=== PATIENT | female | born 1945 | race Caucasian/White ===

== ENCOUNTER 2025-02-14 20:15 | Emergency (ER) | payer MEDICARE, SELFPAY ==
--- NOTE | ~2025-02-14 | CT_ITS ---
History: Fall PROCEDURE: CT cervical spine without intravenous contrast. COMPARISON: None TECHNIQUE: Multiple contiguous axial images of the cervical spine were performed without the administration of i ntravenous contrast. DLP: 110 mGy-cm FINDINGS: Preservation of the normal curvature of the cervical spine is identified. Significant degenerative disease is identified, with osteophyte formation, disc space narrowing and e ndplate changes. 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 No acute fractures are present. The bilateral lung apices are unremarkable. No soft tissue abnormality is present. The airway is unremarkable. Impression: Degenerative disease, without acute fracture. Reviewed, dictated and finalized at location A. Impression: Degenerative disease, without acute fracture.
--- NOTE | ~2025-02-14 | CT_ITS ---
History: Fall PROCEDURE: CT head without contrast. COMPARISON: None TECHNIQUE: Axial imaging of the head performed from the skull base to the vertex without IV contrast. Sagittal a nd coronal reformations obtained. DLP: 681 mGy-cm FINDINGS: The ventricles are enlarged. The dilatation of the ventricles is proportional to the degree of sulcal prominence, not uncommon in the senescent brain. Decreased attenuation is identified within the periventricular white matter, likely secondary to micr ovascular ischemic disease, in a patient of this age. Left-sided basal ganglia calcifications. There is no mass, mass effect or midline shift. There is no abnormal extra-axial fluid collection or intracranial hemorrhage. Visualized paranasal sinuses are clear. The mastoid air cells are well aerated. No acute displaced fractures within the overlying cranium. Impression: No acute intracranial hemorrhage or suspicious mass effect. Reviewed, dictated and finalized at location A. Impression: No acute intracranial hemorrhage or suspicious mass effect.
--- NOTE | ~2025-02-14 | XR_ITS ---
CHEST RADIOGRAPH CLINICAL HISTORY: Weakness . COMPARISON: None available TECHNIQUE: Single portable view of the chest. FINDINGS The cardiomediastinal silhouette is elongated. Traction bronchiectasis is identified. Moderate emphysematous disease is also noted. The remainder of the lungs are clear. IMPRESSION: Findings suggesting chronic obstructive pulmonary disease, without focal infiltrate. Reviewed, dictated and finalized at location A. IMPRESSION: Findings suggesting chronic obstructive pulmonary disease, without focal infilt rate.
[2025-02-14 20:19] VITALS: BP 113/81; PULSE 96; RESP 15; TEMP 36.7; O2SAT 97
--- NOTE | 2025-02-14 20:25 | ECG_ITS ---
Test Date: 2025-02-14 20:27:19 Measurements Intervals [place] Rate: 91 P: 0 NE: 0 QRS: 71 QRSD: 79 T: 22 QT: 310 QTc: 383 Interpretive Statements SINUS RHYTHM WITH SHORT NE INTERVAL AND PACS NONSPECIFIC ST & T-WAVE ABNORMALITY No previous ECG available for comparison Electronically Signed On 02-15-2025 17:31:[address] M.D.
--- OUTSIDE RECORDS SUMMARY | 2025-02-14 21:06 | XMS_ITS | Encounter Summary ---
Author Organization [employer] Address 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
--- OUTSIDE RECORDS SUMMARY | 2025-02-14 21:06 | XMS_ITS | Encounter Summary ---
Author Organization [employer] Address 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
--- OUTSIDE RECORDS SUMMARY | 2025-02-14 21:06 | XMS_ITS | Clinical Summary ---
Author Organization [facility] Address [address] [place] [address] Phone Care Team Providers Care Pt Escort Name Role Phone Unavailable Primary Care Provider Unavailabl e Allergies No known active allergies Medications MULTIVITAMINS WITH FLUORIDE (MULTI-VITAMIN ORAL) Take by mouth. Activ e denosumab (PROLIA) 60 mg/mL Syringe Inject 60 mg by subcutaneous injection. Active oxyCODONE-aceta minophen (PERCOCET) 10-325 mg Tablet Take by mouth take 1-2 tabs po q 6 hr prn. 0 8 Active diazePAM (VALIUM) 5 mg tablet Take 5 mg by mouth take 1 tab po 6 hr prn anxiety or muscle spasm. 1 8 Active glucosamine/cho ndr morales A sod (OSTEO BI-FLEX ORAL) Take by mouth daily. Active Active Problems Problem Noted Date Diagnosed Date Osteoarthritis of spine 03/07/2016 Osteoporosis 03/07/2016 Overview (10/03/2018): Overview: Dr. Benjie Krause for 5 years. Brayan currently. Primary insomnia 03/07/2016 Immunizations Immunization Administration Dates Next Due (PREVNAR 13)(6 WKS UP) PNEUM OCOCCAL CONJUGATE (PCV13) 0.5 ML, IM 03/07/2016 Influenza Seasonal Unspecifi ed Formulation IM 08/29/2018,08/27/2017,08/27/2016 Family History Medical History Relation Name Comments Cancer Father Prostate Cancer Father Unknown Maternal Grandfather Unknown Maternal Grandmother Breast Cancer Mother Cancer Mother Hypertension Mother Unknown Paternal Grandfather Unknown Paternal Grandmother Healthy Sister Healthy Son Colon Cancer Neg Hx Ovarian Cancer Neg Hx Relation Name Status Comments Father Maternal Grandfather Maternal Grandmother Mother Alive Paternal Grandfather Paternal Grandmother Sister Alive Son Alive Social History Tobacco Use Types Packs/Day Years Used Date Smoking Tobacco: Never Smokeless Tobacco: Never Alcohol Use Standard Drinks/Week Comments No 0 (1 standard drink = 0.6 oz pur e alcohol) Comments No Sex and Gender Information Value Date Recorded Sex Assigned at Not on file Legal Sex Female 5:24 AM NYLON MACHINE OPERATOR Gender Identity Not on file Sexual Orientation Not on file Occupation Industry Job Start Date Job End Date Not on file Not on file Not on file Not on file Not on file Not on file Not on file Not on file Last Filed Vital Signs Vital Sign Reading Time Taken Comments Blood Pressure 134/58 10/03/2018 8:38 AM NYLON MACHINE OPERATOR Pulse 68 10/03/2018 8:38 AM NYLON MACHINE OPERATOR Temperature - - Respiratory Rate - - Oxygen Saturation 95% 10/03/2018 8:38 AM NYLON MACHINE OPERATOR Inhaled Oxygen Concentration - - Weight 53.1 kg (117 lb) 10/03/2018 8:38 AM NYLON MACHINE OPERATOR Height 157.5 cm (5' 2 ) 10/03/2018 8:38 AM NYLON MACHINE OPERATOR Body Mass Index 21.4 10/03/2018 8:38 AM NYLON MACHINE OPERATOR Plan of Treatment Health Maintenance Due Date Last Done Comments DTAP/TDAP/TD VACCINES (1 - Tdap) 1962 ZOSTER VACCINE (1 of 2) 1993 PNEUMOCOCCAL VACCINE 50+ YEA RS (2 of 2 - PPSV23) 03/07/2017 03/07/2016 RSV VACCINE (60+ or ) (1 - 1-dose 75+ series) 2018 INFLUENZA VACCINE (#1) 2024 8, 08/27/2017, 08/27/2016 COLORECTAL SCREENING Discontinued 02/09/2012 Colorectal Cancer Screening Discontinued OSTEOPOROSIS SCREENING Completed 8, 02/01/2017, 08/24/2016, Additional history exists FIT-DNA Q 3 years Discontinued FIT/FOBT Q 1 year Discontinued Flex Sig/CT Colonography Q 5 years Discontinued Insurance MEDICARE PART A [place] [id number]
--- OUTSIDE RECORDS SUMMARY | 2025-02-14 21:06 | XMS_ITS | Encounter Summary ---
Author Organization [facility] Address 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
--- OUTSIDE RECORDS SUMMARY | 2025-02-14 21:06 | XMS_ITS | Encounter Summary ---
Author Organization [employer] Address 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
--- OUTSIDE RECORDS SUMMARY | 2025-02-14 21:06 | XMS_ITS | Encounter Summary ---
Author Organization [employer] Address [address] [place] [address] Care Team Providers Care Transfer Pumper Name Role Phone Leann Kennedy MD Primary Care Provider [phone] Encounter Details Date Type Department Care Team (Late st Contact Info) Description 07/17/2002 [facility] [address] [place] [address] Larry De La O MD NO ADDRESS ON FILE Social History Tobacco Use Types Packs/Day Years Used Date Smoking Tobacco: Never Assessed Comments Unknown Sex and Gender Information Value Date Recorded Sex Assigned at Not on file Legal Sex Female 5:24 AM EXPERIMENTAL WORKER Gender Identity Not on file Sexual Orientation Not on file documented as of this encounter Plan of Treatment Not on file documented as of this encounter Visit Diagnoses Not on filedocumented in this encounter Care Teams Transfer Pumper Relationship Specialty [place] [address] [address] PCP - General Family Practice 10/03/18 10/05/20 documented as of this encounter
--- OUTSIDE RECORDS SUMMARY | 2025-02-14 21:06 | XMS_ITS | Clinical Summary ---
Author Organization [facility] Address [address] [place] [address] Care Team Providers Care Nuclear Reactor Technician Name Role Phone Alicja Waldrop MD Unavailable [phone] aSul Castrejon MD Unavailable [phone] Source Comments [facility],non-owned Affiliates and Associated Physician Practices is amultiple site organization consisting of ambulatory clinics and hospital sitesin [place], [place], [place] and [place]. This disclosure is being madepursuant to the Care Everywhere program and may not contain all information available regarding this patient. Last updated 18.[facility] [employer] Allergies No known active allergies Medications * Be aware that medications may not be up to date on this document. Alwaysverify current medications with the patient. Medication Sig Dispensed Refills Start Date End Date Status oxyCODONE-acetamin ophen (PERCOCET) 7.5-325 MG tablet Take 1 Tab by mouth every 6 hours as needed 0 02/08/2016 Active Multiple Vitamins-Minerals (CENTRUM SILVER ADULT 50+ PO) Take 1 Tab by mouth once daily Active Calcium-Phosphorus -Vitamin D (CITRACAL +D3 PO) Take 1 Each by mouth 2 times daily Active denosumab (PROLIA) 60 MG/ML SC injection Inject 60 mg subcutaneously once Every 6 months. Active Active Problems Problem Noted Date Diagnosed Date Osteoporosis 03/07/2016 Overview (03/07/2016): Dr. Benjie Krause for 5 years. Brayan currently. Primary insomnia 03/07/2016 Osteoarthritis of spine 03/07/2016 Resolved Problems Problem Noted Date Diagnosed Date Resolved Date Trauma 08/30/2017 08/30/2017 Immunizations Name Administration Dates Next Due INFLUENZA VACCINE 08/27/2017,08/27/2016 Pneumococcal Pcv13 Conj 03/07/2016 Family History Medical History Relation Name Comments Cancer - Prostate Father Cancer - Breast Mother Hypertension Mother Relation Name Status Comments Father Mother Social History Tobacco Use Types Packs/Day Years Used Date Smoking Tobacco: Never Smokeless Tobacco: Never Tobacco Cessation:Counseling Given: Yes Alcohol Use Standard Drinks/Week Comments No 0 (1 standard drink = 0.6 oz pur e alcohol) Sex and Gender Information Value Date Recorded Sex Assigned at Not on file Gender Identity Not on file Sexual Orientation Not on file Last Filed Vital Signs Vital Sign Reading Time Taken Comments Blood Pressure 124/70 08/30/2017 10:36 AM CDT Pulse 72 08/30/2017 10:36 AM CDT Temperature - - Respiratory Rate 14 08/30/2017 10:36 AM CDT Oxygen Saturation - - Inhaled Oxygen Concentration - - Weight 54 kg (119 lb) 09/06/2017 1:20 PM CDT Height 154.9 cm (5' 1 ) 09/06/2017 1:20 PM CDT Body Mass Index 22.48 09/06/2017 1:20 PM CDT Plan of Treatment Health Maintenance Due Date Last Done Comments DTAP/TDAP/TD VACCINES (1 - Tdap) 1962 ZOSTER VACCINE (1 of 2) 1993 PNEUMOCOCCAL VACCINE 50+ (2 of 2 - PPSV23) 03/07/2017 03/07/2016 BONE DENSITY TESTING 01/26/2018 01/27/2016 Respiratory Syncytial Virus (RSV) Vaccine Pt: or over 60 yrs (1 - 1-dose 75+ series) 2018 MEDICARE AWV 12 MONTHS 09/06/2018 09/06/2017, 03/07/2016 COVID-19 VACCINE (2023-2 5 season) 2024 INFLUENZA VACCINE (#1) 2024 7, 08/27/2016 DEPRESSION SCREENING 11/27/2024 HEPATITIS B VACCINE Aged Out No longe r eligible based on patient's age to complete this topic HIB VACCINE Aged Out No longer eligi ble based on patient's age to complete this topic HPV VACCINE Aged Out No longer eligi ble based on patient's age to complete this topic MENINGOCOCCAL (Group B) VACCINE SHARED DECISION-MAKING Aged Out No longer eligible based on patient's age to complete this topic MENINGOCOCCAL GROUPS A/C/Y/W VACCINE Aged Out No longer eligible b ased on patient's age to complete this topic Insurance Payer Benefit Plan / Group Subscriber ID Effective Dates Phone Address Type MEDICARE WPS MEDICARE PART B [id number] 2008-Prese nt [address] [address] [place] [address] Medicare AARP AARP MEDICARE SUPPLEMENT [id number] Effective for all dates [address] [place] [address] Commercial MEDICARE MEDICARE PART A AND B [id number] 2008-Prese nt [address] [place] [address] Medicare AAR AAR MEDICARE SUPPLEMENT [id number] 2015-Prese nt [address] [place] [address] Commercial Care Teams Nuclear Reactor Technician Relationship Specialty Start Date End Date Alicja Waldrop MD [address] [place] [address] Internal Medicine 03/07/16 Saul Castrejon MD [address] [address] Internal Medicine 03/07/16
--- OUTSIDE RECORDS SUMMARY | 2025-02-14 21:06 | XMS_ITS | Encounter Summary ---
Author Organization [employer] Address [address] [place] [address] Care Team Providers Care Caustics Loader Name Role Phone Leann Kennedy MD Primary Care Provider [phone] Encounter Details Date Type Department Care Team (Late st Contact Info) Description 06/14/2002 Outpatient Historical [facility] Support Serv. ([facility]) [address] 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
--- OUTSIDE RECORDS SUMMARY | 2025-02-14 21:06 | XMS_ITS | Encounter Summary ---
Author Organization [facility] Address [address] [place] [address] Care Team Providers Care Lead Injection Mold Technician Name Role Phone Sal Pearson MD Primary Care Provider Anastacio Lopez CROTCH BREAKER Primary Care Provider [phone] No, Physician Primary Care Provider [phone] Encounter Details Date Type Department Care Team (Late st Contact Info) Description 03/26/[address] [facility] [address] [place] [phone] Nicola Acosta, RT Social History Tobacco Use Types Packs/Day Years Used Date Smoking Tobacco: Never Smokeless Tobacco: Never Alcohol Use Standard Drinks/Week Comments No 0 (1 standard drink = 0.6 oz pur e alcohol) Comments No Sex and Gender Information Value Date Recorded Sex Assigned at Not on file Legal Sex Female 1:17 PM RELIEF PHARMACIST Gender Identity Not on file Sexual Orientation Not on file documented as of this encounter Plan of Treatment Not on file documented as of this encounter Visit Diagnoses Not on filedocumented in this encounter Care Teams Lead Injection Mold Technician Relationship Specialty Start Date End Date Sal Pearson MD [address] [facility] [address] [place] [address] PCP - General 06/25/20 12/21/21 Anastacio Lopez NP [address] [address] PCP - General Internal Medicine 12/22/21 09/11/24 No, Physician PCP - General 09/12/24 documented as of this encounter
--- OUTSIDE RECORDS SUMMARY | 2025-02-14 21:06 | XMS_ITS | Encounter Summary ---
Author Organization [employer] Address [address] [place] [address] Care Team Providers Care Agriculture Technician Name Role Phone Leann Kennedy MD Primary Care Provider [phone] Encounter Details Date Type Department Care Team (Late st Contact Info) Description 05/28/2002 Outpatient Historical [facility] Gaum, Fidel Rosa MD NO ADDRESS ON FILE CALCULUS OF KIDNEY (Primary Dx) Social History Tobacco Use Types Packs/Day Years Used Date Smoking Tobacco: Never Assessed Comments Unknown Sex and Gender Information Value Date Recorded Sex Assigned at Not on file Legal Sex Female 5:24 AM MANAGER LOCATION Gender Identity Not on file Sexual Orientation Not on file documented as of this encounter Plan of Treatment Not on file documented as of this encounter Visit Diagnoses Diagnosis Calculus of kidney- Primary documented in this encounter Care Teams Agriculture Technician Relationship Specialty [place] [address] [facility] [address] [place] [phone] PCP - General Family Practice 10/03/18 10/05/20 documented as of this encounter
--- OUTSIDE RECORDS SUMMARY | 2025-02-14 21:06 | XMS_ITS | Encounter Summary ---
Author Organization [employer] Address [address] [place] [address] Care Team Providers Care Credit Authorizer Name Role Phone Leann Kennedy MD Primary Care Provider [phone] Encounter Details Date Type Department Care Team (Latest Contact Info) Description 07/17/[address] [facility] TETE Madrigal, Fidel Rosa MD NO ADDRESS ON FILE CALCULUS OF KIDNEY (Primary Dx) Social History Tobacco Use Types Packs/Day Years Used Date Smoking Tobacco: Never Assessed Comments Unknown Sex and Gender Information Value Date Recorded Sex Assigned at Not on file Legal Sex Female 5:24 AM CYBER POLICY AND STRATEGY PLANNER Gender Identity Not on file Sexual Orientation Not on file documented as of this encounter Plan of Treatment Not on file documented as of this encounter Visit Diagnoses Diagnosis Calculus of kidney- Primary documented in this encounter Care Teams Credit Authorizer Relationship Specialty [place] [address] [facility] [address] [place] [phone] PCP - General Family Practice 10/03/18 10/05/20 documented as of this encounter
--- OUTSIDE RECORDS SUMMARY | 2025-02-14 21:06 | XMS_ITS | Encounter Summary ---
Author Organization [employer] Address 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
--- OUTSIDE RECORDS SUMMARY | 2025-02-14 21:06 | XMS_ITS | Encounter Summary ---
Author Organization [employer] Address [address] [place] [address] Care Team Providers Care Consulting Practice Manager Name Role Phone Leann Kennedy MD Primary Care Provider [phone] Encounter Details Date Type Department Care Team (Latest Contact Info) Description 09/18/2002 Outpatient Historical HIS [facility] T[facility]E Madrigal, Fidel Rosa MD NO ADDRESS ON FILE CALCULUS OF KIDNEY (Primary Dx) Social History Tobacco Use Types Packs/Day Years Used Date Smoking Tobacco: Never Assessed Comments Unknown Sex and Gender Information Value Date Recorded Sex Assigned at Not on file Legal Sex Female 5:24 AM SALES ATTENDANT Gender Identity Not on file Sexual Orientation Not on file documented as of this encounter Plan of Treatment Not on file documented as of this encounter Visit Diagnoses Diagnosis Calculus of kidney- Primary documented in this encounter Care Teams Consulting Practice Manager Relationship Specialty [place] [address] [facility] [address] [place] [phone] PCP - General Family Practice 10/03/18 10/05/20 documented as of this encounter
--- OUTSIDE RECORDS SUMMARY | 2025-02-14 21:06 | XMS_ITS | Encounter Summary ---
Author Organization [facility] Healthcare Address [address] [place] [address] Care Team Providers Care Political Science Research Assistant Name Role Phone Sal Pearson MD Primary Care Provider [phone] Anastacio Lopez NP Primary Care Provider [phone] No, Physician Primary Care Provider [phone] Encounter Details Date Type Department Care Team (Late st Contact Info) Description 10/28/2021 Telephone [facility] [address] [place] [phone] Paulino Barbosa, RT Social History Tobacco Use Types Packs/Day Years Used Date Smoking Tobacco: Never Smokeless Tobacco: Never Alcohol Use Standard Drinks/Week Comments No 0 (1 standard drink = 0.6 oz pur e alcohol) Comments No Sex and Gender Information Value Date Recorded Sex Assigned at Not on file Legal Sex Female 1:17 PM ERP SPECIALIST Gender Identity Not on file Sexual Orientation Not on file documented as of this encounter Plan of Treatment Not on file documented as of this encounter Visit Diagnoses Not on filedocumented in this encounter Care Teams Political Science Research Assistant Relationship Specialty Start Date End Date Sal Pearson MD [address] [address] PCP - General 06/25/20 12/21/21 [place] [address] [place] [address] PCP - General Internal Medicine 12/22/21 09/11/24 No, Physician PCP - General 09/12/24 documented as of this encounter
--- OUTSIDE RECORDS SUMMARY | 2025-02-14 21:06 | XMS_ITS | Clinical Summary ---
Author Organization [facility] Address [address] [place] [address] Care Team Providers Care Contact Clerk Name Role Phone Unavailable Primary Care Provider Unavailabl e Immunizations Name Administration Dates Next Due Fluzone High Dose - >Age 65 (Prefilled Syringe) 07/28/2020 MODERNA COVID-19 (12+) MRNA, LNP-S, PF, 100 MCG/ 0.5 ML DOSE 12/29/2020 Social History Tobacco Use Types Packs/Day Years Used Date Smoking Tobacco: Never Assessed Comments Unknown Sex and Gender Information Value Date Recorded Sex Assigned at Not on file Legal Sex Female 7:12 PM CDT Gender Identity Not on file Sexual Orientation Not on file Plan of Treatment Health Maintenance Due Date Last Done Comments DTaP, Tdap and Td Vaccines ( 1 - Tdap) 1962 Zoster Vaccines (1 of 2) 1993 Dexa Scan (General) 2008 Pneumococcal Vaccine: 65+ Ye ars (1 of 1 - PCV) 2008 RSV Immunization or 60+ Years (1 - 1-dose 75+ series) 2018 COVID-19 Vaccine (2 - 2023-2 5 season) 2024 12/29/2020 Influenza Adult (#1) 2024 07/28/2020 Meningococcal B Vaccine Aged Out No l onger eligible based on patient's age to complete this topic Meningococcal Vaccine Aged Out No danuta will eligible based on patient's age to complete this topic RSV Immunizations Under 20 Months Aged Out No longer eligible based on patient's age to complete this topic
--- OUTSIDE RECORDS SUMMARY | 2025-02-14 21:06 | XMS_ITS | Encounter Summary ---
Author Organization [facility] Address [address] [place] [address] Phone Care Team Providers Care Air Support Operations Operator Name Role Phone Anastacio Lopez NP Primary Care Provider [phone] No, Physician Primary Care Provider [phone] Encounter Details Date Type Department Care Team (Late st Contact Info) Description 10/18/2022 Treatment [facility] [address] [facility] Medical Office Building [address] [place] [address] Jaylin Mojica DNP 10 [facility] [address] [place] [address] Age-related osteoporosis without current pathological fracture (Primary Dx) Social History Tobacco Use Types Packs/Day Years Used Date Smoking Tobacco: Never Smokeless Tobacco: Never Alcohol Use Standard Drinks/Week Comments No 0 (1 standard drink = 0.6 oz pur e alcohol) Comments No Sex and Gender Information Value Date Recorded Sex Assigned at Not on file Legal Sex Female 1:17 PM 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
--- OUTSIDE RECORDS SUMMARY | 2025-02-14 21:06 | XMS_ITS | Encounter Summary ---
Author Organization [employer] Address 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
--- OUTSIDE RECORDS SUMMARY | 2025-02-14 21:06 | XMS_ITS | Clinical Summary ---
Author Organization [facility] Address [address] [place] [address] Care Team Providers Care Insurance Account Executive Name Role Phone No, Physician Primary Care Provider [phone] Allergies No known active allergies Medications lidocaine (LIDODERM) 5 % Place 1 patch on the skin daily Remove & discard patch within 12 hours or as directed by . 30 patch 12/07/2022 Active QUEtiapine (SEROquel) 25 mg tablet Take 1 tablet (25 mg total) by mouth nightly 30 tablet 12/06/2022 Active susana jab-xqm-O3-Zn-c op-man-bor 250-40-125 mg-mg-unit tablet Take 1 tablet by mouth nightly 30 tablet 11 12/07/2022 Active memantine (NAMENDA) 5 mg tabletIndicatio ns:Moderate to Severe Alzheimer's Type Dementia Take 1 tablet (5 mg total) by mouth nightly for 3 doses 3 tablet 12/07/2022 Active oxyCODONE-aceta minophen (PERCOCET) 10-325 mg per tabletIndicatio ns:Pain Take 1-2 tablets every 6 hours as needed for pain 180 tablet 12/31/2024 Active Active Problems Problem Noted Date Diagnosed Date Traumatic pneumothorax, initial encounter 2022 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 06/15/2020 Overview (06/15/2020): Added automatically from request for surgery [id number] Primary osteoarthritis of knees, bilateral 05/06 Combined forms of age-related cataract of right eye 01/30/2019 Overview (01/30/2019): Added automatically from request for surgery [id number] Osteoporosis 09/21/2018 Surgical History Surgery Date Site/Laterality Comments PARATHYROID GLAND SURGERY Parathyroid Surgery - (Added by GINNY Conv) FLUORO GUIDED INJECTION SHOU LDER LEFT 04/27/2020 Left CHOLECYSTECTOMY Cholecystectomy - (Added by GINNY Conv) FLUORO GUIDED ASPIRATION OR INJECTION LARGE JOINT BILATERAL 12/01/2020 Bilateral FLUORO GUIDED INJECTION SHOU LDER RIGHT 03/30/2021 Right FLUORO GUIDED INJECTION SHOU LDER LEFT 01/30/2019 Left FLUORO GUIDED INJECTION SHOU LDER RIGHT 07/26/2021 Right FLUORO GUIDED INJECTION SHOU LDER RIGHT 11/01/2021 Right FLUORO GUIDED INJECTION SHOU LDER RIGHT 02/01/2022 Right Medical History Medical History Date Comments Pneumothorax, closed, traumatic 11/30/2022 Multiple rib fractures, right 3, 4, 5, 6, 7 02/2023 T12 compression fracture (HCC) Low bone mass Primary osteoarthritis, right shoulder Primary osteoarthritis, left shoulder Primary osteoarthritis of left knee Primary osteoarthritis of right knee DDD (degenerative disc disease), cervical Foraminal stenosis of cervical region Spondylolisthesis, cervical region 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 Lumbar facet arthropathy Family History Medical History Relation Name Comments Heart disease Father PONV Mother Relation Name Status Comments Father Mother Social History Tobacco Use Types Packs/Day Years Used Date Smoking Tobacco: Never Smokeless Tobacco: Never Tobacco Cessation:Counseling Given: Not Answered Alcohol Use Standard Drinks/Week Comments No 0 (1 standard drink = 0.6 oz pur e alcohol) Personal Safety Answer Date Recorded Getting School Help Needed Denies 11/14 Comments No Sex and Gender Information Value Date Recorded Sex Assigned at Not on file Legal Sex Female 1:17 PM POSITION CLERK Gender Identity Not on file Sexual Orientation Not on file Obstetrics History Last Filed Vital Signs Vital Sign Reading Time Taken Comments Blood Pressure 133/78 01/02/2023 1:25 PM POSITION CLERK Pulse 82 01/02/2023 1:25 PM POSITION CLERK Temperature 36.7 C (98 F) 01/02/2023 1:25 PM POSITION CLERK Respiratory Rate 18 01/02/2023 1:25 PM POSITION CLERK Oxygen Saturation 97% 01/02/2023 1:25 PM POSITION CLERK Inhaled Oxygen Concentration - - Weight 46.3 kg (102 lb) 09/18/2024 8:36 AM CDT Height 152.4 cm (5') 09/18/2024 8:36 AM CDT Body Mass Index 19.92 09/18/2024 8:36 AM CDT Plan of Treatment Health Maintenance Due Date Last Done Comments Depression Screening 1945 DTaP/Tdap/Td Vaccine (1 - Tdap) 1954 Hepatitis B Screening 1961 Well Visit 65+ 2008 Pneumococcal vaccine 65+ (2 of 2 - PPSV23) 03/07/2017 03/07/2016 Zoster Vaccine (2 of 2) 12/23/2022 10/28/2022 Osteoporosis Screening-Bone Density Scan 10/18/2023 10/18/2021, 09/11/2019, 08/08/2018, Additional history exists Fall Risk Assessment 12/07/2023 12/07/2022 Covid-19 Vaccine (6 - 2023-2 5 season) 2024 09/22/2022, 02/24/2022, 09/18/2021, Additional history exists Influenza Vaccine (#1) 2024 , 07/28/2021, 07/28/2020, Additional history exists Medical Devices Implanted Type Area Transit Police Officer Device Identifier Shelf Expiration Date Model / Serial / Lot [employer] Sn60wf.225 Acrysof Iq Natural Stableforce Acrysert 6mm 13mm 1 Piece Foldable - [id number] - [id number] Implanted:Qty: 1 on 02/14/2019 by Luis Hernandez MD at [facility] Lens Right: Eye [employer] [id number] 08/26/2023 SN60WF.22 5 / [id number] / 0 Description:Intraocular lens [employer] Sn60wf.220 Acrysof Iq Natural Stableforce Acrysert 6mm 13mm 1 Piece Foldable - [id number] - [id number] Implanted:Qty: 1 on 06/25/2020 by Luis Hernandez MD at [facility] Lens Left: Eye [employer] [id number] 10/26/2024 SN60WF.22 0 / [id number] / 0 Procedures Procedure Name Priority Date/Time Associated Diagnosis Comments DEXA AXIAL SKELETON BONE DENSITY 1 OR MORE SITES Schedule Routine, Read Routine (OP Routine) 10/18/2021 8:09 AM POSITION CLERK Age-related osteoporosis without current pathological fracture from Last 3 Months or Most Recently Relevant to Health Maintenance Results * Dexa Axial Skeleton Bone Density 1 or 2 Site (10/18/2021 8:09 AM POSITION CLERK) Anatomical Region Laterality Modality Body N/A Radiographic Juliet ging Narrative 10/26/2021 8:44 AM POSITION CLERK Patient Name: Elena Goncalves Date of : 1945 Date of scan: 10/18/2021 Bone mineral density was performed on a [employer] Discovery Densitometer. Based on machine cross-calibration and precision studies the least significant changes of this densitometer is 0.024 g/cm2 at the spine, 0.020 g/cm2 at the total proximal femur, and 0.014g/cm2 at the forearm. HISTORY: This is a 76 y.o. postmenopausal female with a history of osteoporosis. She reports that she has never smoked. She has never used smokeless tobacco. She is currently on treatment with calcium, vitamin D and denosumab (Prolia); and was previously treated with zoledronic acid (Reclast) and teriparatide (Forteo). She has a current complaint of arm pain and back pain. INDICATIONS: Menopause status, treatment monitoring and history of osteoporosis. FINDINGS: BONE MINERAL DENSITY OF THE LUMBAR SPINE Bone Mineral Density (BMD) of the lumbar spine was measured from L1-L4 and the average density was calculated to be 0.802 gm/cm2. This corresponds to a T-score (standard deviations from the mean of young adults) of -2.2. When compared to the previous study of 09/11/2019 there has been a 0.049 gm/cm (6.5%) increase in bone density that is considered significant. BONE MINERAL DENSITY OF THE PROXIMAL FEMUR Bone Mineral Density (BMD) of the left hip total was found to be 0.721 gm/cm2. This corresponds to a T-score standard deviations from the mean of young adults of -1.8. Femoral neck is 0.664 gm/cm2 with a T-score (standard deviations from the mean of young adults) of -1.7. When compared to the previous study of 09/11/2019 there has been no significant changes in bone density. SUMMARY: Bone mineral density shows evidence of low bone mass at the lumbar spine and proximal femur and moderately increased fracture risk (Osteopenia). There has been a significant increase in bone density since previous measurement. ADDITIONAL COMMENTS: Postmenopausal Women and Men Over 50: Diagnostic criteria: Osteoporosis: BMD at or below -2.5 T-score; Osteopenia (low bone mass): BMD between -1.0 and -2.5 T-score. If the patient has a history of a fragility fracture, a fracture that occurred with trauma equivalent to a fall from a standing position or less, then the diagnosis is osteoporosis regardless of bone density. Please note that there is an artifact in the lumbar spine scan that is unable to be removed. The history and data sections of the bone mineral density scan were prepared by Zahida Watkins) LATONIA who is accredited by the International Society of Clinical Densitometry. The overall patient assessment and scan interpretation were performed by Alicja Waldrop M.D. who is certified by the International Society of Clinical Densitometry. [id number] Alicja Waldrop MD IMG DXA PROCEDURES Final Re sult from Last 3 Months or Most Recently Relevant to Health Maintenance [facility] U[facility] MEDICARE ADVANTAGE UHC MEDICARE ADVANTAGE [facility] [address] MED[address]VANTAGE Advance Directives For more information, please contact: [phone] * LIMITED - No CPR (Latest Code Status on File) Date Activated Date Inactivated Comments 12/01/2022 1:56 PM 12/07/2022 7:31 PM Question Answer Comments Provide aggressive medical m anagement before a full cardiopulmonary arrest occurs. Use antibiotics, IV Fluids, and medical treatment unless specifically selected below: No intubationNo cardioversionNo internal / external pacemaker Discussed with the following attending physician: She wants to go [facility] * Full Code Date Activated Date Inactivated Comments 11/30/2022 3:55 PM 12/01/2022 1:56 PM * Full Code Date Activated Date Inactivated Comments 06/24/2020 5:45 PM 06/25/2020 4:19 PM * Full Code Date Activated Date Inactivated Comments 02/13/2019 11:48 AM 02/14/2019 5:13 PM Care Teams Insurance Account Executive Relationship Specialty Start Date End Date No, Physician PCP - General 09/12/24
--- OUTSIDE RECORDS SUMMARY | 2025-02-14 21:06 | XMS_ITS | Encounter Summary ---
Author Organization [employer] Address 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
--- OUTSIDE RECORDS SUMMARY | 2025-02-14 21:06 | XMS_ITS | Encounter Summary ---
Author Organization [employer] Address 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
--- OUTSIDE RECORDS SUMMARY | 2025-02-14 21:06 | XMS_ITS | Encounter Summary ---
Author Organization [facility] Address [address] [place] [address] Care Team Providers Care Male Infertility Specialist Name Role Phone Sal Pearson MD Primary Care Provider [phone] Anastacio Lopez NP Primary Care Provider [phone] No, Physician Primary Care Provider [phone] Encounter Details Date Type Department Care Team (Late st Contact Info) Description 07/05/2021 Telephone [facility] [address] [place] [address] [phone] [place], [place] Social History Tobacco Use Types Packs/Day Years Used Date Smoking Tobacco: Never Smokeless Tobacco: Never Alcohol Use Standard Drinks/Week Comments No 0 (1 standard drink = 0.6 oz pur e alcohol) Comments No Sex and Gender Information Value Date Recorded Sex Assigned at Not on file Legal Sex Female 1:17 PM CLINICAL RESOURCE NURSE Gender Identity Not on file Sexual Orientation Not on file documented as of this encounter Plan of Treatment Not on file documented as of this encounter Visit Diagnoses Not on filedocumented in this encounter Care Teams Male Infertility Specialist Relationship Specialty Start Date End Date Sal Pearson MD [address] [facility] [address] [place] [address] PCP - General 06/25/20 12/21/21 Anastacio Lopez NP [address] [address] PCP - General Internal Medicine 12/22/21 09/11/24 No, Physician PCP - General 09/12/24 documented as of this encounter
--- OUTSIDE RECORDS SUMMARY | 2025-02-14 21:06 | XMS_ITS | Encounter Summary ---
Author Organization [facility] Address [address] [place] [address] Care Team Providers Care Textile Science Technician Name Role Phone Leann Kennedy MD Primary Care Provider [phone] Encounter Details Date Type Department Care Team (Latest Contact Info) Description 08/07/2002 Outpatient Historical [facility] Madrigal, Fidel Rosa MD NO ADDRESS ON FILE CALCULUS OF URETER (Primary Dx) Social History Tobacco Use Types Packs/Day Years Used Date Smoking Tobacco: Never Assessed Comments Unknown Sex and Gender Information Value Date Recorded Sex Assigned at Not on file Legal Sex Female 5:24 AM LOT BOSS Gender Identity Not on file Sexual Orientation Not on file documented as of this encounter Plan of Treatment Not on file documented as of this encounter Visit Diagnoses Diagnosis Calculus of ureter- Primary documented in this encounter Care Teams Textile Science Technician Relationship Specialty [place] [address] [facility] [address] [place] [phone] PCP - General Family Practice 10/03/18 10/05/20 documented as of this encounter
--- OUTSIDE RECORDS SUMMARY | 2025-02-14 21:06 | XMS_ITS | Referral Summary ---
Author Organization [facility] Address [address] [place] [address] Care Team Providers Care Marble Coper Name Role Phone No, Physician Primary Care Provider [phone] Allergies No known active allergies Medications lidocaine (LIDODERM) 5 % Place 1 patch on the skin daily Remove & discard patch within 12 hours or as directed by MD. 30 patch 12/07/2022 Active QUEtiapine (SEROquel) 25 mg tablet Take 1 tablet (25 mg total) by mouth nightly 30 tablet 12/06/2022 Active susana lwl-gsm-R7-Zn-c op-man-bor 250-40-125 mg-mg-unit tablet Take 1 tablet [...] (06/15/2020): Added automatically from request for surgery [id number] Primary osteoarthritis of knees, bilateral 05/06 Combined forms of age-related cataract of right eye 01/30/2019 Overview (01/30/2019): Added automatically from request for surgery [id number] Osteoporosis 09/21/2018 Social History Tobacco Use Types Packs/Day Years [...] on file Legal Sex Female 1:17 PM SENIOR OPERATIONS MANAGER Gender Identity Not on file Sexual Orientation Not on file Last Filed Vital Signs Vital Sign Reading Time Taken Comments Blood Pressure 133/78 01/02/2023 1:25 PM SENIOR OPERATIONS MANAGER Pulse 82 01/02/2023 1:25 PM SENIOR OPERATIONS MANAGER Temperature 36.7 C (98 F) 01/02/2023 1:25 PM SENIOR OPERATIONS MANAGER Respiratory Rate 18 01/02/2023 1:25 PM SENIOR OPERATIONS MANAGER Oxygen Saturation 97% 01/02/2023 1:25 PM SENIOR OPERATIONS MANAGER Inhaled Oxygen Concentration - - Weight 46.3 kg (102 lb) 09/18/2024 8:36 AM CDT Height 152.4 cm (5') 09/18/2024 8:36 AM CDT Body Mass Index 19.92 09/18/2024 8:36 AM CDT Plan of Treatment Not on file Medical Devices Implanted Type Area Risk Professional Device Identifier Shelf Expiration Date Model / Serial / Lot [employer] Sn60wf.225 Acrysof Iq Natural Stableforce Acrysert 6mm 13mm 1 Piece Foldable - [id number] - [id number] Implanted:Qty: 1 on 02/14/2019 by Luis Hernandez MD at [facility] Lens Right: Eye [employer] [id number] 08/26/2023 SN60WF.22 5 / [id number] / 0 Description:Intraocular lens [employer] Sn60wf.220 Acrysof Iq Natural St[employer] Acrysert 6mm 13mm 1 Piece Foldable - [id number] - [id number] Implanted:Qty: 1 on 06/25/2020 by Luis Hernandez MD at [facility] Lens Left: Eye [employer] [id number] 10/26/2024 SN60WF.22 0 / [id number] / 0 Procedures Procedure Name Priority Date/Time Associated Diagnosis Comments DEXA AXIAL SKELETON BONE DENSITY 1 OR MORE SITES Schedule Routine, Read Routine (OP Routine) 10/18/2021 8:09 AM SENIOR OPERATIONS MANAGER Age-related osteoporosis without current pathological fracture from Last 3 Months or Most Recently Relevant to Health Maintenance Results * Dexa Axial Skeleton Bone Density 1 or 2 Site (10/18/2021 8:09 AM SENIOR OPERATIONS MANAGER) Anatomical Region Laterality Modality Body N/A Radiographic Juliet ging Narrative 10/26/2021 8:44 AM SENIOR OPERATIONS MANAGER Patient Name: Elena Goncalves Date of : 1945 Date of scan: 10/18/2021 Bone mineral density was performed on a [employer] Discovery Densitometer. Based on machine cross-calibration and [...] by the International Society of Clinical Densitometry. [id number] Alicja Waldrop MD IMG DXA PROCEDURES Final Re sult from Last 3 Months or Most Recently Relevant to Health Maintenance [facility] Address: [address] [address] [place] [address] UHC MEDICARE ADVANTAGE [facility] MEDICARE Address: [address] [address] [place] [id number] UHC MEDICARE ADVANTAGE [facility] Address: [address] [place], [place] [phone] [facility] MEDICARE ADVANTAGE Advance Directives For more information, please contact: [phone] * LIMITED - No CPR (Latest Code [...] 11:48 AM 02/14/2019 5:13 PM Care Teams Marble Coper Relationship Specialty Start Date End Date No, Physician PCP - General 09/12/24
--- OUTSIDE RECORDS SUMMARY | 2025-02-14 21:06 | XMS_ITS | Encounter Summary ---
Author Organization [facility] Address 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
--- OUTSIDE RECORDS SUMMARY | 2025-02-14 21:06 | XMS_ITS | Encounter Summary ---
Author Organization [facility] Address [address] [place] [address] Care Team Providers Care Operating Room Specialist Name Role Phone Leann Kennedy MD Primary Care Provider [phone] Encounter Details Date Type Department Care Team (Latest Contact Info) Description 07/24/2002 Outpatient Historical HIS [facility] Madrigal, Fidel Rosa MD NO ADDRESS ON FILE CALCULUS OF URETER (Primary Dx) Social History Tobacco Use Types Packs/Day Years Used Date Smoking Tobacco: Never Assessed Comments Unknown Sex and Gender Information Value Date Recorded Sex Assigned at Not on file Legal Sex Female 5:24 AM GASTROENTEROLOGY TECHNICIAN Gender Identity Not on file Sexual Orientation Not on file documented as of this encounter Plan of Treatment Not on file documented as of this encounter Visit Diagnoses Diagnosis Calculus of ureter- Primary documented in this encounter Care Teams Operating Room Specialist Relationship Specialty [place] [address] [facility] [address] [place] [phone] PCP - General Family Practice 10/03/18 10/05/20 documented as of this encounter
--- OUTSIDE RECORDS SUMMARY | 2025-02-14 21:06 | XMS_ITS | Encounter Summary ---
Author Organization [employer] Address 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
[2025-02-14 21:31] LABS: Basophils Percent Auto 0.2 % (0.2-1.2); Hematocrit 31.8 % (37.0-47.0); Immature Granulocyte Absolute 0.03 K/mm3 (0.00-0.031); Immature Granulocyte Percent A 0.5 % (0-0.5); Lymphocytes Absolute Auto 0.91 K/mm3 (0.9-3.2); Lymphocytes Percent Auto 14.2 % (18.3-44.2); Mean Corpuscular HGB Conc 34.6 g/dl (32-36); Mean Corpuscular Hemoglobin 32.9 pg (26-34); Mean Corpuscular Volume 95.2 fl (80-100); Mean Platelet Volume 10.3 fl (7.4-10.4); Monocytes Absolute Auto 0.3 K/mm3 (0.1-0.6); Monocytes Percent Auto 5.3 % (2.6-8.5); Neutrophils Absolute Auto 5.1 K/mm3 (1.3-6.7); Neutrophils Percent Auto 79.8 % (45.5-73.1); Platelet Count Result 232 k/mm3 (150-375); Red Blood Count 3.34 M/mm3 (4.2-5.4); Red Cell Distribution Width 15.8 % (11.5-14.5); White Blood Count 6.4 K/mm3 (4.5-10.0)
[2025-02-14 21:41] LABS: Alanine Aminotransferase 45 U/L (6-35); Albumin Level 2.8 g/dL (3.5-5.1); Alkaline Phosphatase 70 U/L (38-126); Anion Gap 11 mmol/L (4-12); Aspartate Amino Transferase 45 U/L (14-36); Bilirubin,Total 1.6 mg/dL (0.2-1.3); Blood Urea Nitrogen 16 mg/dL (7-17); Calcium 7.8 mg/dL (8.4-10.2); Carbon Dioxide 27 mmol/L (22-30); Chloride 101 mmol/L (98-107); Creatine Kinase 71 U/L (30-135); Estimated CRCL calculation 39 ml/min; Estimated Glomerular Filt Rate > 60; Glucose 78 mg/dL (65-110); Lactic Acid Reflex 1.1 mmol/L (0.7-2.0); Magnesium 1.5 mg/dL (1.6-2.3); Potassium 2.9 mmol/L (3.4-5.0); Sodium 139 mmol/L (137-145)
[2025-02-14 21:45] LABS: Prothrombin Time 13.3 Seconds (11.1-14.7)
[2025-02-14 21:46] LABS: Partial Thromboplastin Time 30.3 Seconds (22.3-36.8)
[2025-02-14 21:55] LABS: NT Pro B Type Natriuretic Pept 4140 pg/mL (19.9-100); Troponin I 0.077 ng/mL (0.000-0.034)
[2025-02-14] MEDS: TETANUS,DIPHTHERIA,AC PERTUSSIS ADULT (0.5 ML) BOOSTRIX IM (21:57)
[2025-02-14 22:07] LABS: Influenza A QL RT-PCR Negative (Negative); Influenza B QL RT-PCR Negative (Negative); RSV RNA, RT-PCR Negative (Negative); SARS-CoV-2 RNA PCR Negative (Negative)
[2025-02-14 22:21] VITALS: BP 105/77; PULSE 93; RESP 20; O2SAT 95
[2025-02-14] MEDS: MAGNESIUM SULF 2 GM/WATER 50ML 2 GM/50 ML BAG IVPB (22:22)
--- NOTE | 2025-02-14 22:31 | PC.NURSE ---
patient advised we needed a urine sample. patient states unable to void at this time. CRN aware.
--- NOTE | 2025-02-14 23:03 | ED_ITS ---
HPI - General Adult General Chief complaint: Altered Mental Status Stated complaint: head injury, forgetful, found by welfare check Time Seen by Provider: 02/14/25 20:46 History of Present Illness HPI narrative: Patient 79-year-old female presents emergency department chief complaint of fall and confusion. Patient was brought in by EMS after a welfare check was called the patient lives independently and has had some issues with early dementia but is normally alert oriented x3 and is able to refuse care the patient states she does not want to be year reports she knows what year it is knows where she is at and knows what month it is the patient states that she does not want any evaluation or any treatment Related Data Allergies Allergy/AdvReac Type Severity Reaction Status Date / Time No Known Allergies Allergy Unverified 11/10/12 13:05 Review of Systems 2 Review of Systems: A 10 system review of systems was completed on the patient and is negative except for what is stated in the HPI. Nursing and ancillary documentation was reviewed. Exam 2 Narrative: GENERAL: Well-appearing, well-nourished, and in no acute distress. HEAD: Normocephalic, atraumatic. Dried blood on the scalp EYES: PERRLA and EOMI. ENT: Nares clear, no rhinorrhea or epistaxis. Mucous membranes moist. NECK: Supple. CHEST: Clear to auscultation. No respiratory distress. HEART: Regular rate and rhythm. No murmur heard. Normal peripheral pulses. ABDOMEN: Soft, nontender, nondistended, normal active bowel sounds. EXTREMITIES: Normal range of motion. No edema. SKIN: Warm, dry, no rash. NEURO: No focal deficits. Alert and oriented x3. PSYCH: Normal mood and affect. Course Vital Signs Vital signs: Vital Signs Temperature 36.7 C 02/14/25 20:19 Pulse Rate 96 02/14/25 20:19 Respiratory Rate 15 02/14/25 20:19 Blood Pressure 113/81 02/14/25 20:19 Pulse Oximetry 97 02/14/25 20:19 Oxygen Delivery Room Air 02/14/25 20:19 Temperature 36.7 C 02/14/25 20:19 Pulse Rate 93 02/14/25 22:21 Respiratory Rate 20 02/14/25 22:21 Blood Pressure 105/77 02/14/25 22:21 Pulse Oximetry 95 02/14/25 22:21 Oxygen Delivery Room Air 02/14/25 20:19 Medical Decision Making MDM Narrative Medical decision making narrative: Differential diagnosis includes intracranial hemorrhage, cervical spine fracture, electrolyte abnormality, ACS, dehydration, UTI Patient did have a slightly elevated troponin 0.077 BNP was elevated at 4140 magnesium was 1.5 creatinine 0.51 Was discussed with the patient admission patient is currently alert oriented x3 understands that she could if she goes home or suffers permanent disability the patient is adamant that she wants to go home and does not want care the patient is not suicidal at this time the patient does have the right to be able to sign out against medical advice Vital Signs Vital Signs: Vital Signs Temperature 36.7 C 02/14/25 20:19 Pulse Rate 96 02/14/25 20:19 Respiratory Rate 15 02/14/25 20:19 Blood Pressure 113/81 02/14/25 20:19 Pulse Oximetry 97 02/14/25 20:19 Oxygen Delivery Room Air 02/14/25 20:19 Temperature 36.7 C 02/14/25 20:19 Pulse Rate 93 02/14/25 22:21 Respiratory Rate 20 02/14/25 22:21 Blood Pressure 105/77 02/14/25 22:21 Pulse Oximetry 95 02/14/25 22:21 Oxygen Delivery Room Air 02/14/25 20:19 Lab Data 02/14/25 21:20 02/14/25 21:20 Labs: Lab Results 02/14/25 Range/Units 21:20 WBC 6.4 (4.5-10.0) K/mm3 RBC 3.34 L (4.2-5.4) M/mm3 Hgb 11.0 L (12.0-15.0) g/dL Hct 31.8 L (37.0-47.0) % MCV 95.2 (80-100) fl MCH 32.9 (26-34) pg MCHC 34.6 (32-36) g/dl RDW 15.8 H (11.5-14.5) % Plt Count 232 (150-375) k/mm3 MPV 10.3 (7.4-10.4) fl Immature Gran % (Auto) 0.5 (0-0.5) % Neut % (Auto) 79.8 H (45.5-73.1) % Lymph % (Auto) 14.2 L (18.3-44.2) % [place] % (Auto) 5.3 (2.6-8.5) % Eos % (Auto) 0.0 (0-4.4) % Baso % (Auto) 0.2 (0.2-1.2) % Lymph # (Auto) 0.91 (0.9-3.2) K/mm3 [place] # (Auto) 0.3 (0.1-0.6) K/mm3 Eos # (Auto) 0.0 (0-0.3) K/mm3 Baso # (Auto) 0.0 (0.0-0.1) K/mm3 Abs Immat Gran (auto) 0.03 (0.00-0.031) K/mm3 Absolute Neuts (auto) 5.1 (1.3-6.7) K/mm3 Absolute Nucleated RBC 0.000 (0.0-0.012) K/mm3 Nucleated RBC % 0.0 (0.0-0.2) % PT 13.3 (11.1-14.7) Seconds INR 1.0 APTT 30.3 (22.3-36.8) Seconds Sodium 139 (137-145) mmol/L Potassium 2.9 L (3.4-5.0) mmol/L Chloride 101 (98-107) mmol/L Carbon Dioxide 27 (22-30) mmol/L Anion Gap 11 (4-12) mmol/L BUN 16 (7-17) mg/dL Creatinine 0.51 L (0.7-1.0) mg/dL Estim Creat Clear Calc 39 ml/min Estimated GFR > 60 (59 - ) Glucose 78 (65-110) mg/dL Lactic Acid 1.1 (0.7-2.0) mmol/L Calcium 7.8 L (8.4-10.2) mg/dL Magnesium 1.5 L (1.6-2.3) mg/dL Total Bilirubin 1.6 H (0.2-1.3) mg/dL AST 45 H (14-36) U/L ALT 45 H (6-35) U/L Alkaline Phosphatase 70 (38-126) U/L Total Creatine Kinase 71 (30-135) U/L Troponin I 0.077 H* (0.000-0.034) ng/mL NT-Pro-B Natriuret Pep 4140 H (19.9-100) pg/mL Total Protein 6.0 L (6.3-8.2) g/dL Albumin 2.8 L (3.5-5.1) g/dL Influenza A (RT-PCR) Negative (Negative) Influenza B (RT-PCR) Negative (Negative) RSV (RT-PCR) Negative (Negative) SARS-CoV-2 RNA (RT-PCR) Negative (Negative) Discharge Plan Discharge Clinical Impression: Elevated troponin, Generalized weakness, Hypomagnesemia Patient Disposition: Left Against Medical Advice Condition: Guarded Prognosis Instructions: Heart Attack (DC), Hypomagnesemia (ED) Additional Instructions: Please return to the emergency department if you wish treatment Patient Language: Wolof Follow-up/Referrals: Rodríguez Fair MD [Physician] - UNKNOWN,DOCTOR [Primary Care Provider] - Time of Disposition: 23:09
== END 2025-02-15 | disposition left against medical advice (07) ==
PROVIDERS: Emergency Provider Emergency Medicine
DX: R53.1 Weakness (principal); E83.42 Hypomagnesemia; R79.89 Other specified abnormal findings of blood chemistry; Z20.822 Contact with and (suspected) exposure to COVID-19; F03.90 Unspecified dementia, unspecified severity, without behavioral disturbance, psychotic disturbance, mood disturbance, and anxiety; R94.31 Abnormal electrocardiogram [ECG] [EKG]
CPT/HCPCS: 36415; 70450; 71045; 72125; 80053; 82550; 83605; 83735; 83880; 84484; 85025; 85610; 85730; 87637; 90471; 90715; 93005; 96365; 96366; 99284; J3475

== ENCOUNTER 2025-02-17 18:06 | Inpatient (IN) | payer MEDICARE, SELFPAY ==
--- NOTE | ~2025-02-17 | XR_ITS ---
EXAMINATION: XR chest 1V portable Exam Date/Time: 02/17/2025 18:57 CDT HISTORY: cough Comparison: 02/14/2025. RESULT: Lines, tubes, and devices: Cholecystectomy clips. Lungs and pleura: No focal consolidation, pleural effusion, or pneumothorax. Emphysematous change. C alcified right apical granuloma. Cardiomediastinal silhouette: Stable. Calcified nodes. Other: No acute osseous or upper abdominal finding. Stable upper abdominal calcifications likely a c ombination of vascular, granulomatous, and costochondral calcifications. IMPRESSION: No acute cardiopulmonary process. Reviewed, dictated and finalized at location K.
--- NOTE | ~2025-02-17 | CT_ITS ---
EXAMINATION: CT brain wo con DATE: 02/17/2025 21:18 INDICATION: trauma . TECHNIQUE: Computed tomography (CT) of the head was performed without intravenous contrast. The mA wa s adjusted according to patient size. Iterative reconstruction technique was employed. The dose-lengt h product was 605.33 mGy-cm. COMPARISON: 02/14/2025. FINDINGS: No acute intracranial hemorrhage or extra-axial fluid collection. No hydrocephalus, mass, or herniation. No acute ischemic infarct. Unremarkable dural venous sinus attenuation. No acute osseous abnormality. Possible left frontal scalp laceration. Partial right inferior frontal, and bilateral middle ethmoid opacification, the remaining aerated spa deb are clear. Mild atrophy and chronic white matter change. Atherosclerotic intracranial calcification. Bilateral l ens replacements. Left basal ganglia calcification. IMPRESSION: No acute intracranial process. Reviewed, dictated and finalized at location K.
--- NOTE | ~2025-02-17 | CT_ITS ---
EXAMINATION: CT facial & cervical spine wo DATE: 02/17/2025 21:18 INDICATION: trauma TECHNIQUE: Computed tomography (CT) of the maxillofacial region and cervical spine was performed with out intravenous contrast. Automated exposure control and iterative reconstruction technique were empl oyed. The dose-length product was 134.79 mGy-cm. COMPARISON: C-spine and CT brain 02/14/2025 FINDINGS: CERVICAL: Vertebral Body Alignment: Intact. Craniocervical and atlantoaxial alignment: Moderate degenerative change. Alignment intact. Osseous structures/fracture: No evidence of a lytic or blastic process in the visualized spine. No e vidence of acute fracture. Cervical soft tissues: The paraspinal soft tissues planes are maintained. Surgical clips in the soft tissues about the thyroid. Bilateral carotid bifurcation calcified plaque. Degenerative changes: Multilevel degenerative disc disease and facet arthropathy. Severe left neural foraminal narrowing at C5-6 secondary to degenerative changes. No severe central canal narrowing. FACE: Soft Tissues: Mild soft tissue swelling over the left cheek. Facial bones: No acute fracture. No lytic or blastic process. Eyes: The globes are intact. Bilateral lens replacements. The soft tissue planes of the orbits are m aintained. Paranasal Sinuses: Partial opacification of the inferior right frontal sinus and middle ethmoid sinu ses, the remaining aerated spaces are clear. Foreign Bodies: No radiopaque foreign bodies. Other Findings: Bilateral TMJ osteoarthritis. Dental caries and periodontal disease. IMPRESSION: No acute fracture or traumatic malalignment in the cervical spine. No acute facial bone fracture. Reviewed, dictated and finalized at location K. IMPRESSION: No acute fracture or traumatic malalignment in the cervical spine. No acute fac ial bone fracture.
[2025-02-17 18:15] VITALS: BP 115/72; PULSE 105; RESP 20
[2025-02-17 18:25] LABS: Glucose Point of Care 84 mg/dl (65-105)
--- NOTE | 2025-02-17 18:25 | ECG_ITS ---
Test Date: 2025-02-17 18:43:25 Measurements Intervals Agency Rate: 108 P: 0 OK: 0 QRS: 73 QRSD: 78 T: -41 QT: 323 QTc: 433 Interpretive Statements POSSIBLY SINUS WITH SHORT OK INTERVAL WITH FREQUENT PACS AND OCCASIONAL PVC BASELINE ARTIFACT LIMITS INTERPRETATION NONSPECIFIC ST & T-WAVE ABNORMALITY Compared to ECG 02/14/2025 20:27:19 Ventricular premature complex(es) now present Aberrant conduction of supraventricular beat(s) now present Electronically Signed On 02-18-2025 15:59:[address] M.D.
[2025-02-17 19:02] LABS: Basophils Percent Auto 0.1 % (0.2-1.2); Hematocrit 32.6 % (37.0-47.0); Hemoglobin 11.4 g/dL (12.0-15.0); Immature Granulocyte Absolute 0.06 K/mm3 (0.00-0.031); Immature Granulocyte Percent A 0.5 % (0-0.5); Lymphocytes Absolute Auto 0.42 K/mm3 (0.9-3.2); Lymphocytes Percent Auto 3.5 % (18.3-44.2); Mean Corpuscular Hemoglobin 33.6 pg (26-34); Mean Corpuscular Volume 96.2 fl (80-100); Mean Platelet Volume 10.7 fl (7.4-10.4); Monocytes Absolute Auto 0.4 K/mm3 (0.1-0.6); Monocytes Percent Auto 3.5 % (2.6-8.5); Neutrophils Absolute Auto 11.3 K/mm3 (1.3-6.7); Neutrophils Percent Auto 92.4 % (45.5-73.1); Platelet Count Result 286 k/mm3 (150-375); Red Blood Count 3.39 M/mm3 (4.2-5.4); Red Cell Distribution Width 15.8 % (11.5-14.5); White Blood Count 12.2 K/mm3 (4.5-10.0)
[2025-02-17 19:20] LABS: Alanine Aminotransferase 54 U/L (6-35); Alkaline Phosphatase 70 U/L (38-126); Anion Gap 22 mmol/L (4-12); Aspartate Amino Transferase 80 U/L (14-36); Bilirubin,Total 0.8 mg/dL (0.2-1.3); Blood Urea Nitrogen 19 mg/dL (7-17); Calcium 7.9 mg/dL (8.4-10.2); Carbon Dioxide 17 mmol/L (22-30); Chloride 99 mmol/L (98-107); Estimated CRCL calculation 17 ml/min; Estimated Glomerular Filt Rate 46; Glucose 296 mg/dL (65-110); Potassium 2.8 mmol/L (3.4-5.0); Sodium 138 mmol/L (137-145)
--- OUTSIDE RECORDS SUMMARY | 2025-02-17 19:25 | XMS_ITS | Clinical Summary ---
Author Organization [facility] Address [address] [place] [address] Phone Care Team Providers Care Handle Rounder Operator Name Role Phone Unavailable Primary Care Provider [...] Overview: Dr. Benjie Krause for 5 years. [place] currently. 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 Gender Identity Not on file Sexual Orientation Not on file Occupation Industry Job Start Date Job End Date Not on file Not on file Not on file Not on file Not on file Not on file Not on file Not on file Last Filed Vital Signs Vital Sign Reading Time Taken Comments Blood Pressure 134/58 10/03/2018 8:38 AM RESOURCING CONSULTANT Pulse 68 10/03/2018 8:38 AM RESOURCING CONSULTANT Temperature - - Respiratory Rate - - Oxygen Saturation 95% 10/03/2018 8:38 AM RESOURCING CONSULTANT Inhaled Oxygen Concentration - - Weight 53.1 kg (117 lb) 10/03/2018 8:38 AM RESOURCING CONSULTANT Height 157.5 cm (5' 2 ) 10/03/2018 8:38 AM RESOURCING CONSULTANT Body Mass Index 21.4 10/03/2018 8:38 AM RESOURCING CONSULTANT Plan of Treatment Health Maintenance Due Date [...] Discontinued Insurance MEDICARE PART A [place] B [place] [id number]
--- OUTSIDE RECORDS SUMMARY | 2025-02-17 19:25 | XMS_ITS | Encounter Summary ---
Author Organization [email or web address] Address 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
--- OUTSIDE RECORDS SUMMARY | 2025-02-17 19:25 | XMS_ITS | Encounter Summary ---
Author Organization [employer] Address 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
--- OUTSIDE RECORDS SUMMARY | 2025-02-17 19:25 | XMS_ITS | Encounter Summary ---
Author Organization [employer] Address 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
--- OUTSIDE RECORDS SUMMARY | 2025-02-17 19:25 | XMS_ITS | Clinical Summary ---
Author Organization [facility] Address [address] [place] [address] Care Team Providers Care Sewer Builder Name Role Phone Unavailable Primary Care Provider [...]
--- OUTSIDE RECORDS SUMMARY | 2025-02-17 19:25 | XMS_ITS | Referral Summary ---
Author Organization [facility] Address [address] [place] [address] Care Team Providers Care Compensation And Benefits Administrator Name Role Phone No, Physician Primary Care Provider Allergies No known active allergies Medications lidocaine (LIDODERM) 5 % Place 1 patch on the skin daily Remove & discard patch within 12 hours or as directed by MD. 30 patch 12/07/2022 Active QUEtiapine (SEROquel) 25 mg tablet Take 1 tablet (25 mg total) by mouth nightly 30 tablet 12/06/2022 Active susana [id number] op-man-bor 250-40-125 mg-mg-unit tablet Take 1 tablet [...] (06/15/2020): Added automatically from request for surgery [id number] Primary osteoarthritis of knees, bilateral 05/06 Combined forms of age-related cataract of right eye 01/30/2019 Overview (01/30/2019): Added automatically from request for surgery [id number] Osteoporosis 09/21/2018 Social History Tobacco Use Types [...] on file Legal Sex Female 1:17 PM CREEL CLEANER Gender Identity Not on file Sexual Orientation Not on file Last Filed Vital Signs Vital Sign Reading Time Taken Comments Blood Pressure 133/78 01/02/2023 1:25 PM CREEL CLEANER Pulse 82 01/02/2023 1:25 PM CREEL CLEANER Temperature 36.7 C (98 F) 01/02/2023 1:25 PM CREEL CLEANER Respiratory Rate 18 01/02/2023 1:25 PM CREEL CLEANER Oxygen Saturation 97% 01/02/2023 1:25 PM CREEL CLEANER Inhaled Oxygen Concentration - - Weight 46.3 kg (102 lb) 09/18/2024 8:36 AM CDT Height 152.4 cm (5') 09/18/2024 8:36 AM CDT Body Mass Index 19.92 09/18/2024 8:36 AM CDT Plan of Treatment Not on file Medical Devices Implanted Type Area Packager Device Identifier Shelf Expiration Date Model / Serial / Lot [employer] Sn60wf.225 Acrysof Iq Natural Stableforce Acrysert 6mm 13mm 1 Piece Foldable - [id number] - [id number] Implanted:Qty: 1 on 02/14/2019 by Luis Hernandez MD at [facility] Lens Right: Eye [employer] [id number] 08/26/2023 SN60WF.22 5 / [id number] / 0 Description:Intraocular lens [employer] Sn60wf.220 Acrysof Iq Natural Stableforce Acrysert 6mm 13mm 1 Piece Foldable - [id number] - [id number] Implanted:Qty: 1 on 06/25/2020 by Luis Hernandez MD at [facility] Lens Left: Eye [employer] [id number] 10/26/2024 SN60WF.22 0 / [id number] / 0 Procedures Procedure Name Priority Date/Time Associated Diagnosis Comments DEXA AXIAL SKELETON BONE DENSITY 1 OR MORE SITES Schedule Routine, Read Routine (OP Routine) 10/18/2021 8:09 AM CREEL CLEANER Age-related osteoporosis without current pathological fracture from Last 3 Months or Most Recently Relevant to Health Maintenance Results * Dexa Axial Skeleton Bone Density 1 or 2 Site (10/18/2021 8:09 AM CREEL CLEANER) Anatomical Region Laterality Modality Body N/A Radiographic Juliet ging Narrative 10/26/2021 8:44 AM CREEL CLEANER Patient Name: Elena Goncalves Date of : 1945 Date of scan: 10/18/2021 Bone mineral density was performed on a [employer] Discovery Densitometer. Based on machine cross-calibration and [...] by the International Society of Clinical Densitometry. [id number] Alicja Waldrop MD IMG DXA PROCEDURES Final Re sult from Last 3 Months or Most Recently Relevant to Health Maintenance [facility] REF [facility] MEDICARE Address: [address] [address] [place] [address] [employer] MEDICARE ADVANTAGE [facility] MEDICARE Address: [address] [address] [place] [phone] [employer]HC MEDICARE ADVANTAGE [facility] MEDICARE Address: [address] [place], [place] [phone] [facility] MEDICARE ADVANTAGE Advance Directives For more information, please contact: [phone] * LIMITED - No CPR (Latest Code [...] 11:48 AM 02/14/2019 5:13 PM Care Teams Compensation And Benefits Administrator Relationship Specialty Start Date End Date No, Physician PCP - General 09/12/24
--- OUTSIDE RECORDS SUMMARY | 2025-02-17 19:25 | XMS_ITS | Encounter Summary ---
Author Organization [facility] Address [address] [place] [address] Care Team Providers Care Therapy Technician Name Role Phone Sal Pearson MD Primary Care Provider Anastacio Lopez INVESTIGATIONS CHIEF Primary Care Provider [phone] No, Physician Primary Care Provider [phone] Encounter Details Date Type Department Care Team (Late st Contact Info) Description 03/26/2021 Telephone [facility] [address] [place] [phone] Nicola Acosta, RT Social History Tobacco Use Types Packs/Day Years Used Date Smoking Tobacco: Never Smokeless Tobacco: Never Alcohol Use Standard Drinks/Week Comments No 0 (1 standard drink = 0.6 oz pur e alcohol) Comments No Sex and Gender Information Value Date Recorded Sex Assigned at Not on file Legal Sex Female 1:17 PM TAP PULLER Gender Identity Not on file Sexual Orientation Not on file documented as of this encounter Plan of Treatment Not on file documented as of this encounter Visit Diagnoses Not on filedocumented in this encounter Care Teams Therapy Technician Relationship Specialty Start Date End Date Sal Pearson MD [address] [employer] [facility] [address] [place] [address] PCP - General 06/25/20 12/21/21 Anastacio Lopez NP [address] [address] PCP - General Internal Medicine 12/22/21 09/11/24 No, Physician PCP - General 09/12/24 documented as of this encounter
--- OUTSIDE RECORDS SUMMARY | 2025-02-17 19:25 | XMS_ITS | Encounter Summary ---
Author Organization [facility] Address [address] [place] [address] Phone Care Team Providers Care Dinkey Press Operator Name Role Phone Anastacio Lopez NP Primary Care Provider [phone] No, Physician Primary Care Provider [phone] Encounter Details Date Type Department Care Team (Late st Contact Info) Description 10/18/2022 Treatment [facility] 10 [facility] Medical Office Building [address] [place] [address] Jaylin Mojica DNP 10 [facility] [address] [place] [address] Age-related osteoporosis without current pathological fracture (Primary Dx) Social History Tobacco Use Types Packs/Day Years Used Date Smoking Tobacco: Never Smokeless Tobacco: Never Alcohol Use Standard Drinks/Week Comments No 0 (1 standard drink = 0.6 oz pur e alcohol) Comments No Sex and Gender Information Value Date Recorded Sex Assigned at Not on file Legal Sex Female 1:17 PM PASSENGER SERVICE AGENT Gender Identity Not on file Sexual Orientation Not on file documented as of this encounter Plan of Treatment Not on file documented as of this encounter Visit Diagnoses Diagnosis Age-related osteoporosis without current pathological fracture- Primary documented in this encounter Care Teams Dinkey Press Operator Relationship Specialty Start Date End Date Anastacio Lopez NP PCP - General Internal Medicine 12/22/21 09/11/24 No, Physician PCP - General 09/12/24 documented as of this encounter
--- OUTSIDE RECORDS SUMMARY | 2025-02-17 19:25 | XMS_ITS | Encounter Summary ---
Author Organization [employer] Address 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
--- OUTSIDE RECORDS SUMMARY | 2025-02-17 19:25 | XMS_ITS | Encounter Summary ---
Author Organization [employer] Address [address] [place] [address] Care Team Providers Care Swing Ride Operator Name Role Phone Leann Kennedy MD Primary Care Provider [phone] Encounter Details Date Type Department Care Team (Latest Contact Info) Description 07/24/2002 Outpatient Historical HIS [facility] TETE Madrigal, Fidel Rosa MD NO ADDRESS ON FILE CALCULUS OF URETER (Primary Dx) Social History Tobacco Use Types Packs/Day Years Used Date Smoking Tobacco: Never Assessed Comments Unknown Sex and Gender Information Value Date Recorded Sex Assigned at Not on file Legal Sex Female 5:24 AM DEPUTY DIRECTOR OF NURSING Gender Identity Not on file Sexual Orientation Not on file documented as of this encounter Plan of Treatment Not on file documented as of this encounter Visit Diagnoses Diagnosis Calculus of ureter- Primary documented in this encounter Care Teams Swing Ride Operator Relationship Specialty [place] [address] [facility] [address] [place] [phone] PCP - General Family Practice 10/03/18 10/05/20 documented as of this encounter
--- OUTSIDE RECORDS SUMMARY | 2025-02-17 19:25 | XMS_ITS | Encounter Summary ---
Author Organization [employer] Address [address] [place] [address] Care Team Providers Care Meat Processing Center Manager Name Role Phone Leann Kennedy MD Primary Care Provider [phone] Encounter Details Date Type Department Care Team (Late st Contact Info) Description 05/10/2002 [facility] CALCULUS OF KIDNEY (Primary Dx) Social History Tobacco Use Types Packs/Day Years Used Date Smoking Tobacco: Never Assessed Comments Unknown Sex and Gender Information Value Date Recorded Sex Assigned at Not on file Legal Sex Female 5:24 AM SAP SOLUTION MANAGER CONSULTANT Gender Identity Not on file Sexual Orientation Not on file documented as of this encounter Plan of Treatment Not on file documented as of this encounter Visit Diagnoses Diagnosis Calculus of kidney- Primary documented in this encounter Care Teams Meat Processing Center Manager Relationship Specialty [place] [address] [facility] [address] [place] [phone] PCP - General Family Practice 10/03/18 10/05/20 documented as of this encounter
--- OUTSIDE RECORDS SUMMARY | 2025-02-17 19:25 | XMS_ITS | Encounter Summary ---
Author Organization [employer] Address 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
--- OUTSIDE RECORDS SUMMARY | 2025-02-17 19:25 | XMS_ITS | Clinical Summary ---
Author Organization [facility] Address [address] [place] [address] Care Team Providers Care Seismograph Computer Name Role Phone Alicja Waldrop MD Unavailable [phone] Saul Castrejon MD Unavailable [phone] Source Comments [facility],non-owned Affiliates and Associated Physician Practices is amultiple site organization consisting of ambulatory clinics and hospital sitesin [place], [place], [place] and [place]. This disclosure is being madepursuant to the Care Everywhere program and may not contain all information available regarding this patient. Last updated 18.[facility] [employer] Allergies No known active allergies Medications * [...] on patient's age to complete this topic Care Teams Seismograph Computer Relationship Specialty Start Date End Date Alicja Waldrop MD [address] [place] [address] Internal Medicine 03/07/16 Saul Castrejon MD [address] [address] Internal Medicine 03/07/16
--- OUTSIDE RECORDS SUMMARY | 2025-02-17 19:25 | XMS_ITS | Encounter Summary ---
Author Organization [employer] Address 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
--- OUTSIDE RECORDS SUMMARY | 2025-02-17 19:25 | XMS_ITS | Encounter Summary ---
Author Organization [employer] Address [address] [place] [address] Care Team Providers Care Food Services Coordinator Name Role Phone Leann Kennedy MD Primary Care Provider [phone] Encounter Details Date Type Department Care Team (Latest Contact Info) Description 09/18/2002 Outpatient Historical HIS 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
--- OUTSIDE RECORDS SUMMARY | 2025-02-17 19:25 | XMS_ITS | Encounter Summary ---
Author Organization [employer] Address [address] [place] [address] Care Team Providers Care Shop Teacher Name Role Phone Leann Kennedy MD Primary Care Provider [phone] Encounter Details Date Type Department Care Team (Late st Contact Info) Description 07/17/2002 Outpatient Historical [facility] Support Serv. ([facility]) [address] [place] [address] Larry De La O MD NO ADDRESS ON FILE Social History Tobacco Use Types Packs/Day Years Used Date Smoking Tobacco: Never Assessed Comments Unknown Sex and Gender Information Value Date Recorded Sex Assigned at Not on file Legal Sex Female 5:24 AM CREDIT INTERN Gender Identity Not on file Sexual Orientation Not on file documented as of this encounter Plan of Treatment Not on file documented as of this encounter Visit Diagnoses Not on filedocumented in this encounter Care Teams Shop Teacher Relationship Specialty [place] [address] [phone] PCP - General Family Practice 10/03/18 10/05/20 documented as of this encounter
--- OUTSIDE RECORDS SUMMARY | 2025-02-17 19:25 | XMS_ITS | Encounter Summary ---
Author Organization [email or web address] Address [address] [place] [address] Care Team Providers Care Cloth Spreader Screen Printing Name Role Phone Leann Kennedy MD Primary Care Provider [phone] Encounter Details Date Type Department Care Team [...] on file Legal Sex Female 5:24 AM CAFETERIA TABLE ATTENDANT Gender Identity Not on file Sexual Orientation Not on file documented as of this encounter Plan of Treatment Not on file documented as of this encounter Visit Diagnoses Diagnosis Calculus of kidney- Primary documented in this encounter Care Teams Cloth Spreader Screen Printing Relationship Specialty [place] [address] [facility] [address] [place] [phone] PCP - General Family Practice 10/03/18 10/05/20 documented as of this encounter
--- OUTSIDE RECORDS SUMMARY | 2025-02-17 19:25 | XMS_ITS | Clinical Summary ---
Author Organization [facility] Address [address] [place] [address] Care Team Providers Care Analytical Sciences Director Name Role Phone No, Physician Primary Care Provider [phone] Allergies No known active allergies Medications lidocaine (LIDODERM) 5 % Place 1 patch on the skin daily Remove & discard patch within 12 hours or as directed by MD. 30 patch 12/07/2022 Active QUEtiapine (SEROquel) 25 mg tablet Take 1 tablet (25 mg total) by mouth nightly 30 tablet 12/06/2022 Active susana mjw-[id number]-Zn-c op-man-bor 250-40-125 mg-mg-unit tablet Take 1 tablet [...] (06/15/2020): Added automatically from request for surgery [id number] Primary osteoarthritis of knees, bilateral 05/06 Combined forms of age-related cataract of right eye 01/30/2019 Overview (01/30/2019): Added automatically from request for surgery [id number] Osteoporosis 09/21/2018 Surgical History Surgery Date Site/Laterality [...] on file Legal Sex Female 1:17 PM MACHINE TOOL TECHNOLOGY INSTRUCTOR Gender Identity Not on file Sexual Orientation Not on file Obstetrics History Last Filed Vital Signs Vital Sign Reading Time Taken Comments Blood Pressure 133/78 01/02/2023 1:25 PM MACHINE TOOL TECHNOLOGY INSTRUCTOR Pulse 82 01/02/2023 1:25 PM MACHINE TOOL TECHNOLOGY INSTRUCTOR Temperature 36.7 C (98 F) 01/02/2023 1:25 PM MACHINE TOOL TECHNOLOGY INSTRUCTOR Respiratory Rate 18 01/02/2023 1:25 PM MACHINE TOOL TECHNOLOGY INSTRUCTOR Oxygen Saturation 97% 01/02/2023 1:25 PM MACHINE TOOL TECHNOLOGY INSTRUCTOR Inhaled Oxygen Concentration - - Weight 46.3 [...] history exists Medical Devices Implanted Type Area Customer Service Engineer Device Identifier Shelf Expiration Date Model / Serial / Lot [employer] Sn60wf.225 Acrysof Iq Natural Stableforce Acrysert 6mm 13mm 1 Piece Foldable - [id number] - [id number] Implanted:Qty: 1 on 02/14/2019 by Luis Hernandez MD at [facility] Lens Right: Eye [employer] [id number] 08/26/2023 SN60WF.22 5 / [id number] / 0 Description:Intraocular lens [employer] Sn60wf.220 Acrysof Iq Natural Stableforce Acrysert 6mm 13mm 1 Piece Foldable - [id number] - [id number] Implanted:Qty: 1 on 06/25/2020 by Luis Hernandez MD at [facility] Lens Left: Eye [employer] [id number] 10/26/2024 SN60WF.22 0 / [id number] / 0 Procedures Procedure Name Priority Date/Time Associated Diagnosis Comments DEXA AXIAL SKELETON BONE DENSITY 1 OR MORE SITES Schedule Routine, Read Routine (OP Routine) 10/18/2021 8:09 AM MACHINE TOOL TECHNOLOGY INSTRUCTOR Age-related osteoporosis without current pathological fracture from Last 3 Months or Most Recently Relevant to Health Maintenance Results * Dexa Axial Skeleton Bone Density 1 or 2 Site (10/18/2021 8:09 AM MACHINE TOOL TECHNOLOGY INSTRUCTOR) Anatomical Region Laterality Modality Body N/A Radiographic Juliet ging Narrative 10/26/2021 8:44 AM MACHINE TOOL TECHNOLOGY INSTRUCTOR Patient Name: Elena Goncalves Date of : 1945 Date of scan: 10/18/2021 Bone mineral density was performed on a [employer] Discovery Densitometer. Based on machine cross-calibration and [...] by the International Society of Clinical Densitometry. [id number] Alicja Waldrop MD IMG DXA PROCEDURES Final Re sult from Last 3 Months or Most Recently Relevant to Health Maintenance [facility] UHC MEDICARE ADVANTAGE UHC MEDICARE ADVANTAGE [facility] , [address] [place] [address] Advance Directives For more information, please contact: [phone] * LIMITED - No CPR (Latest Code [...] 11:48 AM 02/14/2019 5:13 PM Care Teams Analytical Sciences Director Relationship Specialty Start Date End Date No, Physician PCP - General 09/12/24
--- OUTSIDE RECORDS SUMMARY | 2025-02-17 19:25 | XMS_ITS | Encounter Summary ---
Author Organization [employer] [facility] Address 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
--- OUTSIDE RECORDS SUMMARY | 2025-02-17 19:25 | XMS_ITS | Encounter Summary ---
Author Organization [employer] Address 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
--- OUTSIDE RECORDS SUMMARY | 2025-02-17 19:25 | XMS_ITS | Encounter Summary ---
Author Organization [facility] Healthcare Address [address] [place] [address] Care Team Providers Care Library Technician Name Role Phone Sal Pearson MD Primary Care Provider Anastacio Lopez NP Primary Care Provider [phone] No, Physician Primary Care Provider [phone] Encounter Details Date Type Department Care Team (Late st Contact Info) Description 07/05/2021 Telephone [facility] [address] [place] [phone] [place], [place] Social History Tobacco Use Types Packs/Day Years Used Date Smoking Tobacco: Never Smokeless Tobacco: Never Alcohol Use Standard Drinks/Week Comments No 0 (1 standard drink = 0.6 oz pur e alcohol) Comments No Sex and Gender Information Value Date Recorded Sex Assigned at Not on file Legal Sex Female 1:17 PM PHOTOGRAPHY COLORIST Gender Identity Not on file Sexual Orientation Not on file documented as of this encounter Plan of Treatment Not on file documented as of this encounter Visit Diagnoses Not on filedocumented in this encounter Care Teams Library Technician Relationship Specialty Start Date End Date Sal Pearson MD [address] [employer] [facility] [address] [place] [address] PCP - General 06/25/20 12/21/21 Anastacio Lopez NP [address] [address] PCP - General Internal Medicine 12/22/21 09/11/24 No, Physician PCP - General 09/12/24 documented as of this encounter
--- OUTSIDE RECORDS SUMMARY | 2025-02-17 19:25 | XMS_ITS | Encounter Summary ---
Author Organization [employer] Address [address] [place] [address] Care Team Providers Care Conventions Assistant Name Role Phone Leann Kennedy MD Primary Care Provider [phone] Encounter Details Date Type Department Care Team (Latest Contact Info) Description 08/07/2002 Outpatient Historical HIS [facility] TETE Madrigal, Fidel Rosa MD NO ADDRESS ON FILE CALCULUS OF URETER (Primary Dx) Social History Tobacco Use Types Packs/Day Years Used Date Smoking Tobacco: Never Assessed Comments Unknown Sex and Gender Information Value Date Recorded Sex Assigned at Not on file Legal Sex Female 5:24 AM INBOUND CUSTOMER SERVICE AGENT Gender Identity Not on file Sexual Orientation Not on file documented as of this encounter Plan of Treatment Not on file documented as of this encounter Visit Diagnoses Diagnosis Calculus of ureter- Primary documented in this encounter Care Teams Conventions Assistant Relationship Specialty [place] [address] [facility] [address] [place] [phone] PCP - General Family Practice 10/03/18 10/05/20 documented as of this encounter
--- OUTSIDE RECORDS SUMMARY | 2025-02-17 19:25 | XMS_ITS | Encounter Summary ---
Author Organization [employer] Address 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
--- OUTSIDE RECORDS SUMMARY | 2025-02-17 19:25 | XMS_ITS | Encounter Summary ---
Author Organization [facility] Healthcare Address [address] [place] [address] Care Team Providers Care Arts Therapist Name Role Phone Sal Pearson MD Primary Care Provider Anastacio Lopez NP Primary Care Provider [phone] No, Physician Primary Care Provider [phone] Encounter Details Date Type Department Care Team (Late st Contact Info) Description 10/28/2021 Telephone [facility] [address] [place] [phone] Paulino Barbosa, [place] Social History Tobacco Use Types Packs/Day Years Used Date Smoking Tobacco: Never Smokeless Tobacco: Never Alcohol Use Standard Drinks/Week Comments No 0 (1 standard drink = 0.6 oz pur e alcohol) Comments No Sex and Gender Information Value Date Recorded Sex Assigned at Not on file Legal Sex Female 1:17 PM VENTILATING EQUIPMENT INSTALLER Gender Identity Not on file Sexual Orientation Not on file documented as of this encounter Plan of Treatment Not on file documented as of this encounter Visit Diagnoses Not on filedocumented in this encounter Care Teams Arts Therapist Relationship Specialty Start Date End Date Sal Pearson MD [address] [address] PCP - General 06/25/20 12/21/21 [place] [address] [place] [address] PCP - General Internal Medicine 12/22/21 09/11/24 No, Physician PCP - General 09/12/24 documented as of this encounter
--- OUTSIDE RECORDS SUMMARY | 2025-02-17 19:25 | XMS_ITS | Encounter Summary ---
Author Organization [employer] Address [address] [place] [address] Care Team Providers Care Boring Inspector Name Role Phone Leann Kennedy MD Primary Care Provider [phone] Encounter Details Date Type Department Care Team (Late st Contact Info) Description 06/14/2002 Outpatient Historical [facility] Support [facility]. ([facility]) [address] [place] [id number] Larry De La O MD NO ADDRESS ON FILE Social History Tobacco Use Types Packs/Day Years Used Date Smoking Tobacco: Never Assessed Comments Unknown Sex and Gender Information Value Date Recorded Sex Assigned at Not on file Legal Sex Female 5:24 AM OPTICAL INSTRUMENT INSPECTOR Gender Identity Not on file Sexual Orientation Not on file documented as of this encounter Plan of Treatment Not on file documented as of this encounter Visit Diagnoses Not on filedocumented in this encounter Care Teams Boring Inspector Relationship Specialty [place] [id number] [phone] PCP - General Family Practice 10/03/18 10/05/20 documented as of this encounter
--- OUTSIDE RECORDS SUMMARY | 2025-02-17 19:25 | XMS_ITS | Encounter Summary ---
Author Organization [employer] Address [address] [place] [address] Care Team Providers Care Cab Station Attendant Name Role Phone Leann Kennedy MD Primary Care Provider [phone] Encounter Details Date Type Department Care Team [...] on file Legal Sex Female 5:24 AM AUTOMOTIVE ASSEMBLER Gender Identity Not on file Sexual Orientation Not on file documented as of this encounter Plan of Treatment Not on file documented as of this encounter Visit Diagnoses Diagnosis Calculus of kidney- Primary documented in this encounter Care Teams Cab Station Attendant Relationship Specialty [place] [address] [facility] [address] [place] [id number] PCP - General Family Practice 10/03/18 10/05/20 documented as of this encounter
[2025-02-17 19:32] LABS: Add Urine Microscopic? YES; Appearance Urine Clear (Clear); Bacteria Urine None Seen /hpf; Bilirubin Urine Negative (Negative); Blood Urine 2+ (Negative); Color Urine Dark Yellow (Yellow); Glucose Urine UA 1+ mg/dL (Negative); Hyaline Casts Urine Present /lpf; Ketones Urine 3+ mg/dL (Negative); Leukocyte Esterase Ur Trace LEU/UL (Negative); Nitrate Urine Negative (Negative); Protein Urine 2+ mg/dL (Negative); Specific Grav Ur 1.016 (1.001-1.035); Squamous Epithelial Cell Urine None Seen /hpf (Few); WBC Urine 0-5 /hpf (0-3)
[2025-02-17 19:46] VITALS: BP 111/63; PULSE 106; RESP 17
[2025-02-17] MEDS: SODIUM CHLORIDE 0.9% IV 1,000 ML 400 ML (19:53)
[2025-02-17] MEDS: POTASSIUM CHLORIDE 20 MEQ PACKET (FOR LIQUID) 40 MEQ PO (19:54)
[2025-02-17] MEDS: KCL 20 MEQ/SW 100 ML 100 ML 50 MEQ IVPB (19:55)
[2025-02-17 20:31] VITALS: BP 99/57; PULSE 102; RESP 14
--- NOTE | 2025-02-17 20:47 | ED.GENADULT ---
HPI - General Adult General Chief complaint: Weakness Stated complaint: weakness Time Seen by Provider: 02/17/25 18:51 History of Present Illness HPI narrative: 79-year-old female presents emergency department for evaluation after having been found on the ground tonight during a welfare check. Patient does have a wound to the left side her head but states that she did not have a fall today. She reports that she had a fall a few days ago. Patient was evaluated emergency department on 02/14 after having some fall and some confusion. At that time patient was offered admission but declined. At time of initial evaluation patient is unable to drink from a straw. Patient is very cachectic appearing and malnourished. Patient states that she lives at home with her 99-year-old mother Pharmacy was called and patient has only filled her Percocet recently Related Data Home Medications ?Medication ?Instructions ?Recorded ?Confirmed ?Last Taken ?Type oxycodone-acetaminophen 10 mg-325 1 - 2 tablet PO Q6H PRN pain 02/18/25 02/18/25 Unknown History mg tablet Allergies Allergy/AdvReac Type Severity Reaction Status Date / Time No Known Allergies Allergy Verified 02/17/25 18:24 Review of Systems Review of Systems: All systems reviewed & are unremarkable except as noted in HPI and below PMFSH Past Medical History Medical History (Updated 02/18/25 @ 04:36 by Yuki Lacey DO) Osteoporosis Chronic pain disorder Emphysema of lung Noted on imaging Severe protein-calorie malnutrition Dementia Surgical History Surgical History (Updated 02/18/25 @ 04:36 by Yuki Lacey DO) History of thyroid surgery Family History Family History (Updated 02/18/25 @ 04:37 by Yuki Lacey DO) Other Unknown family medical history Social History Social History (Updated 02/18/25 @ 04:46 by Yuki Lacey DO) Social History: Code status: Full code (the patient does not have advanced directives in place) Patient has a son and a niece. Nursing staff to talk to the patient's son and to the patient's niece. Smoking status: Never smoker Alcohol intake: never Substance use: current Substance use type: prescription drug Other substance usage details: Oxycodone 180 tablets per month Spiritual care concerns: No Exam Narrative: APPEARANCE: Very cachectic and malnourished appearing HEAD: normocephalic, abrasion to left forehead. EYES: PERRLA/EOMI, conjunctivae clear. NOSE: Normal no drainage EARS:TMS clear with good light reflex. THROAT: Pharynx clear, no exudate. NECK: Supple. No adenopathy, no masses. RESPIRATORY: Airway patent, respirations nonlabored. Clear to auscultation bilaterally, no rales, rhonchi, wheezing. CARDIOVASCULAR: Regular rate and rhythm without murmurs rubs or gallops. ABDOMINAL: Soft, nontender, nondistended, normal bowel sounds MUSCULOSKELETAL: Moves all extremities. Strength/ROM intact, No edema, No calf tenderness. NEURO: Alert. Cranial nerves II through XII intact. Good gait. Good coordination SKIN: Warm, dry. Normal Color Course Vital Signs Vital signs: Vital Signs Pulse Rate 105 H 02/17/25 18:15 Respiratory Rate 20 02/17/25 18:15 Blood Pressure 115/72 02/17/25 18:15 Temperature 96.9 F L 02/18/25 14:00 Pulse Rate 75 02/18/25 16:01 Respiratory Rate 16 02/18/25 14:00 Blood Pressure 113/61 02/18/25 14:00 Pulse Oximetry 95 02/18/25 14:00 Oxygen Delivery Room Air 02/18/25 10:15 Medical Decision Making [facility] Narrative Medical decision making narrative: 79-year-old female present to the emergency department for evaluation after being found on the ground by a neighbor. Patient stated that she lives with her mother. Patient's mother is in fact alive but does live in [facility]. Patient is very cachectic and malnourished appearing. Patient is afebrile but does have a leukocytosis of 12.2 and hemoglobin 11.4. Platelets are 286. Patient does have a hyperkalemia with potassium of 2.8. Temp did replacement with p.o. and IV but patient is unable to drink out of a straw, patient is unsure how long she has been able to drink. Patient does have a creatinine of 1.14 which is higher than her measurement of 0.5 to states few days ago. Patient was treated with a L of LR. False and Mag are within normal limits. Patient does have a mildly low calcium at 7.9. Patient's T bili is within normal limits but mild elevation of AST ALT. Patient's CK is 398. UA is negative for acute infection. Head CT was negative. Patient requires admission for severe malnutrition and failed thrive along with confusion. Patient is willing to stay overnight. Vital Signs Vital Signs: Vital Signs Pulse Rate 105 H 02/17/25 18:15 Respiratory Rate 20 02/17/25 18:15 Blood Pressure 115/72 02/17/25 18:15 Temperature 96.9 F L 02/18/25 14:00 Pulse Rate 75 02/18/25 16:01 Respiratory Rate 16 02/18/25 14:00 Blood Pressure 113/61 02/18/25 14:00 Pulse Oximetry 95 02/18/25 14:00 Oxygen Delivery Room Air 02/18/25 10:15 Lab Data 02/18/25 03:57 02/18/25 03:57 Labs: Lab Results 02/17/25 02/17/25 02/17/25 Range/Units 18:23 18:56 18:57 WBC 12.2 H (4.5-10.0) K/mm3 RBC 3.39 L (4.2-5.4) M/mm3 Hgb 11.4 L (12.0-15.0) g/dL Hct 32.6 L (37.0-47.0) % MCV 96.2 (80-100) fl MCH 33.6 (26-34) pg MCHC 35.0 (32-36) g/dl RDW 15.8 H (11.5-14.5) % Plt Count 286 (150-375) k/mm3 MPV 10.7 H (7.4-10.4) fl Immature Gran % (Auto) 0.5 (0-0.5) % Neut % (Auto) 92.4 H (45.5-73.1) % Lymph % (Auto) 3.5 L (18.3-44.2) % [place] % (Auto) 3.5 (2.6-8.5) % Eos % (Auto) 0.0 (0-4.4) % Baso % (Auto) 0.1 L (0.2-1.2) % Lymph # (Auto) 0.42 L (0.9-3.2) K/mm3 [place] # (Auto) 0.4 (0.1-0.6) K/mm3 Eos # (Auto) 0.0 (0-0.3) K/mm3 Baso # (Auto) 0.0 (0.0-0.1) K/mm3 Abs Immat Gran (auto) 0.06 H (0.00-0.031) K/mm3 Absolute Neuts (auto) 11.3 H (1.3-6.7) K/mm3 Absolute Nucleated RBC 0.000 (0.0-0.012) K/mm3 Nucleated RBC % 0.0 (0.0-0.2) % Sodium 138 (137-145) mmol/L Potassium 2.8 L* (3.4-5.0) mmol/L Chloride 99 (98-107) mmol/L Carbon Dioxide 17 L (22-30) mmol/L Anion Gap 22 H (4-12) mmol/L BUN 19 H (7-17) mg/dL Creatinine 1.14 H (0.7-1.0) mg/dL Estim Creat Clear Calc 17 ml/min Estimated GFR 46 L (59 - ) Glucose 296 H (65-110) mg/dL POC Capillary Glucose 84 (65-105) mg/dl Calcium 7.9 L (8.4-10.2) mg/dL Phosphorus (2.5-4.5) mg/dL Magnesium (1.6-2.3) mg/dL Total Bilirubin 0.8 (0.2-1.3) mg/dL AST 80 H (14-36) U/L ALT 54 H (6-35) U/L Alkaline Phosphatase 70 (38-126) U/L Total Creatine Kinase (30-135) U/L Total Protein 6.0 L (6.3-8.2) g/dL Albumin 3.0 L (3.5-5.1) g/dL TSH (Reflex) (0.465-4.68) uIU/mL Urine Color Dark yellow (Yellow) Urine Appearance Clear (Clear) Urine pH 6.0 (5.0-9.0) Ur Specific [place] 1.016 (1.001-1.035) Urine Protein 2+ H (Negative) mg/dL Urine Glucose (UA) 1+ H (Negative) mg/dL Urine Ketones 3+ H (Negative) mg/dL Ur Blood (Man) 2+ H (Negative) Urine Nitrate Negative (Negative) Urine Bilirubin Negative (Negative) Urine Urobilinogen 1.0 (<2.0) mg/dL Leukocyte Esterase Rfl Trace H (Negative) GASTON/UL Urine RBC 11-20 H (0-2) /hpf Urine WBC 0-5 (0-3) /hpf Ur Squamous Epith Cells None seen (Few) /hpf Urine Bacteria None seen /hpf Urine Casts 3-5 Hyaline Casts Present (None) /lpf 02/17/25 02/17/25 Range/Units 21:31 22:42 WBC (4.5-10.0) K/mm3 RBC (4.2-5.4) M/mm3 Hgb (12.0-15.0) g/dL Hct (37.0-47.0) % MCV (80-100) fl MCH (26-34) pg MCHC (32-36) g/dl RDW (11.5-14.5) % Plt Count (150-375) k/mm3 MPV (7.4-10.4) fl Immature Gran % (Auto) (0-0.5) % Neut % (Auto) (45.5-73.1) % Lymph % (Auto) (18.3-44.2) % [place] % (Auto) (2.6-8.5) % Eos % (Auto) (0-4.4) % Baso % (Auto) (0.2-1.2) % Lymph # (Auto) (0.9-3.2) K/mm3 [place] # (Auto) (0.1-0.6) K/mm3 Eos # (Auto) (0-0.3) K/mm3 Baso # (Auto) (0.0-0.1) K/mm3 Abs Immat Gran (auto) (0.00-0.031) K/mm3 Absolute Neuts (auto) (1.3-6.7) K/mm3 Absolute Nucleated RBC (0.0-0.012) K/mm3 Nucleated RBC % (0.0-0.2) % Sodium (137-145) mmol/L Potassium (3.4-5.0) mmol/L Chloride (98-107) mmol/L Carbon Dioxide (22-30) mmol/L Anion Gap (4-12) mmol/L BUN (7-17) mg/dL Creatinine (0.7-1.0) mg/dL Estim Creat Clear Calc ml/min Estimated GFR (59 - ) Glucose (65-110) mg/dL POC Capillary Glucose 144 H (65-105) mg/dl Calcium (8.4-10.2) mg/dL Phosphorus 2.9 (2.5-4.5) mg/dL Magnesium 1.8 (1.6-2.3) mg/dL Total Bilirubin (0.2-1.3) mg/dL AST (14-36) U/L ALT (6-35) U/L Alkaline Phosphatase (38-126) U/L Total Creatine Kinase 398 H (30-135) U/L Total Protein (6.3-8.2) g/dL Albumin (3.5-5.1) g/dL TSH (Reflex) 0.784 (0.465-4.68) uIU/mL Urine Color (Yellow) Urine Appearance (Clear) Urine pH (5.0-9.0) Ur Specific Cle[place] (1.001-1.035) Urine Protein (Negative) mg/dL Urine Glucose (UA) (Negative) mg/dL Urine Ketones (Negative) mg/dL Ur Blood (Man) (Negative) Urine Nitrate (Negative) Urine Bilirubin (Negative) Urine Urobilinogen (<2.0) mg/dL Leukocyte Esterase Rfl (Negative) GASTON/UL Urine RBC (0-2) /hpf Urine WBC (0-3) /hpf Ur Squamous Epith Cells (Few) /hpf Urine Bacteria /hpf Urine Casts Hyaline Casts (None) /lpf Discharge Plan Discharge Clinical Impression: Adult failure to thrive, Acute hypokalemia, Severe malnutrition, Hypoglycemia, MIRNA (acute kidney injury) Patient Disposition: Still a Patient Condition: Serious
--- NOTE | 2025-02-17 20:48 | PC.NURSE ---
Frida is an old sikhism friend. Frida verbalized not having seen Elena in 10+ years.
--- NOTE | 2025-02-17 20:59 | PC.NURSE ---
This rn spoke with [place] [employer] [phone].. Wellness check requested for a potential mother living in the same residence. Officer will return a phone call with an update. Last known mother was living with pt in 2003.
--- NOTE | 2025-02-17 21:07 | PC.NURSE ---
pt has [facility] pharmacy medication labels from november with her in the er. This rn used those labels to verify that in 2023 there was a mother named boni arenas. This rn attempted to contact the store that medications were received from however it was closed.
--- NOTE | 2025-02-17 21:12 | PC.NURSE ---
Per [facility] Percocet last picked up December 2024. [facility] also verified that they are still filling medications for Mother Name Sweetie Fox. 2 abx Last filled January 2025.
--- NOTE | 2025-02-17 21:26 | PC.NURSE ---
This RN spoke with Elisha Charlesdom [phone] Ary verified that Elena's mother is alive and well in [facility] assisted living facility in [facility] and that she was with her yesterday. Ary also verified that Elena has Dementia and does not remember anything after it happens. She may be able to give a year, month and president today however in the morning she will not even remember coming to the hospital via ambulance at all. Contact information given to Registration to be updated with Niece and Son. RN attempted to reach out to [facility] to verrrify mother Sweetie is actually alive and they are on voicemail system until 8am.
[2025-02-17 21:54] LABS: Creatine Kinase 398 U/L (30-135)
[2025-02-17 21:55] LABS: Magnesium 1.8 mg/dL (1.6-2.3); Phosphorus 2.9 mg/dL (2.5-4.5)
[2025-02-17 22:01] VITALS: BP 98/55; PULSE 87; RESP 17
[2025-02-17 22:26] LABS: Thyroid Stimulating Hormone Reflex 0.784 uIU/mL (0.465-4.68)
[2025-02-17 22:45] LABS: Glucose Point of Care 144 mg/dl (65-105)
[2025-02-17] MEDS: MAGNESIUM SULF 2 GM/WATER 50ML 2 GM/50 ML BAG IVPB (22:45)
[2025-02-17] MEDS: KCL 40 MEQ/D5 1/2NS 1,000 ML 100 ML IV CONT (23:11)
--- NOTE | 2025-02-17 23:30 | PC.NURSE ---
ns @ 400ml/hr given with potassium to decrease burning
[2025-02-17 23:46] VITALS: BP 103/60; PULSE 103; RESP 16
[2025-02-18] VITALS (16 sets, daily range): BP systolic 90–127; BP diastolic 54–97; PULSE 75–117; RESP 16–24; TEMP 36.1–37.1; O2SAT 95–98; BMI 14.8
[2025-02-18 00:07] LABS: Influenza A QL RT-PCR Negative (Negative); Influenza B QL RT-PCR Negative (Negative); RSV RNA, RT-PCR Negative (Negative); SARS-CoV-2 RNA PCR Negative (Negative)
--- NOTE | 2025-02-18 00:42 | PM.IMHP ---
H&P: HPI History of Present Illness Date/Time: 02/18/25 00:42 Chief Complaint: Mom is checked, found on floor Narrative: 79-year-old female with a past medical history of depression, dementia, chronic pain and severe protein calorie malnutrition who presented to the ER from home via EMS after wellness check found the patient on the floor. The patient's was found to be profoundly hypoglycemic with a glucose of 22. Patient received 400 mL of D10 with repeat glucose of 108 in the field. Her glucose on presentation to the ER was 88. She received additional D10 supplementation and glucoses had increased to 296. The patient had been evaluated in ER on the due to fall and confusion and had refused admission and signed out on AMA. Repeat imaging and labs were performed today which demonstrated acute kidney injury, mild rhabdomyolysis, increased transaminitis compared to labs from the . But normal bilirubin, low serum albumin and serum total protein and 3+ ketones in the urine as well as low serum bicarb, elevated anion gap and significant hypokalemia. The patient had been hypokalemic on the as well with potassium of 2.9 at that time. At the time my evaluation the patient was alert oriented person and year but it was unclear if she really she was in the hospital and she could not name the hospital. In her nursing staff had tried to reorient the patient to place just before had come the room and the patient was only oriented to name. Patient was somewhat uncooperative for evaluation. Nursing staff tells me that the patient's niece who is a nurse in our facility has been attempting to obtain power of commercial real estate attorney/guardianship for the patient due to her dementia. However, providers have continued his stay the patient can make her own decisions. The patient may be oriented at times to 2-3 but then the next day or morning will not remember anything that happened the prior day. The patient states that she lives with her 99-year-old mother. However patient's niece reports that the patient's mother has lived in assisted living for about 20 years. The patient lives at home alone. Review of Systems Review of Systems: Unable to obtain due to patient's dementia. [facility] Past Medical History Medical History (Updated 02/18/25 @ 04:36 by Yuki Lacey DO) Osteoporosis Chronic pain disorder Emphysema of lung Noted on imaging Severe protein-calorie malnutrition Dementia Surgical History Surgical History (Updated 02/18/25 @ 04:36 by Yuki Lacey DO) History of thyroid surgery Family History Family History (Updated 02/18/25 @ 04:37 by Yuki Lacey DO) Other Unknown family medical history Social History Social History (Updated 02/18/25 @ 04:46 by Yuki Lacey DO) Social History: Code status: Full code (the patient does not have advanced directives in place) Patient has a son and a niece. Nursing staff to talk to the patient's son and to the patient's niece. Smoking status: Never smoker Alcohol intake: never Substance use: current Substance use type: prescription drug Other substance usage details: Oxycodone 180 tablets per month Spiritual care concerns: No Meds Home Medications and Allergies Home Medications ?Medication ?Instructions ?Recorded ?Confirmed ?Type escitalopram oxalate 5 mg tablet 5 mg PO DAILY 02/17/25 02/17/25 History memantine 14 mg capsule 14 mg PO Q24H 02/17/25 02/17/25 History sprinkle,extended release 24hr quetiapine 25 mg tablet 25 mg PO HS 02/17/25 02/17/25 History oxycodone-acetaminophen 10 mg-325 1 - 2 tablet PO Q6H PRN pain 02/18/25 02/18/25 History mg tablet Allergies Allergy/AdvReac Type Severity Reaction Status Date / Time No Known Allergies Allergy Verified 02/17/25 18:24 Vital Signs Vital Signs - 24 hr 02/17/25 18:15 Pulse Rate 105 H Respiratory Rate 20 Blood Pressure 115/72 Exam Narrative: Weight 32 kg BMI 13.8 Const: Other: Cachectic, frail, elderly HENMT: Other: Mucous membranes are dry, temporal wasting, laceration with dry blood of the left jehovah's witness Eyes: Other: Pupils are equal and reactive, positive conjunctival pallor, no scleral icterus Neck: Other: No JVD, no lymphadenopathy, horizontal scar in the area of the thyroid cartilage Resp: Other: Clear to auscultation bilaterally, no increased work of breathing Cardio: Other: Irregularly irregular, 2+ bilateral radial pedal pulses, no murmur GI: Other: Soft, nontender, concave, positive bowel sounds : Other: Pure wick catheter present, no urine output Skin: Other: Generalized pallor, non jaundice, laceration to the left jehovah's witness slight dried blood Neuro: Other: Alert oriented to person and year, confused as to the month, cannot name the president, does not know the name of the hospital, speech is clear, repetitive questions, intact peripheral sensation Extrem: Other: Generalized muscle wasting, moves all extremities equally Psych: Other: Uncooperative, confused, poor judgment, poor insight H&P: Results Labs Labs: Laboratory Tests 02/17/25 18:57 02/17/25 18:56 02/17/25 02/17/25 02/17/25 18:23 18:56 18:57 WBC 12.2 H RBC 3.39 L Hgb 11.4 L Hct 32.6 L MCV 96.2 MCH 33.6 MCHC 35.0 RDW 15.8 H Plt Count 286 MPV 10.7 H Immature Gran % (Auto) 0.5 Neut % (Auto) 92.4 H Lymph % (Auto) 3.5 L Snyder % (Auto) 3.5 Eos % (Auto) 0.0 Baso % (Auto) 0.1 L Lymph # (Auto) 0.42 L Snyder # (Auto) 0.4 Eos # (Auto) 0.0 Baso # (Auto) 0.0 Abs Immat Gran (auto) 0.06 H Absolute Neuts (auto) 11.3 H Absolute Nucleated RBC 0.000 Nucleated RBC % 0.0 Sodium 138 Potassium 2.8 L* Chloride 99 Carbon Dioxide 17 L Anion Gap 22 H BUN 19 H Creatinine 1.14 H Estim Creat Clear Calc 17 Estimated GFR 46 L Glucose 296 H POC Capillary Glucose 84 Calcium 7.9 L Phosphorus Magnesium Total Bilirubin 0.8 AST 80 H ALT 54 H Alkaline Phosphatase 70 Total Creatine Kinase Total Protein 6.0 L Albumin 3.0 L TSH (Reflex) Urine Color Dark yellow Urine Appearance Clear Urine pH 6.0 Ur Specific Falcon 1.016 Urine Protein 2+ H Urine Glucose (UA) 1+ H Urine Ketones 3+ H Ur Blood (Man) 2+ H Urine Nitrate Negative Urine Bilirubin Negative Urine Urobilinogen 1.0 Leukocyte Esterase Rfl Trace H Urine RBC 11-20 H Urine WBC 0-5 Ur Squamous Epith Cells None seen Urine Bacteria None seen Urine Casts 3-5 Hyaline Casts Present Influenza A (RT-PCR) Influenza B (RT-PCR) RSV (RT-PCR) SARS-CoV-2 RNA (RT-PCR) 02/17/25 02/17/25 02/17/25 21:31 22:42 23:16 WBC RBC Hgb Hct MCV MCH MCHC RDW Plt Count MPV Immature Gran % (Auto) Neut % (Auto) Lymph % (Auto) Snyder % (Auto) Eos % (Auto) Baso % (Auto) Lymph # (Auto) Snyder # (Auto) Eos # (Auto) Baso # (Auto) Abs Immat Gran (auto) Absolute Neuts (auto) Absolute Nucleated RBC Nucleated RBC % Sodium Potassium Chloride Carbon Dioxide Anion Gap BUN Creatinine Estim Creat Clear Calc Estimated GFR Glucose POC Capillary Glucose 144 H Calcium Phosphorus 2.9 Magnesium 1.8 Total Bilirubin AST ALT Alkaline Phosphatase Total Creatine Kinase 398 H Total Protein Albumin TSH (Reflex) 0.784 Urine Color Urine Appearance Urine pH Ur Specific Falcon Urine Protein Urine Glucose (UA) Urine Ketones Ur Blood (Man) Urine Nitrate Urine Bilirubin Urine Urobilinogen Leukocyte Esterase Rfl Urine RBC Urine WBC Ur Squamous Epith Cells Urine Bacteria Urine Casts Hyaline Casts Influenza A (RT-PCR) Negative Influenza B (RT-PCR) Negative RSV (RT-PCR) Negative SARS-CoV-2 RNA (RT-PCR) Negative Impressions Chest X-Ray 02/17/25 19:57 IMPRESSION: No acute cardiopulmonary process. Head CT 02/17/25 21:27 IMPRESSION: No acute intracranial process. Head/Cervical Spine/Facial Bones CT 02/17/25 21:48 IMPRESSION: No acute fracture or traumatic malalignment in the cervical spine. No acute facial bone fracture. EKG: Interpretation affected by baseline artifact but appears to be AFib with a rate of 108 ventricular premature complexes and QRS complexes fitting criteria for possible LVH QTC 433. Cardiology interpretation pending All imaging and EKGs personally reviewed and interpreted. And unless stated otherwise agree with radiologic and cardiology interpretation. Assessment and Plan Assessment and plan (1) Hypoglycemia: Code(s): E16.2 - Hypoglycemia, unspecified Status: Acute (2) Severe protein-calorie malnutrition: Code(s): E43 - Unspecified severe protein-calorie malnutrition Status: Acute (3) MIRNA (acute kidney injury): Code(s): N17.9 - Acute kidney failure, unspecified Status: Acute (4) Acute hypokalemia: Code(s): E87.6 - Hypokalemia Status: Acute (5) High anion gap metabolic acidosis: Code(s): E87.29 - Other acidosis Status: Acute (6) Transaminitis: Code(s): R74.01 - Elevation of levels of liver transaminase levels Status: Acute (7) Rhabdomyolysis: Qualifiers: Rhabdomyolysis type: non-traumatic Qualified Code(s): M62.82 - Rhabdomyolysis Code(s): M62.82 - Rhabdomyolysis Status: Acute (8) Adult failure to thrive: Code(s): R62.7 - Adult failure to thrive Status: Acute (9) Dementia: Qualifiers: Dementia behavioral or psychological symptom: unspecified whether behavioral, psychotic, or mood disturbance or anxiety Dementia severity: mild Dementia type: unspecified type Qualified Code(s): F03.A0 - Unspecified dementia, mild, without behavioral disturbance, psychotic disturbance, mood disturbance, and anxiety Code(s): F03.90 - Unspecified dementia, unspecified severity, without behavioral disturbance, psychotic disturbance, mood disturbance, and anxiety Status: Acute (10) Chronic pain disorder: Code(s): G89.4 - Chronic pain syndrome Status: Acute Plan Patient presented with severe hypoglycemia likely due to severe protein calorie malnutrition and poor glucagon and fat stores. Patient likely has protein calorie malnutrition due to her degree of dementia. However patient also did have difficulty swallowing oral potassium supplements in the ER. Will request speech therapy evaluation for swallow eval. Patient does have evidence of starvation ketosis with 2+ ketones in her urine, anion gap acidosis and marked dehydration. Patient's hypoglycemia is resolved after dextrose administration. Is she received a L of isotonic fluids in the ER. Will continue IV fluid hydration with D5 half-normal saline with 40 of potassium chloride. Will check Accu-Cheks q.4 hours x3 then transition to q.6 hours and eventually a.c. HS depending on Accu-Cheks. Patient did have significant hypokalemia and magnesium that was lower limit of normal. Patient received 40 mEq of IV potassium chloride and 2 g magnesium sulfate rider. Repeat electrolyte panel has already been obtained and reviewed with normalization of potassium. The patient did have evidence of transaminitis that acutely worsen transaminitis likely due to mild rhabdomyolysis due to patient's fall and immobility. Transaminases remain elevated but her stable compared to admission values. Patient has acute kidney injury is due to rhabdomyolysis dehydration/hypovolemia. Patient still does not have any urine output beyond what was obtained via straight catheterization. Will increase fluid rate. Patient did have some mild leukocytosis but no evidence of acute infection. Possibly due to hemoconcentration. Repeat CBC demonstrated slightly improved leukocytosis and slightly decreased hemoglobin likely dilutional. Patient will be admitted to medical floor on telemetry due to electrolyte disturbances. Patient has been admitted as observation status. Quality VTE Prophylaxis VTE prophylaxis: mechanical ordered (SCDs) Hospitalist MIPS Advance Care Plan I have confirmed that the patient's Advanced Care Plan is present, code status is documented, or surrogate decision maker is listed in patient medical record.: Yes Medication Reconciliation I have utilized all available resources to obtain, update and review the patients current medications (includes all prescriptions, OTC, herbals, cannabis, and nutritional supplements).: Yes
--- NOTE | 2025-02-18 03:10 | PC.NURSE ---
vrbo dr botello bladder scan as pt has not voided our shift. BS Showed 47ml max.
[2025-02-18 04:03] LABS: Hematocrit 29.5 % (37.0-47.0); Hemoglobin 10.5 g/dL (12.0-15.0); Mean Corpuscular HGB Conc 35.6 g/dl (32-36); Mean Corpuscular Hemoglobin 33.9 pg (26-34); Mean Corpuscular Volume 95.2 fl (80-100); Mean Platelet Volume 10.7 fl (7.4-10.4); Platelet Count Result 283 k/mm3 (150-375); White Blood Count 11.7 K/mm3 (4.5-10.0)
[2025-02-18 04:19] LABS: Alanine Aminotransferase 55 U/L (6-35); Albumin Level 2.8 g/dL (3.5-5.1); Alkaline Phosphatase 66 U/L (38-126); Anion Gap 11 mmol/L (4-12); Aspartate Amino Transferase 77 U/L (14-36); Bilirubin,Total 0.7 mg/dL (0.2-1.3); Blood Urea Nitrogen 20 mg/dL (7-17); Calcium 7.7 mg/dL (8.4-10.2); Carbon Dioxide 23 mmol/L (22-30); Chloride 105 mmol/L (98-107); Creatine Kinase 396 U/L (30-135); Estimated CRCL calculation 19 ml/min; Estimated Glomerular Filt Rate 51; Glucose 123 mg/dL (65-110); Potassium 3.7 mmol/L (3.4-5.0); Sodium 139 mmol/L (137-145)
[2025-02-18] MEDS: THIAMINE 500 MG/NS 100 ML 500 MG/100 ML BAG 200 MG IVPB (05:52)
--- NOTE | 2025-02-18 10:32 | PCSTNOTE ---
Please refer to the Bedside Swallow Evaluation in the EMR. Please note, silent aspiration cannot be ruled out at bedside.
--- NOTE | 2025-02-18 11:00 | PM.IMPN ---
Progress Note: A&P Assessment and Plan (1) Hypoglycemia: Code(s): E16.2 - Hypoglycemia, unspecified Status: Acute (2) Severe protein-calorie malnutrition: Code(s): E43 - Unspecified severe protein-calorie malnutrition Status: Acute (3) MIRNA (acute kidney injury): Code(s): N17.9 - Acute kidney failure, unspecified Status: Acute (4) Acute hypokalemia: Code(s): E87.6 - Hypokalemia Status: Acute (5) High anion gap metabolic acidosis: Code(s): E87.29 - Other acidosis Status: Acute (6) Transaminitis: Code(s): R74.01 - Elevation of levels of liver transaminase levels Status: Acute (7) Rhabdomyolysis: Qualifiers: Rhabdomyolysis type: non-traumatic Qualified Code(s): M62.82 - Rhabdomyolysis Code(s): M62.82 - Rhabdomyolysis Status: Acute (8) Adult failure to thrive: Code(s): R62.7 - Adult failure to thrive Status: Acute (9) Dementia: Qualifiers: Dementia behavioral or psychological symptom: unspecified whether behavioral, psychotic, or mood disturbance or anxiety Dementia severity: mild Dementia type: unspecified type Qualified Code(s): F03.A0 - Unspecified dementia, mild, without behavioral disturbance, psychotic disturbance, mood disturbance, and anxiety Code(s): F03.90 - Unspecified dementia, unspecified severity, without behavioral disturbance, psychotic disturbance, mood disturbance, and anxiety Status: Acute (10) Chronic pain disorder: Code(s): G89.4 - Chronic pain syndrome Status: Acute Plan 79-year-old female with a past medical history of depression, dementia, chronic pain and severe protein calorie malnutrition who presented to the ER from home via EMS after wellness check found the patient on the floor. The patient's was found to be profoundly hypoglycemic with a glucose of 22. Hypoglycemia, dehydration, starvation Patient presented with severe hypoglycemia likely due to severe protein calorie malnutrition ketosis with 2+ ketones in her urine, anion gap acidosis and marked dehydration. continue IV fluid hydration with D5 half-normal saline with 40 of potassium chloride. check Accu-Cheks q.4 hours x3 then transition to q.6 hours and eventually a.c. Severe malnutrition Patient has dementia, possible due to adequate intake and difficulty swallowing request speech therapy evaluation for swallow eval. Patient does have evidence of starvation Consult dietitian Hypokalemia, hypopotassemia Replete with potassium chloride and magnesium sulfate IV Corrected so far Follow-up BMP Mild rhabdomyolysis CPK is 398 Continue IV fluid Depression Patient condition is not stable, patient seems aware to her condition. Patient requests to be discharged home, he wants leave AMA. Patient has obvious depression, and had history of suicide attempt Patient came home, had multiple falls recently. Patient cannot take care of herself. We gave her warning of risk of fall and even due to fall and severe malnutrition after leaving AMA, but she still wanted to leave AMA. We need crisis team to re-evaluate the patient when patient became medically stable Consult PT OT community mental health social worker for evaluation and assisting placement Subjective Date/time seen: 02/18/25 11:00 Interval history: I saw and examined the patient in presents of patient's nurse, patient's mother and patient's niece who is the nurse of a medical floor. Patient was obvious depressed, patient was alert, able to engage conversations. Patient states she is feeling good, patient request to be discharged back home. Patient is a frail, had multiple falls at home. Patient was living with her mother, who recently moved to assisted living. Patient denied headache, chest pain abdomen pain nausea vomiting diarrhea, patient denies feeling depressed. I am not sure patient provide reliable history. Per patient's niece report, patient had a history of a suicide attempt Exam Narrative: GENERAL: , in no acute distress. Severe malnutrition - EYES: EOMI. Anicteric. - HENT: Moist mucous membranes. - LUNGS: Clear to auscultation bilaterally, no wheezing, rhonchi, or rales. - CARDIOVASCULAR: Regular rate and rhythm. No murmur. No JVD. Tachycardia - ABDOMEN: Soft, non-tender and non-distended. No palpable masses. - EXTREMITIES: No edema. Peripheral pulses 2+. Non-tender. - NEUROLOGIC: No focal neurological deficits. CN II-XII grossly intact. - PSYCHIATRIC: Awake, Alert and not oriented to time and place. Depressed, anxious mood and affect. - SKIN: No rashes or lesions. Warm. - LYMPH: No cervical lymphadenopathy. Objective Data Vital Signs Vital Signs: Vital Signs - 24 hr 02/17/25 18:15 02/17/25 19:46 02/17/25 20:31 Temperature Pulse Rate 105 H 106 H 102 H Respiratory Rate 20 17 14 Blood Pressure 115/72 111/63 99/57 L Pulse Oximetry 02/17/25 22:01 02/17/25 23:46 02/18/25 00:01 Temperature Pulse Rate 87 103 H 102 H Respiratory Rate 17 16 21 H Blood Pressure 98/55 L 103/60 97/57 L Pulse Oximetry 02/18/25 00:16 02/18/25 00:46 02/18/25 01:01 Temperature Pulse Rate 101 H 114 H 101 H Respiratory Rate 24 H 21 H 20 Blood Pressure 98/65 L 116/88 107/62 Pulse Oximetry 02/18/25 01:16 02/18/25 01:24 02/18/25 01:31 Temperature Pulse Rate 96 104 H 117 H Respiratory Rate 20 18 23 H Blood Pressure 94/76 L 94/76 L 99/75 L Pulse Oximetry 96 02/18/25 03:58 02/18/25 06:03 02/18/25 07:00 Temperature 97.9 F Pulse Rate 95 91 91 Respiratory Rate 17 18 16 Blood Pressure 127/97 H 90/54 L 111/58 L Pulse Oximetry 97 95 97 02/18/25 08:00 02/18/25 09:09 Temperature 97.6 F 97.6 F Pulse Rate 92 85 Respiratory Rate 16 16 Blood Pressure 115/67 Pulse Oximetry 98 97 Intake/Output Intake/Output: Intake & Output 02/15/25 02/16/25 02/17/25 02/18/25 23:59 23:59 23:59 23:59 Intake Total 900 1058.3 Output Total 0 Balance 900 1058.3 Meds/Results Medications: Active Medications Generic Name Dose Route Start Last Admin Trade Name Freq PRN Reason Stop Dose Admin Acetaminophen 500 mg 02/18/25 01:02 Acetaminophen 500 Mg Tablet PO Q6H PRN Mild Pain (1-3) or Fever Dextrose 12.5 gm 02/17/25 22:05 Dextrose 50% 25 Gm/50 Ml Syringe IV PUSH PRN PRN Hypoglycemia Protocol Glucagon 1 mg 02/17/25 22:05 Glucagon For Inj 1 Mg Vial IM PRN PRN Hypoglycemia Protocol Glucose 15 gm 02/17/25 22:05 Glucose Oral Gel 15 Gm Of Glucse In 37.5 Gm Tube PO PRN PRN Hypoglycemia Protocol Potassium Chloride/Dextrose/Sod Cl 1,000 mls @ 125 mls/hr 02/17/25 22:50 02/18/25 05:52 Kcl 40 Meq/D5 1/2ns IV CONT 125 mls/hr .Q8H KASHIF Infusion Oxycodone/Acetaminophen 1 tab 02/18/25 01:02 Oxycodone/Acetaminophen (*Crx) 10-325 Mg Tablet PO Q6H PRN Pain Rated 7-10 Radiology Results: ITS Impressions Chest X-Ray 02/17/25 19:57 IMPRESSION: No acute cardiopulmonary process. Head CT 02/17/25 21:27 IMPRESSION: No acute intracranial process. Head/Cervical Spine/Facial Bones CT 02/17/25 21:48 IMPRESSION: No acute fracture or traumatic malalignment in the cervical spine. No acute facial bone fracture. Labs Labs: Laboratory Results - last 24 hr 02/17/25 02/17/25 02/17/25 18:23 18:56 18:57 WBC 12.2 H RBC 3.39 L Hgb 11.4 L Hct 32.6 L MCV 96.2 MCH 33.6 MCHC 35.0 RDW 15.8 H Plt Count 286 MPV 10.7 H Immature Gran % (Auto) 0.5 Neut % (Auto) 92.4 H Lymph % (Auto) 3.5 L Reagan % (Auto) 3.5 Eos % (Auto) 0.0 Baso % (Auto) 0.1 L Lymph # (Auto) 0.42 L Reagan # (Auto) 0.4 Eos # (Auto) 0.0 Baso # (Auto) 0.0 Abs Immat Gran (auto) 0.06 H Absolute Neuts (auto) 11.3 H Absolute Nucleated RBC 0.000 Nucleated RBC % 0.0 Sodium 138 Potassium 2.8 L* Chloride 99 Carbon Dioxide 17 L Anion Gap 22 H BUN 19 H Creatinine 1.14 H Estim Creat Clear Calc 17 Estimated GFR 46 L Glucose 296 H POC Capillary Glucose 84 Calcium 7.9 L Phosphorus Magnesium Total Bilirubin 0.8 AST 80 H ALT 54 H Alkaline Phosphatase 70 Total Creatine Kinase Total Protein 6.0 L Albumin 3.0 L TSH (Reflex) Urine Color Dark yellow Urine Appearance Clear Urine pH 6.0 Ur Specific [place] 1.016 Urine Protein 2+ H Urine Glucose (UA) 1+ H Urine Ketones 3+ H Ur Blood (Man) 2+ H Urine Nitrate Negative Urine Bilirubin Negative Urine Urobilinogen 1.0 Leukocyte Esterase Rfl Trace H Urine RBC 11-20 H Urine WBC 0-5 Ur Squamous Epith Cells None seen Urine Bacteria None seen Urine Casts 3-5 Hyaline Casts Present Influenza A (RT-PCR) Influenza B (RT-PCR) RSV (RT-PCR) SARS-CoV-2 RNA (RT-PCR) 02/17/25 02/17/25 02/17/25 21:31 22:42 23:16 WBC RBC Hgb Hct MCV MCH MCHC RDW Plt Count MPV Immature Gran % (Auto) Neut % (Auto) Lymph % (Auto) Reagan % (Auto) Eos % (Auto) Baso % (Auto) Lymph # (Auto) Reagan # (Auto) Eos # (Auto) Baso # (Auto) Abs Immat Gran (auto) Absolute Neuts (auto) Absolute Nucleated RBC Nucleated RBC % Sodium Potassium Chloride Carbon Dioxide Anion Gap BUN Creatinine Estim Creat Clear Calc Estimated GFR Glucose POC Capillary Glucose 144 H Calcium Phosphorus 2.9 Magnesium 1.8 Total Bilirubin AST ALT Alkaline Phosphatase Total Creatine Kinase 398 H Total Protein Albumin TSH (Reflex) 0.784 Urine Color Urine Appearance Urine pH Ur Specific [place] Urine Protein Urine Glucose (UA) Urine Ketones Ur Blood (Man) Urine Nitrate Urine Bilirubin Urine Urobilinogen Leukocyte Esterase Rfl Urine RBC Urine WBC Ur Squamous Epith Cells Urine Bacteria Urine Casts Hyaline Casts Influenza A (RT-PCR) Negative Influenza B (RT-PCR) Negative RSV (RT-PCR) Negative SARS-CoV-2 RNA (RT-PCR) Negative 02/18/25 02/18/25 02/18/25 03:57 03:57 03:57 WBC 11.7 H RBC 3.10 L Hgb 10.5 L Hct 29.5 L MCV 95.2 MCH 33.9 MCHC 35.6 RDW 16.0 H Plt Count 283 MPV 10.7 H Immature Gran % (Auto) Neut % (Auto) Lymph % (Auto) Reagan % (Auto) Eos % (Auto) Baso % (Auto) Lymph # (Auto) Reagan # (Auto) Eos # (Auto) Baso # (Auto) Abs Immat Gran (auto) Absolute Neuts (auto) Absolute Nucleated RBC Nucleated RBC % Sodium Cancelled 139 Potassium Cancelled 3.7 Chloride Cancelled Carbon Dioxide Anion Gap BUN Creatinine Estim Creat Clear Calc Estimated GFR Glucose POC Capillary Glucose Calcium Phosphorus Magnesium Total Bilirubin AST ALT Alkaline Phosphatase Total Creatine Kinase Total Protein Albumin TSH (Reflex) Urine Color Urine Appearance Urine pH Ur Specific [place] Urine Protein Urine Glucose (UA) Urine Ketones Ur Blood (Man) Urine Nitrate Urine Bilirubin Urine Urobilinogen Leukocyte Esterase Rfl Urine RBC Urine WBC Ur Squamous Epith Cells Urine Bacteria Urine Casts Hyaline Casts Influenza A (RT-PCR) Influenza B (RT-PCR) RSV (RT-PCR) SARS-CoV-2 RNA (RT-PCR) 02/18/25 02/18/25 02/18/25 03:57 03:57 03:57 WBC RBC Hgb Hct MCV MCH MCHC RDW Plt Count MPV Immature Gran % (Auto) Neut % (Auto) Lymph % (Auto) Reagan % (Auto) Eos % (Auto) Baso % (Auto) Lymph # (Auto) Reagan # (Auto) Eos # (Auto) Baso # (Auto) Abs Immat Gran (auto) Absolute Neuts (auto) Absolute Nucleated RBC Nucleated RBC % Sodium Potassium Chloride 105 Carbon Dioxide Cancelled 23 Anion Gap Cancelled 11 BUN Cancelled Creatinine Estim Creat Clear Calc Estimated GFR Glucose POC Capillary Glucose Calcium Phosphorus Magnesium Total Bilirubin AST ALT Alkaline Phosphatase Total Creatine Kinase Total Protein Albumin TSH (Reflex) Urine Color Urine Appearance Urine pH Ur Specific [place] Urine Protein Urine Glucose (UA) Urine Ketones Ur Blood (Man) Urine Nitrate Urine Bilirubin Urine Urobilinogen Leukocyte Esterase Rfl Urine RBC Urine WBC Ur Squamous Epith Cells Urine Bacteria Urine Casts Hyaline Casts Influenza A (RT-PCR) Influenza B (RT-PCR) RSV (RT-PCR) SARS-CoV-2 RNA (RT-PCR) 02/18/25 02/18/25 02/18/25 03:57 03:57 03:57 WBC RBC Hgb Hct MCV MCH MCHC RDW Plt Count MPV Immature Gran % (Auto) Neut % (Auto) Lymph % (Auto) Reagan % (Auto) Eos % (Auto) Baso % (Auto) Lymph # (Auto) Reagan # (Auto) Eos # (Auto) Baso # (Auto) Abs Immat Gran (auto) Absolute Neuts (auto) Absolute Nucleated RBC Nucleated RBC % Sodium Potassium Chloride Carbon Dioxide Anion Gap BUN 20 H Creatinine Cancelled 1.03 H Estim Creat Clear Calc Cancelled 19 Estimated GFR Cancelled Glucose POC Capillary Glucose Calcium Phosphorus Magnesium Total Bilirubin AST ALT Alkaline Phosphatase Total Creatine Kinase Total Protein Albumin TSH (Reflex) Urine Color Urine Appearance Urine pH Ur Specific [place] Urine Protein Urine Glucose (UA) Urine Ketones Ur Blood (Man) Urine Nitrate Urine Bilirubin Urine Urobilinogen Leukocyte Esterase Rfl Urine RBC Urine WBC Ur Squamous Epith Cells Urine Bacteria Urine Casts Hyaline Casts Influenza A (RT-PCR) Influenza B (RT-PCR) RSV (RT-PCR) SARS-CoV-2 RNA (RT-PCR) 02/18/25 02/18/25 02/18/25 03:57 03:57 03:57 WBC RBC Hgb Hct MCV MCH MCHC RDW Plt Count MPV Immature Gran % (Auto) Neut % (Auto) Lymph % (Auto) Reagan % (Auto) Eos % (Auto) Baso % (Auto) Lymph # (Auto) Reagan # (Auto) Eos # (Auto) Baso # (Auto) Abs Immat Gran (auto) Absolute Neuts (auto) Absolute Nucleated RBC Nucleated RBC % Sodium Potassium Chloride Carbon Dioxide Anion Gap BUN Creatinine Estim Creat Clear Calc Estimated GFR 51 L Glucose Cancelled 123 H POC Capillary Glucose Calcium Cancelled 7.7 L Phosphorus Magnesium Total Bilirubin Cancelled AST ALT Alkaline Phosphatase Total Creatine Kinase Total Protein Albumin TSH (Reflex) Urine Color Urine Appearance Urine pH Ur Specific [place] Urine Protein Urine Glucose (UA) Urine Ketones Ur Blood (Man) Urine Nitrate Urine Bilirubin Urine Urobilinogen Leukocyte Esterase Rfl Urine RBC Urine WBC Ur Squamous Epith Cells Urine Bacteria Urine Casts Hyaline Casts Influenza A (RT-PCR) Influenza B (RT-PCR) RSV (RT-PCR) SARS-CoV-2 RNA (RT-PCR) 02/18/25 02/18/25 02/18/25 03:57 03:57 03:57 WBC RBC Hgb Hct MCV MCH MCHC RDW Plt Count MPV Immature Gran % (Auto) Neut % (Auto) Lymph % (Auto) Reagan % (Auto) Eos % (Auto) Baso % (Auto) Lymph # (Auto) Reagan # (Auto) Eos # (Auto) Baso # (Auto) Abs Immat Gran (auto) Absolute Neuts (auto) Absolute Nucleated RBC Nucleated RBC % Sodium Potassium Chloride Carbon Dioxide Anion Gap BUN Creatinine Estim Creat Clear Calc Estimated GFR Glucose POC Capillary Glucose Calcium Phosphorus Magnesium Total Bilirubin 0.7 AST Cancelled 77 H ALT Cancelled 55 H Alkaline Phosphatase Cancelled Total Creatine Kinase Total Protein Albumin TSH (Reflex) Urine Color Urine Appearance Urine pH Ur Specific [place] Urine Protein Urine Glucose (UA) Urine Ketones Ur Blood (Man) Urine Nitrate Urine Bilirubin Urine Urobilinogen Leukocyte Esterase Rfl Urine RBC Urine WBC Ur Squamous Epith Cells Urine Bacteria Urine Casts Hyaline Casts Influenza A (RT-PCR) Influenza B (RT-PCR) RSV (RT-PCR) SARS-CoV-2 RNA (RT-PCR) 02/18/25 02/18/25 02/18/25 03:57 03:57 03:57 WBC RBC Hgb Hct MCV MCH MCHC RDW Plt Count MPV Immature Gran % (Auto) Neut % (Auto) Lymph % (Auto) [place] % (Auto) Eos % (Auto) Baso % (Auto) Lymph # (Auto) Reagan # (Auto) Eos # (Auto) Baso # (Auto) Abs Immat Gran (auto) Absolute Neuts (auto) Absolute Nucleated RBC Nucleated RBC % Sodium Potassium Chloride Carbon Dioxide Anion Gap BUN Creatinine Estim Creat Clear Calc Estimated GFR Glucose POC Capillary Glucose Calcium Phosphorus Magnesium Total Bilirubin AST ALT Alkaline Phosphatase 66 Total Creatine Kinase 396 H Total Protein Cancelled 5.0 L Albumin Cancelled 2.8 L TSH (Reflex) Urine Color Urine Appearance Urine pH Ur Specific [place] Urine Protein Urine Glucose (UA) Urine Ketones Ur Blood (Man) Urine Nitrate Urine Bilirubin Urine Urobilinogen Leukocyte Esterase Rfl Urine RBC Urine WBC Ur Squamous Epith Cells Urine Bacteria Urine Casts Hyaline Casts Influenza A (RT-PCR) Influenza B (RT-PCR) RSV (RT-PCR) SARS-CoV-2 RNA (RT-PCR)
--- NOTE | 2025-02-18 12:25 | ADMGEN ---
This patient, Elena Goncalves, was admitted to [facility] Surg Room 332-02 at 0945. Patient/family oriented to hospital policies and general routines including ID bracelet, bed and alarms, visiting hours, pain management, procedures, bathroom and other care routines, personal items, smoking policy, room service/diet, and visiting hours. Information on how to activate the Rapid Response Team has been discussed. Patient/Family are encouraged to report perceived risks to care and to ask questions if they do not understand what they are told or what they should do.
[2025-02-18] MEDS: KCL 40 MEQ/D5 1/2NS 1,000 ML 125 ML IV CONT (12:40)
[2025-02-18 13:27] LABS: Glucose Point of Care 112 mg/dl (65-105)
[2025-02-18 16:42] LABS: Glucose Point of Care 76 mg/dl (65-105)
[2025-02-18] MEDS: oxyCODONE/ACETAMINOPHEN (*CRX) 10-325 MG TABLET 1 TAB PO (20:22)
[2025-02-18] MEDS: DEXTROSE 50% 25 GM/50 ML SYRINGE IV PUSH (20:38)
[2025-02-18 20:58] LABS: Glucose Point of Care 99 mg/dl (65-105)
[2025-02-18 21:19] LABS: Glucose Point of Care 173 mg/dl (65-105)
[2025-02-18 21:27] LABS: Glucose Point of Care 45 mg/dl (65-105)
[2025-02-19] VITALS (8 sets, daily range): BP systolic 92–120; BP diastolic 56–78; PULSE 60–100; RESP 16–20; TEMP 36.4–37; O2SAT 90–100
[2025-02-19] MEDS: oxyCODONE/ACETAMINOPHEN (*CRX) 10-325 MG TABLET 1 TAB PO ×3 (05:50→18:21)
[2025-02-19] MEDS: KCL 40 MEQ/D5 1/2NS 1,000 ML 125 ML IV CONT ×2 (06:05→18:22)
[2025-02-19 06:12] LABS: Glucose Point of Care 162 mg/dl (65-105)
[2025-02-19 06:12] LABS: Glucose Point of Care 120 mg/dl (65-105)
[2025-02-19 07:45] LABS: Glucose Point of Care 80 mg/dl (65-105)
[2025-02-19 09:22] LABS: Eosinophils Percent Auto 0.6 % (0-4.4); Hematocrit 29.4 % (37.0-47.0); Hemoglobin 10.1 g/dL (12.0-15.0); Immature Granulocyte Absolute 0.02 K/mm3 (0.00-0.031); Immature Granulocyte Percent A 0.4 % (0-0.5); Lymphocytes Absolute Auto 1.36 K/mm3 (0.9-3.2); Lymphocytes Percent Auto 25.1 % (18.3-44.2); Mean Corpuscular HGB Conc 34.4 g/dl (32-36); Mean Corpuscular Hemoglobin 33.4 pg (26-34); Mean Corpuscular Volume 97.4 fl (80-100); Mean Platelet Volume 10.6 fl (7.4-10.4); Monocytes Absolute Auto 0.3 K/mm3 (0.1-0.6); Monocytes Percent Auto 5.7 % (2.6-8.5); Neutrophils Absolute Auto 3.7 K/mm3 (1.3-6.7); Neutrophils Percent Auto 68.2 % (45.5-73.1); Platelet Count Result 235 k/mm3 (150-375); Red Blood Count 3.02 M/mm3 (4.2-5.4); Red Cell Distribution Width 16.2 % (11.5-14.5); White Blood Count 5.4 K/mm3 (4.5-10.0)
[2025-02-19 09:36] LABS: Alanine Aminotransferase 44 U/L (6-35); Albumin Level 2.2 g/dL (3.5-5.1); Alkaline Phosphatase 56 U/L (38-126); Anion Gap -1 mmol/L (4-12); Aspartate Amino Transferase 51 U/L (14-36); Bilirubin,Total 0.5 mg/dL (0.2-1.3); Blood Urea Nitrogen 13 mg/dL (7-17); Calcium 7.2 mg/dL (8.4-10.2); Carbon Dioxide 28 mmol/L (22-30); Chloride 107 mmol/L (98-107); Creatine Kinase 157 U/L (30-135); Estimated CRCL calculation 36 ml/min; Estimated Glomerular Filt Rate > 60; Glucose 115 mg/dL (65-110); Magnesium 1.7 mg/dL (1.6-2.3); Potassium 4.5 mmol/L (3.4-5.0); Sodium 134 mmol/L (137-145)
[2025-02-19 11:40] LABS: Glucose Point of Care 69 mg/dl (65-105)
[2025-02-19] MEDS: DEXTROSE 50% 25 GM/50 ML SYRINGE IV PUSH (11:44)
--- NOTE | 2025-02-19 12:19 | P.PNIM_ITS ---
Progress Note: A&P Assessment and Plan (1) Severe protein-calorie malnutrition: Code(s): E43 - Unspecified severe protein-calorie malnutrition Status: Acute Assessment and Plan: * Protein 5.0. * Ensure Enlive TID with meals. * Economic Analyst following. * Care coordination/hospice consult. (2) MIRNA (acute kidney injury): Code(s): N17.9 - Acute kidney failure, unspecified Status: Acute Assessment and Plan: * Creatinine 0.56, improved. * Encourage oral intake. * D5 1/2 NS + 20 KCL @ 125 ml/hr. (3) Acute hypokalemia: Code(s): E87.6 - Hypokalemia Status: Acute Assessment and Plan: * Potassium 4.5 * D5 1/2 NS + 20 KCL @ 125 ml/hr. (4) High anion gap metabolic acidosis: Code(s): E87.29 - Other acidosis Status: Acute Assessment and Plan: * Current anion gap is -1L (5) Transaminitis: Code(s): R74.01 - Elevation of levels of liver transaminase levels Status: Acute Assessment and Plan: * AST 51, ALT 44. (6) Rhabdomyolysis: Qualifiers: Rhabdomyolysis type: non-traumatic Qualified Code(s): M62.82 - Rhabdomyolysis Code(s): M62.82 - Rhabdomyolysis Status: Acute Assessment and Plan: * Mild rhabdomyolysis * CPK is 157 * Continue IV fluid (7) Adult failure to thrive: Code(s): R62.7 - Adult failure to thrive Status: Acute Assessment and Plan: * Economic Analyst consult. * Care coordination for a hospice consult. (8) Dementia: Qualifiers: Dementia type: unspecified type Dementia severity: mild Dementia behavioral or psychological symptom: unspecified whether behavioral, psychotic, or mood disturbance or anxiety Qualified Code(s): F03.A0 - Unspecified dementia, mild, without behavioral disturbance, psychotic disturbance, mood disturbance, and anxiety Code(s): F03.90 - Unspecified dementia, unspecified severity, without behavioral disturbance, psychotic disturbance, mood disturbance, and anxiety Status: Acute (9) Chronic pain disorder: Code(s): G89.4 - Chronic pain syndrome Status: Acute Assessment and Plan: * Percocet 10-325 mg 1 tab PO q 6 PRN. (10) GERD (gastroesophageal reflux disease): Code(s): K21.9 - Gastro-esophageal reflux disease without esophagitis Status: Acute Assessment and Plan: * Add Pantoprazole 40 mg PO daily. Plan 79-year-old female with a past medical history of depression, dementia, chronic pain and severe protein calorie malnutrition who presented to the ER from home via EMS after wellness check found the patient on the floor. The patient's was found to be profoundly hypoglycemic with a glucose of 22. Hypoglycemia, dehydration, starvation Patient presented with severe hypoglycemia likely due to severe protein calorie malnutrition ketosis with 2+ ketones in her urine, anion gap acidosis and marked dehydration. continue IV fluid hydration with D5 half-normal saline with 40 of potassium chloride. check Accu-Cheks q.4 hours x3 then transition to q.6 hours and eventually a.c. Severe malnutrition Patient has dementia, possible due to adequate intake and difficulty swallowing Patient passed speech therapy evaluation. Patient does have evidence of starvation Consult dietitian Depression Patient condition is not stable, patient seems aware to her condition. Patient requests to be discharged home, he wants leave AMA. Patient has obvious de pression, and had history of suicide attempt Patient came home, had multiple falls recently. Patient cannot take care of herself. We gave her warning of risk of fall and even due to fall and s evere malnutrition after leaving AMA, but she still wanted to leave AMA. We need crisis team to re-evaluate the patient when patient became medically stable Consult PT OT hospital social worker for evaluation and assisting placement Subjective Date/time seen: 02/19/25 12:19 Interval history: Patient rates pain in her abdomen an 8 , constant, and cramping. Patient reports having burning in abdomen. Patient denies chest pain, palpitations, headache, nausea, or vomiting. Patient reports trying to eat what she can. Review of Systems Review of Systems: All systems reviewed & are unremarkable except as noted in HPI and below Exam Const: General: no acute distress and uncomfortable Resp: Effort & Inspection: normal respiratory effort Auscultation: clear to auscultation bilaterally Cardio: Rate: regular rate Rhythm: regular rhythm GI: GI Palp: Yes Soft to palpation Auscultation: normal bowel sounds Neuro: Speech: normal speech Extrem: General: no pedal edema Psych: Affect: Anxious affect present Objective Data Vital Signs Vital Signs: Vital Signs - 24 hr 02/18/25 14:00 02/18/25 16:01 02/18/25 20:00 Temperature 96.9 F L Pulse Rate 108 H 75 91 Respiratory Rate 16 Blood Pressure 113/61 Pulse Oximetry 95 02/18/25 22:00 02/19/25 04:00 02/19/25 05:40 Temperature 98.8 F 98.6 F Pulse Rate 87 77 79 Respiratory Rate 16 16 Blood Pressure 113/78 100/67 Pulse Oximetry 98 98 Intake/Output Intake/Output: Intake & Output 02/16/25 02/17/25 02/18/25 02/19/25 23:59 23:59 23:59 23:59 Intake Total 900 2390.0 150 Output Total 100 500 Balance 900 2290.0 -350 Meds/Results Medications: Active Medications Generic Name Dose Route Start Last Admin Trade Name Freq PRN Reason Stop Dose Admin Acetaminophen 500 mg 02/18/25 01:02 Acetaminophen 500 Mg Tablet PO Q6H PRN Mild Pain (1-3) or Fever Dextrose 12.5 gm 02/17/25 22:05 02/19/25 11:44 Dextrose 50% 25 Gm/50 Ml Syringe IV PUSH 12.5 gm PRN PRN Administration Hypoglycemia Protocol Glucagon 1 mg 02/17/25 22:05 Glucagon For Inj 1 Mg Vial IM PRN PRN Hypoglycemia Protocol Glucose 15 gm 02/17/25 22:05 Glucose Oral Gel 15 Gm Of Glucse In 37.5 Gm Tube PO PRN PRN Hypoglycemia Protocol Potassium Chloride/Dextrose/Sod Cl 1,000 mls @ 125 mls/hr 02/17/25 22:50 02/19/25 09:29 Kcl 40 Meq/D5 1/2ns IV CONT Not Given .Q8H KASHIF Oxycodone/Acetaminophen 1 tab 02/18/25 01:02 02/19/25 11:56 Oxycodone/Acetaminophen (*Crx) 10-325 Mg Tablet PO 1 tab Q6H PRN Administration Pain Rated 7-10 Radiology Results: ITS Impressions Chest X-Ray 02/17/25 19:57 IMPRESSION: No acute cardiopulmonary process. Head CT 02/17/25 21:27 IMPRESSION: No acute intracranial process. Head/Cervical Spine/Facial Bones CT 02/17/25 21:48 IMPRESSION: No acute fracture or traumatic malalignment in the cervical spine. No acute fa cial bone fracture. Labs Labs: Laboratory Results - last 24 hr 02/18/25 02/18/25 02/18/25 13:18 16:36 20:11 WBC RBC Hgb Hct MCV MCH MCHC RDW Plt Count MPV Immature Gran % (Auto) Neut % (Auto) Lymph % (Auto) [place] % (Auto) Eos % (Auto) Baso % (Auto) Lymph # (Auto) [place] # (Auto) Eos # (Auto) Baso # (Auto) Abs Immat Gran (auto) Absolute Neuts (auto) Absolute Nucleated RBC Nucleated RBC % Sodium Potassium Chloride Carbon Dioxide Anion Gap BUN Creatinine Estim Creat Clear Calc Estimated GFR Glucose POC Capillary Glucose 112 H 76 45 L* Calcium Magnesium Total Bilirubin AST ALT Alkaline Phosphatase Total Creatine Kinase Total Protein Albumin 02/18/25 02/18/25 02/19/25 20:55 21:09 00:00 WBC RBC Hgb Hct MCV MCH MCHC RDW Plt Count MPV Immature Gran % (Auto) Neut % (Auto) Lymph % (Auto) [place] % (Auto) Eos % (Auto) Baso % (Auto) Lymph # (Auto) [place] # (Auto) Eos # (Auto) Baso # (Auto) Abs Immat Gran (auto) Absolute Neuts (auto) Absolute Nucleated RBC Nucleated RBC % Sodium Potassium Chloride Carbon Dioxide Anion Gap BUN Creatinine Estim Creat Clear Calc Estimated GFR Glucose POC Capillary Glucose 99 173 H 162 H Calcium Magnesium Total Bilirubin AST ALT Alkaline Phosphatase Total Creatine Kinase Total Protein Albumin 02/19/25 02/19/25 02/19/25 04:06 07:43 09:08 WBC 5.4 RBC 3.02 L Hgb 10.1 L Hct 29.4 L MCV 97.4 MCH 33.4 MCHC 34.4 RDW 16.2 H Plt Count 235 MPV 10.6 H Immature Gran % (Auto) 0.4 Neut % (Auto) 68.2 Lymph % (Auto) 25.1 [place] % (Auto) 5.7 Eos % (Auto) 0.6 Baso % (Auto) 0.0 L Lymph # (Auto) 1.36 [place] # (Auto) 0.3 Eos # (Auto) 0.0 Baso # (Auto) 0.0 Abs Immat Gran (auto) 0.02 Absolute Neuts (auto) 3.7 Absolute Nucleated RBC 0.000 Nucleated RBC % 0.0 Sodium 134 L Potassium 4.5 Chloride 107 Carbon Dioxide 28 Anion Gap -1 L BUN 13 D Creatinine 0.56 L Estim Creat Clear Calc 36 Estimated GFR > 60 Glucose 115 H POC Capillary Glucose 120 H 80 Calcium 7.2 L Magnesium 1.7 Total Bilirubin 0.5 AST 51 H ALT 44 H Alkaline Phosphatase 56 Total Creatine Kinase 157 H Total Protein 5.0 L Albumin 2.2 L 02/19/25 11:35 WBC RBC Hgb Hct MCV MCH MCHC RDW Plt Count MPV Immature Gran % (Auto) Neut % (Auto) Lymph % (Auto) [place] % (Auto) Eos % (Auto) Baso % (Auto) Lymph # (Auto) [place] # (Auto) Eos # (Auto) Baso # (Auto) Abs Immat Gran (auto) Absolute Neuts (auto) Absolute Nucleated RBC Nucleated RBC % Sodium Potassium Chloride Carbon Dioxide Anion Gap BUN Creatinine Estim Creat Clear Calc Estimated GFR Glucose POC Capillary Glucose 69 Calcium Magnesium Total Bilirubin AST ALT Alkaline Phosphatase Total Creatine Kinase Total Protein Albumin Quality VTE Prophylaxis VTE prophylaxis: mechanical ordered (SCDs)
[2025-02-19 14:01] LABS: Glucose Point of Care 102 mg/dl (65-105)
[2025-02-19] MEDS: PANTOPRAZOLE 40 MG TABLET PO (14:58)
[2025-02-19 16:14] LABS: Glucose Point of Care 97 mg/dl (65-105)
[2025-02-19 20:49] LABS: Glucose Point of Care 69 mg/dl (65-105)
[2025-02-19] MEDS: GLUCOSE ORAL GEL 15 GM OF GLUCSE IN 37.5 GM TUBE PO ×2 (20:55→21:37)
[2025-02-19 21:21] LABS: Glucose Point of Care 63 mg/dl (65-105)
[2025-02-19 22:05] LABS: Glucose Point of Care 71 mg/dl (65-105)
[2025-02-20] VITALS (10 sets, daily range): BP systolic 90–123; BP diastolic 60–76; PULSE 66–123; RESP 13–18; TEMP 36.1–36.6; O2SAT 91–100
[2025-02-20 00:08] LABS: Glucose Point of Care 98 mg/dl (65-105)
[2025-02-20] MEDS: KCL 40 MEQ/D5 1/2NS 1,000 ML 125 ML IV CONT (03:54)
[2025-02-20] MEDS: oxyCODONE/ACETAMINOPHEN (*CRX) 10-325 MG TABLET 1 TAB PO ×4 (03:55→23:29)
[2025-02-20 04:33] LABS: Glucose Point of Care 83 mg/dl (65-105)
[2025-02-20 07:43] LABS: Glucose Point of Care 105 mg/dl (65-105)
[2025-02-20] MEDS: PANTOPRAZOLE 40 MG TABLET PO (08:46)
[2025-02-20] MEDS: ACETAMINOPHEN 500 MG TABLET PO (08:46)
[2025-02-20 09:26] LABS: Basophils Percent Auto 0.2 % (0.2-1.2); Eosinophils Percent Auto 0.5 % (0-4.4); Hematocrit 33.3 % (37.0-47.0); Hemoglobin 11.4 g/dL (12.0-15.0); Immature Granulocyte Absolute 0.04 K/mm3 (0.00-0.031); Immature Granulocyte Percent A 0.7 % (0-0.5); Lymphocytes Absolute Auto 0.83 K/mm3 (0.9-3.2); Lymphocytes Percent Auto 13.6 % (18.3-44.2); Mean Corpuscular HGB Conc 34.2 g/dl (32-36); Mean Corpuscular Hemoglobin 33.7 pg (26-34); Mean Corpuscular Volume 98.5 fl (80-100); Mean Platelet Volume 10.4 fl (7.4-10.4); Monocytes Absolute Auto 0.3 K/mm3 (0.1-0.6); Monocytes Percent Auto 5.2 % (2.6-8.5); Neutrophils Absolute Auto 4.9 K/mm3 (1.3-6.7); Neutrophils Percent Auto 79.8 % (45.5-73.1); Platelet Count Result 245 k/mm3 (150-375); Red Blood Count 3.38 M/mm3 (4.2-5.4); Red Cell Distribution Width 15.6 % (11.5-14.5); White Blood Count 6.1 K/mm3 (4.5-10.0)
[2025-02-20 09:36] LABS: Alanine Aminotransferase 51 U/L (6-35); Albumin Level 2.4 g/dL (3.5-5.1); Alkaline Phosphatase 67 U/L (38-126); Anion Gap 3 mmol/L (4-12); Aspartate Amino Transferase 70 U/L (14-36); Bilirubin,Total 0.7 mg/dL (0.2-1.3); Blood Urea Nitrogen 8 mg/dL (7-17); Calcium 7.5 mg/dL (8.4-10.2); Carbon Dioxide 22 mmol/L (22-30); Chloride 107 mmol/L (98-107); Estimated CRCL calculation 45 ml/min; Estimated Glomerular Filt Rate > 60; Glucose 111 mg/dL (65-110); Magnesium 1.4 mg/dL (1.6-2.3); Phosphorus 1.5 mg/dL (2.5-4.5); Potassium 5.8 mmol/L (3.4-5.0); Sodium 132 mmol/L (137-145)
[2025-02-20] MEDS: POTASSIUM/PHOSPHORUS/SODIUM 1.5 GM PACKET 1 PACKET PO (10:20)
[2025-02-20] MEDS: DEXTROSE 5%/0.45% SOD CHL 1,000 ML 100 ML IV CONT (10:21)
[2025-02-20] MEDS: MAGNESIUM SULF 2 GM/WATER 50ML 2 GM/50 ML BAG IVPB (10:23)
--- NOTE | 2025-02-20 11:13 | P.PNIM_ITS ---
Progress Note: A&P Assessment and Plan (1) Severe protein-calorie malnutrition: Code(s): E43 - Unspecified severe protein-calorie malnutrition Status: Acute Assessment and Plan: * Protein 5.0. * Ensure Enlive TID with meals. * Section Leader And Machine Setter following. * Family does not want to initiate PPN. * Care coordination/hospice consult. (2) MIRNA (acute kidney injury): Code(s): N17.9 - Acute kidney failure, unspecified Status: Acute Assessment and Plan: * Creatinine 0.57, improved. * Encourage oral intake. * D5 1/2 NS @ 100 ml/hr. (3) High anion gap metabolic acidosis: Code(s): E87.29 - Other acidosis Status: Acute Assessment and Plan: * Current anion gap is 2 (4) Transaminitis: Code(s): R74.01 - Elevation of levels of liver transaminase levels Status: Acute Assessment and Plan: * AST 70, ALT 51. (5) Rhabdomyolysis: Qualifiers: Rhabdomyolysis type: non-traumatic Qualified Code(s): M62.82 - Rhabdomyolysis Code(s): M62.82 - Rhabdomyolysis Status: Acute Assessment and Plan: * Mild rhabdomyolysis * CPK is 157 * Continue IV fluid (6) Adult failure to thrive: Code(s): R62.7 - Adult failure to thrive Status: Acute Assessment and Plan: * Section Leader And Machine Setter consult. * Care coordination for a hospice consult. (7) Dementia: Qualifiers: Dementia type: unspecified type Dementia severity: mild Dementia behavioral or psychological symptom: unspecified whether behavioral, psychotic, or mood disturbance or anxiety Qualified Code(s): F03.A0 - Unspecified dementia, mild, without behavioral disturbance, psychotic disturbance, mood disturbance, and anxiety Code(s): F03.90 - Unspecified dementia, unspecified severity, without behavioral disturbance, psychotic disturbance, mood disturbance, and anxiety Status: Acute (8) Chronic pain disorder: Code(s): G89.4 - Chronic pain syndrome Status: Acute Assessment and Plan: * Percocet 10-325 mg 1 tab PO q 6 PRN. (9) GERD (gastroesophageal reflux disease): Code(s): K21.9 - Gastro-esophageal reflux disease without esophagitis Status: Acute Assessment and Plan: * Pantoprazole 40 mg PO daily. (10) Hyperkalemia: Code(s): E87.5 - Hyperkalemia Status: Acute Assessment and Plan: * Potassium 5.9. * IV fluids changed to D5 1/2 NS @ 100 ml/hr. * Lokelma ordered. * Monitor levels. Plan 79-year-old female with a past medical history of depression, dementia, chronic pain and severe protein calorie malnutrition who presented to the ER from home via EMS after wellness check found the patient on the floor. The patient's was found to be profoundly hypoglycemic with a glucose of 22. Hypoglycemia, dehydration, starvation Patient presented with severe hypoglycemia likely due to severe protein calorie malnutrition ketosis with 2+ ketones in her urine, anion gap acidosis and marked dehydration. continue IV fluid hydration with D5 half-normal saline with 40 of potassium chloride. check Accu-Cheks q.4 hours x3 then transition to q.6 hours and eventually a.c. Severe malnutrition Patient has dementia, possible due to adequate intake and difficulty swallowing Patient passed speech therapy evaluation. Patient does have evidence of starvation Consult dietitian Depression Patient condition is not stable, patient seems aware to her condition. Patient requests to be discharged home, he wants leave AMA. Patient has obvious depression, and had history of suicide attempt Patient came home, had multiple falls recently. Patient cannot take care of herself. We gave her warning of risk of fall and even due to fall and severe malnutrition after leaving AMA, but she still wanted to leave AMA. We need crisis team to re-evaluate the patient when patient became medically stable Consult PT OT social studies department chair for evaluation and assisting placement Subjective Date/time seen: 02/20/25 11:13 Interval history: Patient lying in bed. Tearful at times. Patient thinks that she is at her moms house. Patient reports pain but is unable to describe. Patient denies chest pain or palpitations. Review of Systems Review of Systems: All systems reviewed & are unremarkable except as noted in HPI and below Exam Const: General: no acute distress and uncomfortable Resp: Effort & Inspection: normal respiratory effort Auscultation: clear to auscultation bilaterally Cardio: Rate: regular rate Rhythm: regular rhythm GI: GI Palp: Yes Soft to palpation Auscultation: normal bowel sounds Neuro: Speech: normal speech Extrem: General: no pedal edema Psych: Other: Tearful Objective Data Vital Signs Vital Signs: Vital Signs - 24 hr 02/19/25 12:00 02/19/25 14:00 02/19/25 16:00 Temperature 98.2 F Pulse Rate 91 100 64 Respiratory Rate 20 Blood Pressure 120/78 Pulse Oximetry 100 02/19/25 20:00 02/19/25 22:00 02/20/25 00:00 Temperature 97.6 F Pulse Rate 82 81 66 Respiratory Rate 18 Blood Pressure 92/56 L Pulse Oximetry 90 02/20/25 04:00 02/20/25 06:00 Temperature 97.4 F L Pulse Rate 115 H 99 Respiratory Rate 18 Blood Pressure 90/76 L Pulse Oximetry 100 Intake/Output Intake/Output: Intake & Output 02/17/25 02/18/25 02/19/25 02/20/25 23:59 23:59 23:59 23:59 Intake Total 900 2390.0 1150 1000 Output Total 100 600 100 Balance 900 2290.0 550 900 Meds/Results Medications: Active Medications Generic Name Dose Route Start Last Admin Trade Name Freq PRN Reason Stop Dose Admin Acetaminophen 500 mg 02/18/25 01:02 02/20/25 08:46 Acetaminophen 500 Mg Tablet PO 500 mg Q6H PRN Administration Mild Pain (1-3) or Fever Dextrose 12.5 gm 02/17/25 22:05 02/19/25 11:44 Dextrose 50% 25 Gm/50 Ml Syringe IV PUSH 12.5 gm PRN PRN Administration Hypoglycemia Protocol Glucagon 1 mg 02/17/25 22:05 Glucagon For Inj 1 Mg Vial IM PRN PRN Hypoglycemia Protocol Glucose 15 gm 02/17/25 22:05 02/19/25 21:37 Glucose Oral Gel 15 Gm Of Glucse In 37.5 Gm Tube PO 15 gm PRN PRN Administration Hypoglycemia Protocol Dextrose/Sodium Chloride 1,000 mls @ 100 mls/hr 02/20/25 09:55 02/20/25 10:21 Dextrose 5% Sodium Chloride 0.45% IV CONT 100 mls/hr .Q10H KASHIF Administration Magnesium Sulfate 2 gm in 50 mls @ 25 mls/hr 02/20/25 09:52 02/20/25 10:23 Magnesium Sulf 2 Gm/Water 50ml IVPB 02/20/25 11:51 25 mls/hr ONCE ONE Administration Oxycodone/Acetaminophen 1 tab 02/18/25 01:02 02/20/25 10:35 Oxycodone/Acetaminophen (*Crx) 10-325 Mg Tablet PO 1 tab Q6H PRN Administration Pain Rated 7-10 Pantoprazole Sodium 40 mg 02/19/25 12:25 02/20/25 08:46 Pantoprazole 40 Mg Tablet PO 40 mg QAM KASHIF Administration Radiology Results: ITS Impressions Chest X-Ray 02/17/25 19:57 IMPRESSION: No acute cardiopulmonary process. Head CT 02/17/25 21:27 IMPRESSION: No acute intracranial process. Head/Cervical Spine/Facial Bones CT 02/17/25 21:48 IMPRESSION: No acute fracture or traumatic malalignment in the cervical spine. No acute facial bone fracture. Labs Labs: Laboratory Results - last 24 hr 02/19/25 02/19/25 02/19/25 11:35 13:54 16:10 WBC RBC Hgb Hct MCV MCH MCHC RDW Plt Count MPV Immature Gran % (Auto) Neut % (Auto) Lymph % (Auto) [place] % (Auto) Eos % (Auto) Baso % (Auto) Lymph # (Auto) [place] # (Auto) Eos # (Auto) Baso # (Auto) Abs Immat Gran (auto) Absolute Neuts (auto) Absolute Nucleated RBC Nucleated RBC % Sodium Potassium Chloride Carbon Dioxide Anion Gap BUN Creatinine Estim Creat Clear Calc Estimated GFR Glucose POC Capillary Glucose 69 102 97 Calcium Phosphorus Magnesium Total Bilirubin AST ALT Alkaline Phosphatase Total Protein Albumin 02/19/25 02/19/25 02/19/25 20:35 21:12 22:03 WBC RBC Hgb Hct MCV MCH MCHC RDW Plt Count MPV Immature Gran % (Auto) Neut % (Auto) Lymph % (Auto) [place] % (Auto) Eos % (Auto) Baso % (Auto) Lymph # (Auto) [place] # (Auto) Eos # (Auto) Baso # (Auto) Abs Immat Gran (auto) Absolute Neuts (auto) Absolute Nucleated RBC Nucleated RBC % Sodium Potassium Chloride Carbon Dioxide Anion Gap BUN Creatinine Estim Creat Clear Calc Estimated GFR Glucose POC Capillary Glucose 69 63 L 71 Calcium Phosphorus Magnesium Total Bilirubin AST ALT Alkaline Phosphatase Total Protein Albumin 02/20/25 02/20/25 02/20/25 00:06 04:29 07:40 WBC RBC Hgb Hct MCV MCH MCHC RDW Plt Count MPV Immature Gran % (Auto) Neut % (Auto) Lymph % (Auto) [place] % (Auto) Eos % (Auto) Baso % (Auto) Lymph # (Auto) [place] # (Auto) Eos # (Auto) Baso # (Auto) Abs Immat Gran (auto) Absolute Neuts (auto) Absolute Nucleated RBC Nucleated RBC % Sodium Potassium Chloride Carbon Dioxide Anion Gap BUN Creatinine Estim Creat Clear Calc Estimated GFR Glucose POC Capillary Glucose 98 83 105 Calcium Phosphorus Magnesium Total Bilirubin AST ALT Alkaline Phosphatase Total Protein Albumin 02/20/25 09:15 WBC 6.1 RBC 3.38 L Hgb 11.4 L Hct 33.3 L MCV 98.5 MCH 33.7 MCHC 34.2 RDW 15.6 H Plt Count 245 MPV 10.4 Immature Gran % (Auto) 0.7 H Neut % (Auto) 79.8 H Lymph % (Auto) 13.6 L [place] % (Auto) 5.2 Eos % (Auto) 0.5 Baso % (Auto) 0.2 Lymph # (Auto) 0.83 L [place] # (Auto) 0.3 Eos # (Auto) 0.0 Baso # (Auto) 0.0 Abs Immat Gran (auto) 0.04 H Absolute Neuts (auto) 4.9 Absolute Nucleated RBC 0.000 Nucleated RBC % 0.0 Sodium 132 L Potassium 5.8 H Chloride 107 Carbon Dioxide 22 Anion Gap 3 L BUN 8 D Creatinine 0.50 L Estim Creat Clear Calc 45 Estimated GFR > 60 Glucose 111 H POC Capillary Glucose Calcium 7.5 L Phosphorus 1.5 L Magnesium 1.4 L Total Bilirubin 0.7 AST 70 H ALT 51 H Alkaline Phosphatase 67 Total Protein 5.0 L Albumin 2.4 L Quality VTE Prophylaxis VTE prophylaxis: mechanical ordered (SCDs)
[2025-02-20 11:30] LABS: Glucose Point of Care 77 mg/dl (65-105)
--- NOTE | 2025-02-20 14:41 | PCPTNOTE ---
Patient refused treatment this session. Patient states I don't mean to be rude but I can't do this today. I educated patient on the importance of participating in PT to improve strength and mobility. Patient verbalived understanding, however continued to refuse.
[2025-02-20 15:26] LABS: Anion Gap 2 mmol/L (4-12); Blood Urea Nitrogen 8 mg/dL (7-17); Calcium 7.4 mg/dL (8.4-10.2); Carbon Dioxide 23 mmol/L (22-30); Chloride 105 mmol/L (98-107); Estimated CRCL calculation 40 ml/min; Estimated Glomerular Filt Rate > 60; Glucose 107 mg/dL (65-110); Potassium 5.9 mmol/L (3.4-5.0); Sodium 130 mmol/L (137-145)
[2025-02-20 16:07] LABS: Glucose Point of Care 107 mg/dl (65-105)
[2025-02-20] MEDS: SODIUM ZIRCONIUM CYCLOSILICATE 10 GM POWD.PACK PO (17:18)
[2025-02-20 20:43] LABS: Glucose Point of Care 105 mg/dl (65-105)
[2025-02-21] VITALS (10 sets, daily range): BP systolic 110–123; BP diastolic 51–82; PULSE 71–117; RESP 12–20; TEMP 36.1–36.4; O2SAT 97–99
[2025-02-21 00:27] LABS: Glucose Point of Care 114 mg/dl (65-105)
[2025-02-21] MEDS: DEXTROSE 5%/0.45% SOD CHL 1,000 ML 100 ML IV CONT ×3 (00:27→22:06)
[2025-02-21 06:07] LABS: Basophils Percent Auto 0.4 % (0.2-1.2); Eosinophils Absolute Auto 0.1 K/mm3 (0-0.3); Eosinophils Percent Auto 1.3 % (0-4.4); Hematocrit 33.9 % (37.0-47.0); Hemoglobin 11.1 g/dL (12.0-15.0); Immature Granulocyte Absolute 0.02 K/mm3 (0.00-0.031); Immature Granulocyte Percent A 0.4 % (0-0.5); Lymphocytes Absolute Auto 0.75 K/mm3 (0.9-3.2); Lymphocytes Percent Auto 14.3 % (18.3-44.2); Mean Corpuscular HGB Conc 32.7 g/dl (32-36); Mean Corpuscular Hemoglobin 32.6 pg (26-34); Mean Corpuscular Volume 99.7 fl (80-100); Mean Platelet Volume 10.4 fl (7.4-10.4); Monocytes Absolute Auto 0.4 K/mm3 (0.1-0.6); Monocytes Percent Auto 7.8 % (2.6-8.5); Neutrophils Percent Auto 75.8 % (45.5-73.1); Platelet Count Result 228 k/mm3 (150-375); Red Cell Distribution Width 15.3 % (11.5-14.5); White Blood Count 5.3 K/mm3 (4.5-10.0)
[2025-02-21 06:15] LABS: Alanine Aminotransferase 55 U/L (6-35); Albumin Level 2.2 g/dL (3.5-5.1); Alkaline Phosphatase 80 U/L (38-126); Anion Gap 5 mmol/L (4-12); Aspartate Amino Transferase 66 U/L (14-36); Bilirubin,Total 0.8 mg/dL (0.2-1.3); Blood Urea Nitrogen 7 mg/dL (7-17); Calcium 7.3 mg/dL (8.4-10.2); Carbon Dioxide 20 mmol/L (22-30); Chloride 104 mmol/L (98-107); Estimated CRCL calculation 42 ml/min; Estimated Glomerular Filt Rate > 60; Glucose 113 mg/dL (65-110); Magnesium 1.7 mg/dL (1.6-2.3); Phosphorus 2.5 mg/dL (2.5-4.5); Potassium 4.7 mmol/L (3.4-5.0); Sodium 129 mmol/L (137-145)
[2025-02-21 06:17] LABS: Glucose Point of Care 127 mg/dl (65-105)
[2025-02-21 07:40] LABS: Glucose Point of Care 115 mg/dl (65-105)
--- NOTE | 2025-02-21 10:59 | P.PNIM_ITS ---
Progress Note: A&P Assessment and Plan (1) Severe protein-calorie malnutrition: Code(s): E43 - Unspecified severe protein-calorie malnutrition Status: Acute Assessment and Plan: * Protein 5.0. * Ensure Enlive TID with meals. * Watchmaker Apprentice following. * Family does not want to initiate PPN. * Care coordination/hospice consult. * Patient continues to refuse to eat. (2) MIRNA (acute kidney injury): Code(s): N17.9 - Acute kidney failure, unspecified Status: Acute Assessment and Plan: * Creatinine 0.58, improved. * Encourage oral intake. * D5 1/2 NS @ 100 ml/hr. (3) High anion gap metabolic acidosis: Code(s): E87.29 - Other acidosis Status: Acute Assessment and Plan: * Current anion gap is 5, normal. (4) Transaminitis: Code(s): R74.01 - Elevation of levels of liver transaminase levels Status: Acute Assessment and Plan: * AST 66, ALT 55. (5) Rhabdomyolysis: Qualifiers: Rhabdomyolysis type: non-traumatic Qualified Code(s): M62.82 - Rhabdomyolysis Code(s): M62.82 - Rhabdomyolysis Status: Acute Assessment and Plan: * Mild rhabdomyolysis * CPK is 157 * Continue IV fluid (6) Adult failure to thrive: Code(s): R62.7 - Adult failure to thrive Status: Acute Assessment and Plan: * Watchmaker Apprentice consult. * Care coordination for a hospice consult. (7) Dementia: Qualifiers: Dementia type: unspecified type Dementia severity: mild Dementia behavioral or psychological symptom: unspecified whether behavioral, psychotic, or mood disturbance or anxiety Qualified Code(s): F03.A0 - Unspecified dementia, mild, without behavioral disturbance, psychotic disturbance, mood disturbance, and anxiety Code(s): F03.90 - Unspecified dementia, unspecified severity, without behavioral disturbance, psychotic disturbance, mood disturbance, and anxiety Status: Acute (8) Chronic pain disorder: Code(s): G89.4 - Chronic pain syndrome Status: Acute Assessment and Plan: * Percocet 10-325 mg 1 tab PO q 6 PRN. (9) GERD (gastroesophageal reflux disease): Code(s): K21.9 - Gastro-esophageal reflux disease without esophagitis Status: Acute Assessment and Plan: * Pantoprazole 40 mg PO daily. (10) Hyperkalemia: Code(s): E87.5 - Hyperkalemia Status: Acute Assessment and Plan: * Potassium 4.7, improved. Lokelma discontinued. * IV fluids changed to D5 1/2 NS @ 100 ml/hr. * Monitor levels. Plan 79-year-old female with a past medical history of depression, dementia, chronic pain and severe protein calorie malnutrition who presented to the ER from home via EMS after wellness check found the patient on the floor. The patient's was found to be profoundly hypoglycemic with a glucose of 22. Hypoglycemia, dehydration, starvation Patient presented with severe hypoglycemia likely due to severe protein calorie malnutrition ketosis with 2+ ketones in her urine, anion gap acidosis and marked dehydration. continue IV fluid hydration with D5 half-normal saline with 40 of potassium chloride. check Accu-Cheks q.4 hours x3 then transition to q.6 hours and eventually a.c. Severe malnutrition Patient has dementia, possible due to adequate intake and difficulty swallowing Patient passed speech therapy evaluation. Patient does have evidence of starvation Consult dietitian Depression Patient condition is not stable, patient seems aware to her condition. Patient requests to be discharged home, she wants leave AMA. Patient has obvious depression, and had history of suicide attempt Patient came home, had multiple falls recently. Patient cannot take care of herself. We gave her warning of risk of fall and even due to fall and severe malnutrition after leaving AMA, but she still wanted to leave AMA. We need crisis team to re-evaluate the patient when patient became medically stable Consult PT OT social media content specialist for evaluation and assisting placement Subjective Date/time seen: 02/21/25 10:59 Interval history: Patient sitting up in bed. Patient denies pain, shortness of breath, headache, dizziness, nausea, or vomiting. Patient was having urinary retention overnight and a suresh was placed. Patient continues not to want to eat food. Patient reports feeling a little better today. Review of Systems Review of Systems: All systems reviewed & are unremarkable except as noted in HPI and below Exam Const: General: comfortable and no acute distress Resp: Effort & Inspection: normal respiratory effort Auscultation: clear to auscultation bilaterally Cardio: Rate: regular rate Rhythm: regular rhythm Other: Telemetry- SR 84. GI: GI Palp: Yes Soft to palpation Auscultation: normal bowel sounds Neuro: Speech: normal speech Extrem: General: no pedal edema Psych: Affect: normal affect Other: Alert to self and month. Objective Data Vital Signs Vital Signs: Vital Signs - 24 hr 02/20/25 12:00 02/20/25 14:00 02/20/25 16:00 Temperature 97.9 F Pulse Rate 78 112 H 123 H Respiratory Rate 13 Blood Pressure 101/60 Pulse Oximetry 91 Oxygen Delivery 02/20/25 20:03 02/20/25 20:35 02/20/25 21:00 Temperature 97 F L Pulse Rate 89 78 Respiratory Rate 18 Blood Pressure 123/72 Pulse Oximetry 100 100 Oxygen Delivery Room Air 02/21/25 00:02 02/21/25 04:03 02/21/25 05:00 Temperature 96.9 F L Pulse Rate 96 92 76 Respiratory Rate 20 Blood Pressure 123/82 Pulse Oximetry 97 Oxygen Delivery Intake/Output Intake/Output: Intake & Output 02/18/25 02/19/25 02/20/25 02/21/25 23:59 23:59 23:59 23:59 Intake Total 2390.0 1150 1238 1050 Output Total 100 600 100 550 Balance 2290.0 550 1138 500 Meds/Results Medications: Active Medications Generic Name Dose Route Start Last Admin Trade Name Freq PRN Reason Stop Dose Admin Acetaminophen 500 mg 02/18/25 01:02 02/20/25 08:46 Acetaminophen 500 Mg Tablet PO 500 mg Q6H PRN Administration Mild Pain (1-3) or Fever Dextrose 12.5 gm 02/17/25 22:05 02/19/25 11:44 Dextrose 50% 25 Gm/50 Ml Syringe IV PUSH 12.5 gm PRN PRN Administration Hypoglycemia Protocol Glucagon 1 mg 02/17/25 22:05 Glucagon For Inj 1 Mg Vial IM PRN PRN Hypoglycemia Protocol Glucose 15 gm 02/17/25 22:05 02/19/25 21:37 Glucose Oral Gel 15 Gm Of Glucse In 37.5 Gm Tube PO 15 gm PRN PRN Administration Hypoglycemia Protocol Dextrose/Sodium Chloride 1,000 mls @ 100 mls/hr 02/20/25 09:55 02/21/25 00:27 Dextrose 5% Sodium Chloride 0.45% IV CONT 100 mls/hr .Q10H KASHIF Administration Oxycodone/Acetaminophen 1 tab 02/18/25 01:02 02/20/25 23:29 Oxycodone/Acetaminophen (*Crx) 10-325 Mg Tablet PO 1 tab Q6H PRN Administration Pain Rated 7-10 Pantoprazole Sodium 40 mg 02/19/25 12:25 02/21/25 08:51 Pantoprazole 40 Mg Tablet PO Not Given Q[facility] Radiology Results: ITS Impressions Chest X-Ray 02/17/25 19:57 IMPRESSION: No acute cardiopulmonary process. Head CT 02/17/25 21:27 IMPRESSION: No acute intracranial process. Head/Cervical Spine/Facial Bones CT 02/17/25 21:48 IMPRESSION: No acute fracture or traumatic malalignment in the cervical spine. No acute facial bone fracture. Labs Labs: Laboratory Results - last 24 hr 02/20/25 02/20/25 02/20/25 11:25 15:10 16:05 WBC RBC Hgb Hct MCV MCH MCHC RDW Plt Count MPV Immature Gran % (Auto) Neut % (Auto) Lymph % (Auto) [place] % (Auto) Eos % (Auto) Baso % (Auto) Lymph # (Auto) [place] # (Auto) Eos # (Auto) Baso # (Auto) Abs Immat Gran (auto) Absolute Neuts (auto) Absolute Nucleated RBC Nucleated RBC % Sodium 130 L Potassium 5.9 H Chloride 105 Carbon Dioxide 23 Anion Gap 2 L BUN 8 Creatinine 0.57 L Estim Creat Clear Calc 40 Estimated GFR > 60 Glucose 107 POC Capillary Glucose 77 107 H Calcium 7.4 L Phosphorus Magnesium Total Bilirubin AST ALT Alkaline Phosphatase Total Protein Albumin 02/20/25 02/21/25 02/21/25 20:39 00:19 05:05 WBC RBC Hgb Hct MCV MCH MCHC RDW Plt Count MPV Immature Gran % (Auto) Neut % (Auto) Lymph % (Auto) [place] % (Auto) Eos % (Auto) Baso % (Auto) Lymph # (Auto) [place] # (Auto) Eos # (Auto) Baso # (Auto) Abs Immat Gran (auto) Absolute Neuts (auto) Absolute Nucleated RBC Nucleated RBC % Sodium Potassium Chloride Carbon Dioxide Anion Gap BUN Creatinine Estim Creat Clear Calc Estimated GFR Glucose POC Capillary Glucose 105 114 H 127 H Calcium Phosphorus Magnesium Total Bilirubin AST ALT Alkaline Phosphatase Total Protein Albumin 02/21/25 02/21/25 05:46 07:35 WBC 5.3 RBC 3.40 L Hgb 11.1 L Hct 33.9 L MCV 99.7 MCH 32.6 MCHC 32.7 RDW 15.3 H Plt Count 228 MPV 10.4 Immature Gran % (Auto) 0.4 Neut % (Auto) 75.8 H Lymph % (Auto) 14.3 L [place] % (Auto) 7.8 Eos % (Auto) 1.3 Baso % (Auto) 0.4 Lymph # (Auto) 0.75 L [place] # (Auto) 0.4 Eos # (Auto) 0.1 Baso # (Auto) 0.0 Abs Immat Gran (auto) 0.02 Absolute Neuts (auto) 4.0 Absolute Nucleated RBC 0.000 Nucleated RBC % 0.0 Sodium 129 L Potassium 4.7 Chloride 104 Carbon Dioxide 20 L Anion Gap 5 BUN 7 Creatinine 0.58 L Estim Creat Clear Calc 42 Estimated GFR > 60 Glucose 113 H POC Capillary Glucose 115 H Calcium 7.3 L Phosphorus 2.5 Magnesium 1.7 Total Bilirubin 0.8 AST 66 H ALT 55 H Alkaline Phosphatase 80 Total Protein 5.0 L Albumin 2.2 L Quality VTE Prophylaxis VTE prophylaxis: mechanical ordered (SCDs)
[2025-02-21 11:19] LABS: Glucose Point of Care 92 mg/dl (65-105)
[2025-02-21] MEDS: oxyCODONE/ACETAMINOPHEN (*CRX) 10-325 MG TABLET 1 TAB PO (11:19)
--- NOTE | 2025-02-21 11:45 | PCOTNOTE ---
Patient unavailable at this time. Patient having a hospice meeting.
--- NOTE | 2025-02-21 12:13 | PCNFU ---
Nutrition Follow-Up Complete: Severe protein calorie malnutrition related to chronic illness, poor intake as evidenced by intakes <75% needs >1 month; severe muscle wasting and fat loss Goal:Adequate PO intake at least 75% meals and supplements Pt current nutrition is Regular, Ensure Enlive TID. Nutrition recommendation: continue with current plan of care Last recorded weight is 41.6 kg. Bowel Motility: No BM recorded at this time Labs Reviewed: Hgb:11.1, HCT:33.9, Alb:2.2, NA:129, Cr:0.58, Glu:113 Meds Noted: protonix Skin: WNL Additional Notes: Pt on a regular diet, intake minimal, Noted hospice consult. Encourage po intake of meals and supplements. Monitoring intakes, weights, labs, supplement tolerance, plan of care Follow up in 3 days
--- NOTE | 2025-02-21 13:23 | PCPTNOTE ---
Patient refused treatment this session due. Patient states I can't do it. I need to stay where I am.
--- NOTE | 2025-02-21 13:48 | PCOTNOTE ---
Attempted to see Patient at this time. Patient refused to participate, states shes done.
[2025-02-21 16:18] LABS: Glucose Point of Care 99 mg/dl (65-105)
[2025-02-21 20:43] LABS: Glucose Point of Care 92 mg/dl (65-105)
[2025-02-22] VITALS (10 sets, daily range): BP systolic 92–98; BP diastolic 50–58; PULSE 60–124; RESP 14–20; TEMP 36.4–36.9; O2SAT 97–98
[2025-02-22 00:31] LABS: Glucose Point of Care 95 mg/dl (65-105)
[2025-02-22 05:47] LABS: Glucose Point of Care 104 mg/dl (65-105)
[2025-02-22 06:44] LABS: Basophils Percent Auto 0.4 % (0.2-1.2); Eosinophils Absolute Auto 0.1 K/mm3 (0-0.3); Eosinophils Percent Auto 1.9 % (0-4.4); Hematocrit 29.7 % (37.0-47.0); Hemoglobin 9.9 g/dL (12.0-15.0); Immature Granulocyte Absolute 0.01 K/mm3 (0.00-0.031); Immature Granulocyte Percent A 0.2 % (0-0.5); Lymphocytes Absolute Auto 1.03 K/mm3 (0.9-3.2); Lymphocytes Percent Auto 18.2 % (18.3-44.2); Mean Corpuscular HGB Conc 33.3 g/dl (32-36); Mean Corpuscular Hemoglobin 32.8 pg (26-34); Mean Corpuscular Volume 98.3 fl (80-100); Mean Platelet Volume 10.3 fl (7.4-10.4); Monocytes Absolute Auto 0.5 K/mm3 (0.1-0.6); Monocytes Percent Auto 9.2 % (2.6-8.5); Neutrophils Percent Auto 70.1 % (45.5-73.1); Platelet Count Result 190 k/mm3 (150-375); Red Blood Count 3.02 M/mm3 (4.2-5.4); Red Cell Distribution Width 15.1 % (11.5-14.5); White Blood Count 5.7 K/mm3 (4.5-10.0)
[2025-02-22 06:59] LABS: Alanine Aminotransferase 43 U/L (6-35); Albumin Level 1.9 g/dL (3.5-5.1); Alkaline Phosphatase 71 U/L (38-126); Anion Gap 1 mmol/L (4-12); Aspartate Amino Transferase 45 U/L (14-36); Bilirubin,Total 0.8 mg/dL (0.2-1.3); Blood Urea Nitrogen 6 mg/dL (7-17); Carbon Dioxide 24 mmol/L (22-30); Chloride 107 mmol/L (98-107); Estimated CRCL calculation 46 ml/min; Estimated Glomerular Filt Rate > 60; Glucose 94 mg/dL (65-110); Magnesium 1.3 mg/dL (1.6-2.3); Phosphorus 3.1 mg/dL (2.5-4.5); Potassium 3.6 mmol/L (3.4-5.0); Sodium 132 mmol/L (137-145)
[2025-02-22] MEDS: DEXTROSE 5%/0.45% SOD CHL 1,000 ML 100 ML IV CONT (08:23)
[2025-02-22 08:24] LABS: Glucose Point of Care 91 mg/dl (65-105)
[2025-02-22] MEDS: MAGNESIUM SULFATE 3GM/D5W100ML 3 GM/100 ML BAG IVPB (10:22)
[2025-02-22 11:08] LABS: Glucose Point of Care 91 mg/dl (65-105)
--- NOTE | 2025-02-22 12:31 | P.PNIM_ITS ---
Progress Note: A&P Assessment and Plan (1) Severe protein-calorie malnutrition: Code(s): E43 - Unspecified severe protein-calorie malnutrition Status: Acute Assessment and Plan: * Protein 4.0. * Ensure Enlive TID with meals. * Gear Tester following. * Family does not want to initiate PPN. * Care coordination. Hospice consult completed on 02/22, care coordination is trying to get a hold of son. * Patient continues to refuse to eat. (2) MIRNA (acute kidney injury): Code(s): N17.9 - Acute kidney failure, unspecified Status: Acute Assessment and Plan: * Creatinine 0.49, improved. * Encourage oral intake. * D5 1/2 NS @ 150 ml/hr. (3) High anion gap metabolic acidosis: Code(s): E87.29 - Other acidosis Status: Acute Assessment and Plan: * Current anion gap is 1. (4) Transaminitis: Code(s): R74.01 - Elevation of levels of liver transaminase levels Status: Acute Assessment and Plan: * AST 45, ALT 43. (5) Rhabdomyolysis: Qualifiers: Rhabdomyolysis type: non-traumatic Qualified Code(s): M62.82 - Rhabdomyolysis Code(s): M62.82 - Rhabdomyolysis Status: Acute Assessment and Plan: * Mild rhabdomyolysis * CPK is 157 * Continue IV fluid (6) Adult failure to thrive: Code(s): R62.7 - Adult failure to thrive Status: Acute Assessment and Plan: * Gear Tester consult. * Care coordination for a hospice consult. (7) Dementia: Qualifiers: Dementia type: unspecified type Dementia severity: mild Dementia behavioral or psychological symptom: unspecified whether behavioral, psychotic, or mood disturbance or anxiety Qualified Code(s): F03.A0 - Unspecified dementia, mild, without behavioral disturbance, psychotic disturbance, mood disturbance, and anxiety Code(s): F03.90 - Unspecified dementia, unspecified severity, without behavioral disturbance, psychotic disturbance, mood disturbance, and anxiety Status: Acute (8) Chronic pain disorder: Code(s): G89.4 - Chronic pain syndrome Status: Acute Assessment and Plan: * Percocet 10-325 mg 1 tab PO q 6 PRN. (9) GERD (gastroesophageal reflux disease): Code(s): K21.9 - Gastro-esophageal reflux disease without esophagitis Status: Acute Assessment and Plan: * Pantoprazole 40 mg PO daily. (10) Hypomagnesemia: Code(s): E83.42 - Hypomagnesemia Status: Inactive Assessment and Plan: * Magnesium 1.3. * Magnesium Sulfate 3 gram IVPB x1. * Trend magnesium levels. Plan 79-year-old female with a past medical history of depression, dementia, chronic pain and severe protein calorie malnutrition who presented to the ER from home via EMS after wellness check found the patient on the floor. The patient's was found to be profoundly hypoglycemic with a glucose of 22. Hypoglycemia, dehydration, starvation Patient presented with severe hypoglycemia likely due to severe protein calorie malnutrition ketosis with 2+ ketones in her urine, anion gap acidosis and marked dehydration. continue IV fluid hydration with D5 half-normal saline with 40 of potassium chloride. check Accu-Cheks q.4 hours x3 then transition to q.6 hours and eventually a.c. Severe malnutrition Patient has dementia, possible due to adequate intake and difficulty swallowing Patient passed speech therapy evaluation. Patient does have evidence of starvation Consult dietitian Depression Patient condition is not stable, patient seems aware to her condition. Patient requests to be discharged home, she wants leave AMA. Patient has obvious depression, and had history of suicide attempt Patient came home, had multiple falls recently. Patient cannot take care of herself. We gave her warning of risk of fall and even due to fall and severe malnutrition after leaving AMA, but she still wanted to leave AMA. We need crisis team to re-evaluate the patient when patient became medically stable Consult PT OT social and political studies professor for evaluation and assisting placement Subjective Date/time seen: 02/22/25 12:31 Interval history: Patient wanting to try to eat her lunch. Patient is agreeable to try a strawberry Ensure. Patient denies chest pain, palpitations, headache, dizziness, nausea, or vomiting. Review of Systems Review of Systems: All systems reviewed & are unremarkable except as noted in HPI and below Exam Const: General: comfortable and no acute distress Resp: Effort & Inspection: normal respiratory effort Auscultation: clear to auscultation bilaterally Cardio: Rate: tachycardic Other: ST 109 GI: GI Palp: Yes Soft to palpation Auscultation: normal bowel sounds Urinary Catheter: Urinary Catheter: patent and draining Neuro: Speech: normal speech Extrem: General: no pedal edema Psych: Affect: normal affect Other: Alert to self Objective Data Vital Signs Vital Signs: Vital Signs - 24 hr 02/21/25 14:00 02/21/25 16:00 02/21/25 20:00 Temperature 97.6 F Pulse Rate 71 106 H 92 Respiratory Rate 12 Blood Pressure 110/52 L Pulse Oximetry 99 Oxygen Delivery 02/21/25 20:40 02/21/25 20:57 02/22/25 00:02 Temperature 97.3 F L Pulse Rate 90 93 Respiratory Rate 18 Blood Pressure 110/51 L Pulse Oximetry 99 99 Oxygen Delivery Room Air 02/22/25 04:02 02/22/25 05:35 02/22/25 08:00 Temperature 97.5 F L Pulse Rate 106 H 95 Respiratory Rate 20 Blood Pressure 98/50 L Pulse Oximetry 97 Oxygen Delivery Room Air Intake/Output Intake/Output: Intake & Output 02/19/25 02/20/25 02/21/25 02/22/25 23:59 23:59 23:59 23:59 Intake Total 1150 1238 3460 1100 Output Total 294 548 8519 1800 Balance 550 1138 1560 -700 Meds/Results Medications: Active Medications Generic Name Dose Route Start Last Admin Trade Name Freq PRN Reason Stop Dose Admin Acetaminophen 500 mg 02/18/25 01:02 02/20/25 08:46 Acetaminophen 500 Mg Tablet PO 500 mg Q6H PRN Administration Mild Pain (1-3) or Fever Dextrose 12.5 gm 02/17/25 22:05 02/19/25 11:44 Dextrose 50% 25 Gm/50 Ml Syringe IV PUSH 12.5 gm PRN PRN Administration Hypoglycemia Protocol Glucagon 1 mg 02/17/25 22:05 Glucagon For Inj 1 Mg Vial IM PRN PRN Hypoglycemia Protocol Glucose 15 gm 02/17/25 22:05 02/19/25 21:37 Glucose Oral Gel 15 Gm Of Glucse In 37.5 Gm Tube PO 15 gm PRN PRN Administration Hypoglycemia Protocol Dextrose/Sodium Chloride 1,000 mls @ 100 mls/hr 02/20/25 09:55 02/22/25 08:23 Dextrose 5% Sodium Chloride 0.45% IV CONT 100 mls/hr .Q10H KASHIF Administration Oxycodone/Acetaminophen 1 tab 02/18/25 01:02 02/21/25 11:19 Oxycodone/Acetaminophen (*Crx) 10-325 Mg Tablet PO 1 tab Q6H PRN Administration Pain Rated 7-10 Pantoprazole Sodium 40 mg 02/19/25 12:25 02/22/25 09:31 Pantoprazole 40 Mg Tablet PO [facility] Results: ITS Impressions Chest X-Ray 02/17/25 19:57 IMPRESSION: No acute cardiopulmonary process. Head CT 02/17/25 21:27 IMPRESSION: No acute intracranial process. Head/Cervical Spine/Facial Bones CT 02/17/25 21:48 IMPRESSION: No acute fracture or traumatic malalignment in the cervical spine. No acute facial bone fracture. Labs Labs: Laboratory Results - last 24 hr 02/21/25 02/21/25 02/22/25 16:13 20:37 00:29 WBC RBC Hgb Hct MCV MCH MCHC RDW Plt Count MPV Immature Gran % (Auto) Neut % (Auto) Lymph % (Auto) [place] % (Auto) Eos % (Auto) Baso % (Auto) Lymph # (Auto) [place] # (Auto) Eos # (Auto) Baso # (Auto) Abs Immat Gran (auto) Absolute Neuts (auto) Absolute Nucleated RBC Nucleated RBC % Sodium Potassium Chloride Carbon Dioxide Anion Gap BUN Creatinine Estim Creat Clear Calc Estimated GFR Glucose POC Capillary Glucose 99 92 95 Calcium Phosphorus Magnesium Total Bilirubin AST ALT Alkaline Phosphatase Total Protein Albumin 02/22/25 02/22/25 02/22/25 05:38 06:34 07:38 WBC 5.7 RBC 3.02 L Hgb 9.9 L Hct 29.7 L MCV 98.3 MCH 32.8 MCHC 33.3 RDW 15.1 H Plt Count 190 MPV 10.3 Immature Gran % (Auto) 0.2 Neut % (Auto) 70.1 Lymph % (Auto) 18.2 L [place] % (Auto) 9.2 H Eos % (Auto) 1.9 Baso % (Auto) 0.4 Lymph # (Auto) 1.03 [place] # (Auto) 0.5 Eos # (Auto) 0.1 Baso # (Auto) 0.0 Abs Immat Gran (auto) 0.01 Absolute Neuts (auto) 4.0 Absolute Nucleated RBC 0.000 Nucleated RBC % 0.0 Sodium 132 L Potassium 3.6 Chloride 107 Carbon Dioxide 24 Anion Gap 1 L BUN 6 L Creatinine 0.49 L Estim Creat Clear Calc 46 Estimated GFR > 60 Glucose 94 POC Capillary Glucose 104 91 Calcium 7.0 L Phosphorus 3.1 Magnesium 1.3 L Total Bilirubin 0.8 AST 45 H ALT 43 H Alkaline Phosphatase 71 Total Protein 4.0 L Albumin 1.9 L 02/22/25 11:03 WBC RBC Hgb Hct MCV MCH MCHC RDW Plt Count MPV Immature Gran % (Auto) Neut % (Auto) Lymph % (Auto) [place] % (Auto) Eos % (Auto) Baso % (Auto) Lymph # (Auto) [place] # (Auto) Eos # (Auto) Baso # (Auto) Abs Immat Gran (auto) Absolute Neuts (auto) Absolute Nucleated RBC Nucleated RBC % Sodium Potassium Chloride Carbon Dioxide Anion Gap BUN Creatinine Estim Creat Clear Calc Estimated GFR Glucose POC Capillary Glucose 91 Calcium Phosphorus Magnesium Total Bilirubin AST ALT Alkaline Phosphatase Total Protein Albumin Quality VTE Prophylaxis VTE prophylaxis: mechanical ordered (SCDs)
[2025-02-22 15:54] LABS: Magnesium 2.6 mg/dL (1.6-2.3)
[2025-02-22 16:06] LABS: Glucose Point of Care 116 mg/dl (65-105)
[2025-02-22] MEDS: oxyCODONE/ACETAMINOPHEN (*CRX) 10-325 MG TABLET 1 TAB PO (18:55)
[2025-02-22 20:44] LABS: Glucose Point of Care 108 mg/dl (65-105)
[2025-02-22] MEDS: DEXTROSE 5%/0.45% SOD CHL 1,000 ML 150 ML IV CONT (21:01)
[2025-02-23] VITALS (11 sets, daily range): BP systolic 101–103; BP diastolic 40–59; PULSE 4–116; RESP 18; TEMP 36.6–36.9; O2SAT 98–99
[2025-02-23 00:38] LABS: Glucose Point of Care 113 mg/dl (65-105)
[2025-02-23] MEDS: oxyCODONE/ACETAMINOPHEN (*CRX) 10-325 MG TABLET 1 TAB PO ×2 (03:37→13:10)
[2025-02-23] MEDS: DEXTROSE 5%/0.45% SOD CHL 1,000 ML 150 ML IV CONT ×2 (04:19→13:09)
[2025-02-23 04:32] LABS: Glucose Point of Care 98 mg/dl (65-105)
[2025-02-23 07:17] LABS: Basophils Percent Auto 0.2 % (0.2-1.2); Eosinophils Absolute Auto 0.1 K/mm3 (0-0.3); Eosinophils Percent Auto 1.1 % (0-4.4); Hematocrit 29.8 % (37.0-47.0); Hemoglobin 9.6 g/dL (12.0-15.0); Immature Granulocyte Absolute 0.03 K/mm3 (0.00-0.031); Immature Granulocyte Percent A 0.6 % (0-0.5); Lymphocytes Absolute Auto 1.09 K/mm3 (0.9-3.2); Lymphocytes Percent Auto 20.2 % (18.3-44.2); Mean Corpuscular HGB Conc 32.2 g/dl (32-36); Mean Corpuscular Hemoglobin 33.1 pg (26-34); Mean Corpuscular Volume 102.8 fl (80-100); Mean Platelet Volume 10.8 fl (7.4-10.4); Monocytes Absolute Auto 0.5 K/mm3 (0.1-0.6); Monocytes Percent Auto 9.3 % (2.6-8.5); Neutrophils Absolute Auto 3.7 K/mm3 (1.3-6.7); Neutrophils Percent Auto 68.6 % (45.5-73.1); Platelet Count Result 151 k/mm3 (150-375); Red Cell Distribution Width 14.8 % (11.5-14.5); White Blood Count 5.4 K/mm3 (4.5-10.0)
[2025-02-23 07:33] LABS: Alanine Aminotransferase 38 U/L (6-35); Albumin Level 1.8 g/dL (3.5-5.1); Alkaline Phosphatase 69 U/L (38-126); Anion Gap 5 mmol/L (4-12); Aspartate Amino Transferase 45 U/L (14-36); Bilirubin,Total 0.8 mg/dL (0.2-1.3); Blood Urea Nitrogen 5 mg/dL (7-17); Calcium 6.7 mg/dL (8.4-10.2); Carbon Dioxide 20 mmol/L (22-30); Chloride 105 mmol/L (98-107); Estimated CRCL calculation 50 ml/min; Estimated Glomerular Filt Rate > 60; Glucose 98 mg/dL (65-110); Magnesium 1.9 mg/dL (1.6-2.3); Phosphorus 3.3 mg/dL (2.5-4.5); Potassium 3.5 mmol/L (3.4-5.0); Sodium 130 mmol/L (137-145)
[2025-02-23] MEDS: ALBUMIN HUMAN 25% 25 GM/100 ML 100 ML IVPB (10:46)
--- NOTE | 2025-02-23 11:56 | P.PNIM_ITS ---
Progress Note: A&P Assessment and Plan (1) Severe protein-calorie malnutrition: Code(s): E43 - Unspecified severe protein-calorie malnutrition Status: Acute Assessment and Plan: * Protein 4.0. * Ensure Enlive TID with meals. * Dandy Tender following. * Family does not want to initiate PPN. * Care coordination. Hospice consult completed on 02/22, care coordination is trying to get a hold of son. * Patient ate 30% of breakfast. (2) MIRNA (acute kidney injury): Code(s): N17.9 - Acute kidney failure, unspecified Status: Acute Assessment and Plan: * Creatinine 0.46, improved. * Encourage oral intake. * D5 1/2 NS @ 150 ml/hr. (3) High anion gap metabolic acidosis: Code(s): E87.29 - Other acidosis Status: Acute Assessment and Plan: * Current anion gap is 5. (4) Transaminitis: Code(s): R74.01 - Elevation of levels of liver transaminase levels Status: Acute Assessment and Plan: * AST 45, ALT 38. (5) Rhabdomyolysis: Qualifiers: Rhabdomyolysis type: non-traumatic Qualified Code(s): M62.82 - Rhabdomyolysis Code(s): M62.82 - Rhabdomyolysis Status: Acute Assessment and Plan: * Mild rhabdomyolysis * CPK is 157 * Continue IV fluid (6) Adult failure to thrive: Code(s): R62.7 - Adult failure to thrive Status: Acute Assessment and Plan: * Dandy Tender consult. * Care coordination for a hospice consult. (7) Hypoalbuminemia due to protein-calorie malnutrition: Code(s): E88.09 - Other disorders of plasma-protein metabolism, not elsewhere classified; E46 - Unspecified protein-calorie malnutrition Status: Acute Assessment and Plan: * Albumin 1.8. * Albumin 25 gram given x 1. * Monitor levels. (8) Dementia: Qualifiers: Dementia type: unspecified type Dementia severity: mild Dementia behavioral or psychological symptom: unspecified whether behavioral, psychotic, or mood disturbance or anxiety Qualified Code(s): F03.A0 - Unspecified dementia, mild, without behavioral disturbance, psychotic disturbance, mood disturbance, and anxiety Code(s): F03.90 - Unspecified dementia, unspecified severity, without behavioral disturbance, psychotic disturbance, mood disturbance, and anxiety Status: Acute (9) Chronic pain disorder: Code(s): G89.4 - Chronic pain syndrome Status: Acute Assessment and Plan: * Percocet 10-325 mg 1 tab PO q 6 PRN. (10) Hypomagnesemia: Code(s): E83.42 - Hypomagnesemia Status: Inactive Assessment and Plan: * Magnesium 1.9, improved. * Trend magnesium levels. (11) Hypocalcemia: Code(s): E83.51 - Hypocalcemia Status: Acute Assessment and Plan: * Calcium 6.7. * Calcium Gluconate 1,000 mg IVPB 1. * Monitor level. (12) GERD (gastroesophageal reflux disease): Code(s): K21.9 - Gastro-esophageal reflux disease without esophagitis Status: Acute Assessment and Plan: * Pantoprazole 40 mg PO daily. Plan 79-year-old female with a past medical history of depression, dementia, chronic pain and severe protein calorie malnutrition who presented to the ER from home via EMS after wellness check found the patient on the floor. The patient's was found to be profoundly hypoglycemic with a glucose of 22. Hypoglycemia, dehydration, starvation Patient presented with severe hypoglycemia likely due to severe protein calorie malnutrition ketosis with 2+ ketones in her urine, anion gap acidosis and marked dehydration. continue IV fluid hydration with D5 half-normal saline with 40 of potassium chloride. check Accu-Cheks q.4 hours x3 then transition to q.6 hours and eventually a.c. Severe malnutrition Patient has dementia, possible due to adequate intake and difficulty swallowing Patient passed speech therapy evaluation. Patient does have evidence of starvation Consult dietitian Depression Patient condition is not stable, patient seems aware to her condition. Patient requests to be discharged home, she wants leave AMA. Patient has obvious depression, and had history of suicide attempt Patient came home, had multiple falls recently. Patient cannot take care of herself. We gave her warning of risk of fall and even due to fall and severe malnutrition after leaving AMA, but she still wanted to leave AMA. We need crisis team to re-evaluate the patient when patient became medically stable Consult PT OT foster care social worker for evaluation and assisting placement Subjective Date/time seen: 02/23/25 11:56 Interval history: Patient ate 30% of breakfast this morning and reports starting to get an appetite. Patient denies chest pain, palpitations, headache, nausea, vomiting, or dizziness. Review of Systems Review of Systems: All systems reviewed & are unremarkable except as noted in HPI and below Exam Const: General: comfortable and no acute distress Resp: Effort & Inspection: normal respiratory effort Auscultation: clear to auscultation bilaterally Cardio: Rate: regular rate Rhythm: regular rhythm GI: GI Palp: Yes Soft to palpation Other: Hypoactive bowel sounds Neuro: Speech: normal speech Extrem: General: no pedal edema Psych: Affect: normal affect Other: Oriented to person, hospital, and January. Objective Data Vital Signs Vital Signs: Vital Signs - 24 hr 02/22/25 12:00 02/22/25 14:00 02/22/25 16:00 Temperature 98.5 F Pulse Rate 121 H 94 124 H Respiratory Rate 14 Blood Pressure 95/58 L Pulse Oximetry 98 Oxygen Delivery 02/22/25 20:02 02/22/25 20:34 02/22/25 20:58 Temperature 98.4 F Pulse Rate 104 H 60 Respiratory Rate 17 Blood Pressure 92/51 L Pulse Oximetry 97 97 Oxygen Delivery Room Air 02/23/25 00:02 02/23/25 04:02 02/23/25 06:20 Temperature 98.2 F Pulse Rate 80 83 81 Respiratory Rate 18 Blood Pressure 102/59 L Pulse Oximetry 98 Oxygen Delivery 02/23/25 08:00 02/23/25 10:14 Temperature Pulse Rate Respiratory Rate Blood Pressure Pulse Oximetry 99 Oxygen Delivery Room Air Room Air Intake/Output Intake/Output: Intake & Output 02/20/25 02/21/25 02/22/25 02/23/25 23:59 23:59 23:59 23:59 Intake Total 1238 3460 2490 1360 Output Total 100 1900 2350 1500 Balance 1138 1560 140 -140 Meds/Results Medications: Active Medications Generic Name Dose Route Start Last Admin Trade Name Freq PRN Reason Stop Dose Admin Acetaminophen 500 mg 02/18/25 01:02 02/20/25 08:46 Acetaminophen 500 Mg Tablet PO 500 mg Q6H PRN Administration Mild Pain (1-3) or Fever Dextrose 12.5 gm 02/17/25 22:05 02/19/25 11:44 Dextrose 50% 25 Gm/50 Ml Syringe IV PUSH 12.5 gm PRN PRN Administration Hypoglycemia Protocol Glucagon 1 mg 02/17/25 22:05 Glucagon For Inj 1 Mg Vial IM PRN PRN Hypoglycemia Protocol Glucose 15 gm 02/17/25 22:05 02/19/25 21:37 Glucose Oral Gel 15 Gm Of Glucse In 37.5 Gm Tube PO 15 gm PRN PRN Administration Hypoglycemia Protocol Dextrose/Sodium Chloride 1,000 mls @ 150 mls/hr 02/20/25 09:55 02/23/25 04:19 Dextrose 5% Sodium Chloride 0.45% IV CONT 150 mls/hr .Q6H40M KASHIF Administration Albumin Human 100 mls @ 60 mls/hr 02/23/25 10:25 02/23/25 10:46 Albutein IVPB 02/23/25 12:04 60 mls/hr ONCE ONE Administration Oxycodone/Acetaminophen 1 tab 02/18/25 01:02 02/23/25 03:37 Oxycodone/Acetaminophen (*Crx) 10-325 Mg Tablet PO 1 tab Q6H PRN Administration Pain Rated 7-10 Pantoprazole Sodium 40 mg 02/19/25 12:25 02/23/25 08:09 Pantoprazole 40 Mg Tablet PO Not Given [facility] Radiology Results: ITS Impressions Chest X-Ray 02/17/25 19:57 IMPRESSION: No acute cardiopulmonary process. Head CT 02/17/25 21:27 IMPRESSION: No acute intracranial process. Head/Cervical Spine/Facial Bones CT 02/17/25 21:48 IMPRESSION: No acute fracture or traumatic malalignment in the cervical spine. No acute facial bone fracture. Labs Labs: Laboratory Results - last 24 hr 02/22/25 02/22/25 02/22/25 15:30 16:00 20:37 WBC RBC Hgb Hct MCV MCH MCHC RDW Plt Count MPV Immature Gran % (Auto) Neut % (Auto) Lymph % (Auto) [place] % (Auto) Eos % (Auto) Baso % (Auto) Lymph # (Auto) [place] # (Auto) Eos # (Auto) Baso # (Auto) Abs Immat Gran (auto) Absolute Neuts (auto) Absolute Nucleated RBC Nucleated RBC % Sodium Potassium Chloride Carbon Dioxide Anion Gap BUN Creatinine Estim Creat Clear Calc Estimated GFR Glucose POC Capillary Glucose 116 H 108 H Calcium Phosphorus Magnesium 2.6 H Total Bilirubin AST ALT Alkaline Phosphatase Total Protein Albumin 03/30/25 03/30/25 03/30/25 00:34 04:30 06:59 WBC 5.4 RBC 2.90 L Hgb 9.6 L Hct 29.8 L MCV 102.8 H MCH 33.1 MCHC 32.2 RDW 14.8 H Plt Count 151 MPV 10.8 H Immature Gran % (Auto) 0.6 H Neut % (Auto) 68.6 Lymph % (Auto) 20.2 [place] % (Auto) 9.3 H Eos % (Auto) 1.1 Baso % (Auto) 0.2 Lymph # (Auto) 1.09 [place] # (Auto) 0.5 Eos # (Auto) 0.1 Baso # (Auto) 0.0 Abs Immat Gran (auto) 0.03 Absolute Neuts (auto) 3.7 Absolute Nucleated RBC 0.000 Nucleated RBC % 0.0 Sodium 130 L Potassium 3.5 Chloride 105 Carbon Dioxide 20 L Anion Gap 5 BUN 5 L Creatinine 0.46 L Estim Creat Clear Calc 50 Estimated GFR > 60 Glucose 98 POC Capillary Glucose 113 H 98 Calcium 6.7 L Phosphorus 3.3 Magnesium 1.9 Total Bilirubin 0.8 AST 45 H ALT 38 H Alkaline Phosphatase 69 Total Protein 4.0 L Albumin 1.8 L Quality VTE Prophylaxis VTE prophylaxis: mechanical ordered (SCDs)
[2025-02-23 12:57] LABS: Glucose Point of Care 79 mg/dl (65-105)
[2025-02-23] MEDS: CALCIUM GLUC 1,000 MG/NS 50 ML 1,000 MG/50 ML BAG 100 MG IVPB (13:09)
[2025-02-23 16:40] LABS: Glucose Point of Care 93 mg/dl (65-105)
[2025-02-24] VITALS (9 sets, daily range): BP systolic 94–116; BP diastolic 53–64; PULSE 87–120; RESP 16–18; TEMP 36.8; O2SAT 99–100
[2025-02-24 03:21] LABS: Glucose Point of Care 101 mg/dl (65-105)
[2025-02-24 03:28] LABS: Glucose Point of Care 109 mg/dl (65-105)
[2025-02-24] MEDS: DEXTROSE 5%/0.45% SOD CHL 1,000 ML 150 ML IV CONT ×2 (06:06→16:20)
[2025-02-24 06:28] LABS: Basophils Percent Auto 0.8 % (0.2-1.2); Eosinophils Absolute Auto 0.1 K/mm3 (0-0.3); Hematocrit 27.5 % (37.0-47.0); Hemoglobin 9.4 g/dL (12.0-15.0); Immature Granulocyte Absolute 0.02 K/mm3 (0.00-0.031); Immature Granulocyte Percent A 0.5 % (0-0.5); Lymphocytes Absolute Auto 1.13 K/mm3 (0.9-3.2); Lymphocytes Percent Auto 28.3 % (18.3-44.2); Mean Corpuscular HGB Conc 34.2 g/dl (32-36); Mean Corpuscular Hemoglobin 34.1 pg (26-34); Mean Corpuscular Volume 99.6 fl (80-100); Mean Platelet Volume 10.7 fl (7.4-10.4); Monocytes Absolute Auto 0.3 K/mm3 (0.1-0.6); Neutrophils Absolute Auto 2.4 K/mm3 (1.3-6.7); Neutrophils Percent Auto 60.4 % (45.5-73.1); Platelet Count Result 186 k/mm3 (150-375); Red Blood Count 2.76 M/mm3 (4.2-5.4); Red Cell Distribution Width 14.6 % (11.5-14.5)
[2025-02-24 06:42] LABS: Alanine Aminotransferase 33 U/L (6-35); Alkaline Phosphatase 81 U/L (38-126); Anion Gap 4 mmol/L (4-12); Aspartate Amino Transferase 33 U/L (14-36); Bilirubin,Total 0.8 mg/dL (0.2-1.3); Blood Urea Nitrogen 3 mg/dL (7-17); Calcium 7.3 mg/dL (8.4-10.2); Carbon Dioxide 21 mmol/L (22-30); Chloride 108 mmol/L (98-107); Estimated CRCL calculation 53 ml/min; Estimated Glomerular Filt Rate > 60; Glucose 79 mg/dL (65-110); Magnesium 1.5 mg/dL (1.6-2.3); Phosphorus 3.8 mg/dL (2.5-4.5); Potassium 3.3 mmol/L (3.4-5.0); Sodium 133 mmol/L (137-145)
[2025-02-24] MEDS: oxyCODONE/ACETAMINOPHEN (*CRX) 10-325 MG TABLET 1 TAB PO ×2 (08:22→19:54)
[2025-02-24 08:56] LABS: Glucose Point of Care 100 mg/dl (65-105)
[2025-02-24] MEDS: MAGNESIUM SULF 2 GM/WATER 50ML 2 GM/50 ML BAG IVPB (09:57)
[2025-02-24 11:26] LABS: Glucose Point of Care 84 mg/dl (65-105)
--- NOTE | 2025-02-24 11:50 | P.PNIM_ITS ---
Progress Note: A&P Assessment and Plan (1) Severe protein-calorie malnutrition: Code(s): E43 - Unspecified severe protein-calorie malnutrition Status: Acute Assessment and Plan: * Protein 4.0. * Ensure Enlive TID with meals. * Backfiller following. * Family does not want to initiate PPN. * Care coordination. Hospice consult completed on 02/22, care coordination is trying to get a hold of son. * Care coordination sent referral to [facility]. Plan would be to discharge to [facility] with [facility]. (2) MIRNA (acute kidney injury): Code(s): N17.9 - Acute kidney failure, unspecified Status: Acute Assessment and Plan: * Creatinine 0.43, improved. * Encourage oral intake. * D5 1/2 NS @ 150 ml/hr. (3) High anion gap metabolic acidosis: Code(s): E87.29 - Other acidosis Status: Acute Assessment and Plan: * Current anion gap is 4. (4) Transaminitis: Code(s): R74.01 - Elevation of levels of liver transaminase levels Status: Acute Assessment and Plan: * AST 33, ALT 33. (5) Rhabdomyolysis: Qualifiers: Rhabdomyolysis type: non-traumatic Qualified Code(s): M62.82 - Rhabdomyolysis Code(s): M62.82 - Rhabdomyolysis Status: Acute Assessment and Plan: * Mild rhabdomyolysis * CPK is 157 * Continue IV fluid (6) Adult failure to thrive: Code(s): R62.7 - Adult failure to thrive Status: Acute Assessment and Plan: * Backfiller consult. * Care coordination for a hospice consult. (7) Hypoalbuminemia due to protein-calorie malnutrition: Code(s): E88.09 - Other disorders of plasma-protein metabolism, not elsewhere classified; E46 - Unspecified protein-calorie malnutrition Status: Acute Assessment and Plan: * Albumin 2.0 * Monitor levels. (8) Dementia: Qualifiers: Dementia type: unspecified type Dementia severity: mild Dementia behavioral or psychological symptom: unspecified whether behavioral, psychotic, or mood disturbance or anxiety Qualified Code(s): F03.A0 - Unspecified dementia, mild, without behavioral disturbance, psychotic disturbance, mood disturbance, and anxiety Code(s): F03.90 - Unspecified dementia, unspecified severity, without behavioral disturbance, psychotic disturbance, mood disturbance, and anxiety Status: Acute (9) Chronic pain disorder: Code(s): G89.4 - Chronic pain syndrome Status: Acute Assessment and Plan: * Percocet 10-325 mg 1 tab PO q 6 PRN. (10) Hypomagnesemia: Code(s): E83.42 - Hypomagnesemia Status: Inactive Assessment and Plan: * Magnesium 1.5. * Magnesium sulfate 2 gram IVPB x1 given. * Trend magnesium levels. (11) Hypocalcemia: Code(s): E83.51 - Hypocalcemia Status: Acute Assessment and Plan: * Calcium 7.3, improving. * Monitor level. (12) GERD (gastroesophageal reflux disease): Code(s): K21.9 - Gastro-esophageal reflux disease without esophagitis Status: Acute Assessment and Plan: * Pantoprazole 40 mg PO daily. Plan 79-year-old female with a past medical history of depression, dementia, chronic pain and severe protein calorie malnutrition who presented to the ER from home via EMS after wellness check found the patient on the floor. The patient's was found to be profoundly hypoglycemic with a glucose of 22. Hypoglycemia, dehydration, starvation Patient presented with severe hypoglycemia likely due to severe protein calorie malnutrition ketosis with 2+ ketones in her urine, anion gap acidosis and marked dehydration. continue IV fluid hydration with D5 half-normal saline with 40 of potassium chloride. check Accu-Cheks q.4 hours x3 then transition to q.6 hours and eventually a.c. Severe malnutrition Patient has dementia, possible due to adequate intake and difficulty swallowing Patient passed speech therapy evaluation. Patient does have evidence of starvation Consult dietitian Depression Patient condition is not stable, patient seems aware to her condition. Patient requests to be discharged home, she wants leave AMA. Patient has obvious depression, and had history of suicide attempt Patient came home, had multiple falls recently. Patient cannot take care of herself. We gave her warning of risk of fall and even due to fall and severe malnutrition after leaving AMA, but she still wanted to leave AMA. We need crisis team to re-evaluate the patient when patient became medically stable Consult PT OT social and political studies professor for evaluation and assisting placement Subjective Date/time seen: 02/24/25 11:50 Interval history: Patient sitting up in bed. Patient denies nausea, headache, dizziness, or shortness of breath. Patient reports pain in her back is an 8 , constant, and aching. Review of Systems Review of Systems: All systems reviewed & are unremarkable except as noted in HPI and below Exam Const: General: no acute distress and uncomfortable Resp: Effort & Inspection: normal respiratory effort Auscultation: clear to auscultation bilaterally Cardio: Rate: regular rate Rhythm: regular rhythm GI: GI Palp: Yes Soft to palpation Other: hypoactive bowel sounds. Neuro: Speech: normal speech Extrem: General: no pedal edema Psych: Affect: normal affect Other: Oriented to person and hospital Objective Data Vital Signs Vital Signs: Vital Signs - 24 hr 02/23/25 12:00 02/23/25 14:00 02/23/25 16:00 Temperature 97.8 F Pulse Rate 77 4 L 88 Respiratory Rate 18 Blood Pressure 101/51 L Pulse Oximetry 99 Oxygen Delivery 02/23/25 20:03 02/23/25 21:16 02/23/25 22:00 Temperature 98.4 F Pulse Rate 83 84 Respiratory Rate 18 Blood Pressure 103/40 L Pulse Oximetry 99 98 Oxygen Delivery Room Air 02/24/25 00:02 02/24/25 04:03 02/24/25 06:00 Temperature 98.3 F Pulse Rate 92 88 91 Respiratory Rate 18 Blood Pressure 116/53 L Pulse Oximetry 99 Oxygen Delivery 02/24/25 08:00 Temperature Pulse Rate Respiratory Rate Blood Pressure Pulse Oximetry Oxygen Delivery Room Air Intake/Output Intake/Output: Intake & Output 02/21/25 02/22/25 02/23/25 02/24/25 23:59 23:59 23:59 23:59 Intake Total 3460 2490 2510 1418 Output Total 1900 2350 2350 2200 Balance 1560 140 160 -782 Meds/Results Medications: Active Medications Generic Name Dose Route Start Last Admin Trade Name Freq PRN Reason Stop Dose Admin Acetaminophen 500 mg 02/18/25 01:02 02/20/25 08:46 Acetaminophen 500 Mg Tablet PO 500 mg Q6H PRN Administration Mild Pain (1-3) or Fever Bisacodyl 10 mg 02/23/25 12:38 Bisacodyl 10 Mg Suppository RECTAL QAM PRN Constipation Dextrose 12.5 gm 02/17/25 22:05 02/19/25 11:44 Dextrose 50% 25 Gm/50 Ml Syringe IV PUSH 12.5 gm PRN PRN Administration Hypoglycemia Protocol Docusate Sodium 100 mg 02/23/25 12:38 Docusate Sodium 100 Mg Capsule PO Q12H PRN Constipation Glucagon 1 mg 02/17/25 22:05 Glucagon For Inj 1 Mg Vial IM PRN PRN Hypoglycemia Protocol Glucose 15 gm 02/17/25 22:05 02/19/25 21:37 Glucose Oral Gel 15 Gm Of Glucse In 37.5 Gm Tube PO 15 gm PRN PRN Administration Hypoglycemia Protocol Dextrose/Sodium Chloride 1,000 mls @ 150 mls/hr 02/20/25 09:55 02/24/25 09:13 Dextrose 5% Sodium Chloride 0.45% IV CONT Not Given .Q6H40M [facility] Potassium Chloride 40 meq/ 520 mls @ 130 mls/hr 02/24/25 09:30 Sodium Chloride IVPB 02/24/25 13:29 ONCE ONE Ondansetron HCl 4 mg 02/23/25 12:40 Ondansetron Inj 4 Mg/2 Ml Vial IV PUSH Q6H PRN Nausea And Vomiting Oxycodone/Acetaminophen 1 tab 02/18/25 01:02 02/24/25 08:22 Oxycodone/Acetaminophen (*Crx) 10-325 Mg Tablet PO 1 tab Q6H PRN Administration Pain Rated 7-10 Pantoprazole Sodium 40 mg 02/19/25 12:25 02/24/25 09:13 Pantoprazole 40 Mg Tablet PO Not Given QAM KASHIF Polyethylene Glycol 17 gm 02/23/25 12:38 Polyethylene Glycol 3350 17 Gm Powd.Pack PO QAM PRN Constipation Radiology Results: ITS Impressions Chest X-Ray 02/17/25 19:57 IMPRESSION: No acute cardiopulmonary process. Head CT 02/17/25 21:27 IMPRESSION: No acute intracranial process. Head/Cervical Spine/Facial Bones CT 02/17/25 21:48 IMPRESSION: No acute fracture or traumatic malalignment in the cervical spine. No acute facial bone fracture. Labs Labs: Laboratory Results - last 24 hr 02/23/25 02/23/25 02/23/25 12:50 16:34 21:01 WBC RBC Hgb Hct MCV MCH MCHC RDW Plt Count MPV Immature Gran % (Auto) Neut % (Auto) Lymph % (Auto) [place] % (Auto) Eos % (Auto) Baso % (Auto) Lymph # (Auto) [place] # (Auto) Eos # (Auto) Baso # (Auto) Abs Immat Gran (auto) Absolute Neuts (auto) Absolute Nucleated RBC Nucleated RBC % Sodium Potassium Chloride Carbon Dioxide Anion Gap BUN Creatinine Estim Creat Clear Calc Estimated GFR Glucose POC Capillary Glucose 79 93 101 Calcium Phosphorus Magnesium Total Bilirubin AST ALT Alkaline Phosphatase Total Protein Albumin 02/24/25 02/24/25 02/24/25 03:26 06:03 08:53 WBC 4.0 L RBC 2.76 L Hgb 9.4 L Hct 27.5 L MCV 99.6 MCH 34.1 H MCHC 34.2 RDW 14.6 H Plt Count 186 MPV 10.7 H Immature Gran % (Auto) 0.5 Neut % (Auto) 60.4 Lymph % (Auto) 28.3 [place] % (Auto) 8.0 Eos % (Auto) 2.0 Baso % (Auto) 0.8 Lymph # (Auto) 1.13 [place] # (Auto) 0.3 Eos # (Auto) 0.1 Baso # (Auto) 0.0 Abs Immat Gran (auto) 0.02 Absolute Neuts (auto) 2.4 Absolute Nucleated RBC 0.000 Nucleated RBC % 0.0 Sodium 133 L Potassium 3.3 L Chloride 108 H Carbon Dioxide 21 L Anion Gap 4 BUN 3 L Creatinine 0.43 L Estim Creat Clear Calc 53 Estimated GFR > 60 Glucose 79 POC Capillary Glucose 109 H 100 Calcium 7.3 L Phosphorus 3.8 Magnesium 1.5 L Total Bilirubin 0.8 AST 33 ALT 33 Alkaline Phosphatase 81 Total Protein 4.0 L Albumin 2.0 L 02/24/25 11:18 WBC RBC Hgb Hct MCV MCH MCHC RDW Plt Count MPV Immature Gran % (Auto) Neut % (Auto) Lymph % (Auto) [place] % (Auto) Eos % (Auto) Baso % (Auto) Lymph # (Auto) [place] # (Auto) Eos # (Auto) Baso # (Auto) Abs Immat Gran (auto) Absolute Neuts (auto) Absolute Nucleated RBC Nucleated RBC % Sodium Potassium Chloride Carbon Dioxide Anion Gap BUN Creatinine Estim Creat Clear Calc Estimated GFR Glucose POC Capillary Glucose 84 Calcium Phosphorus Magnesium Total Bilirubin AST ALT Alkaline Phosphatase Total Protein Albumin Quality VTE Prophylaxis VTE prophylaxis: mechanical ordered (SCDs)
[2025-02-24] MEDS: POTASSIUM CHLORIDE INJ 40 MEQ in SODIUM CHLORIDE 0.9% IV 500 ML 50 MEQ IVPB (11:53)
--- NOTE | 2025-02-24 11:57 | PCNFU ---
Nutrition Follow-Up Complete: Severe protein calorie malnutrition related to chronic illness, poor intake as evidenced by intakes <75% needs >1 month; severe muscle wasting and fat loss Goal:Adequate PO intake at least 75% meals and supplements Pt not meeting goal Pt current nutrition is Regular, Ensure Enlive TID. Nutrition recommendation: continue to encourage po intake when possible Last recorded weight is 34.3 kg. Bowel Motility: +BM 02/23 Labs Reviewed: Hgb:9.4, HCT:27.5, NA:133, K:3.3 Meds Noted: protonix Skin: WNL Additional Notes: Pt continues on a regular diet, intake poor at 0-10% of meals, Pt reports she does not like or want any of the supplements. Encouraged po intake. Possible dishcarge on hospice care. Monitoring intakes, weights, labs, supplement tolerance, plan of care Follow up in 5 days
[2025-02-24 16:30] LABS: Glucose Point of Care 79 mg/dl (65-105)
[2025-02-24 21:51] LABS: Glucose Point of Care 88 mg/dl (65-105)
[2025-02-25 00:02] VITALS: PULSE 78
[2025-02-25 00:03] LABS: Glucose Point of Care 84 mg/dl (65-105)
[2025-02-25 04:03] VITALS: PULSE 78
[2025-02-25 04:24] LABS: Glucose Point of Care 71 mg/dl (65-105)
[2025-02-25 05:47] VITALS: BP 98/60; PULSE 80; RESP 20; TEMP 36.8; O2SAT 98
[2025-02-25 07:01] LABS: Basophils Percent Auto 0.6 % (0.2-1.2); Eosinophils Absolute Auto 0.1 K/mm3 (0-0.3); Eosinophils Percent Auto 1.4 % (0-4.4); Hematocrit 27.1 % (37.0-47.0); Hemoglobin 9.2 g/dL (12.0-15.0); Immature Granulocyte Absolute 0.02 K/mm3 (0.00-0.031); Immature Granulocyte Percent A 0.4 % (0-0.5); Lymphocytes Absolute Auto 1.13 K/mm3 (0.9-3.2); Mean Corpuscular HGB Conc 33.9 g/dl (32-36); Mean Corpuscular Hemoglobin 34.1 pg (26-34); Mean Corpuscular Volume 100.4 fl (80-100); Mean Platelet Volume 10.4 fl (7.4-10.4); Monocytes Absolute Auto 0.5 K/mm3 (0.1-0.6); Monocytes Percent Auto 9.8 % (2.6-8.5); Neutrophils Absolute Auto 3.2 K/mm3 (1.3-6.7); Neutrophils Percent Auto 64.8 % (45.5-73.1); Platelet Count Result 189 k/mm3 (150-375); Red Cell Distribution Width 14.6 % (11.5-14.5); White Blood Count 4.9 K/mm3 (4.5-10.0)
[2025-02-25 07:15] LABS: Phosphorus 3.7 mg/dL (2.5-4.5)
[2025-02-25 07:16] LABS: Alanine Aminotransferase 29 U/L (6-35); Albumin Level 1.8 g/dL (3.5-5.1); Alkaline Phosphatase 82 U/L (38-126); Anion Gap 4 mmol/L (4-12); Aspartate Amino Transferase 26 U/L (14-36); Bilirubin,Total 0.6 mg/dL (0.2-1.3); Blood Urea Nitrogen 4 mg/dL (7-17); Calcium 7.3 mg/dL (8.4-10.2); Carbon Dioxide 20 mmol/L (22-30); Chloride 109 mmol/L (98-107); Estimated CRCL calculation 51 ml/min; Estimated Glomerular Filt Rate > 60; Glucose 75 mg/dL (65-110); Magnesium 1.6 mg/dL (1.6-2.3); Potassium 4.1 mmol/L (3.4-5.0); Sodium 133 mmol/L (137-145)
[2025-02-25] MEDS: DEXTROSE 5%/0.45% SOD CHL 1,000 ML 75 ML IV CONT (07:50)
[2025-02-25] MEDS: PANTOPRAZOLE 40 MG TABLET PO (07:51)
[2025-02-25] MEDS: polyethylene glycoL 3350 17 GM POWD.PACK PO (07:53)
[2025-02-25 08:00] VITALS: PULSE 97; O2SAT 98
[2025-02-25 08:10] LABS: Glucose Point of Care 79 mg/dl (65-105)
[2025-02-25] MEDS: MAGNESIUM SULF 2 GM/WATER 50ML 2 GM/50 ML BAG IVPB (08:50)
[2025-02-25] MEDS: ALBUMIN HUMAN 25% 25 GM/100 ML 100 ML IVPB (10:53)
[2025-02-25 12:06] LABS: Glucose Point of Care 81 mg/dl (65-105)
[2025-02-25] MEDS: oxyCODONE/ACETAMINOPHEN (*CRX) 10-325 MG TABLET 1 TAB PO (12:21)
--- NOTE | 2025-02-25 12:26 | P.PNIM_ITS ---
Progress Note: A&P Assessment and Plan (1) Severe protein-calorie malnutrition: Code(s): E43 - Unspecified severe protein-calorie malnutrition Status: Acute Assessment and Plan: * Protein 4.0. * Ensure Enlive TID with meals. * [employer] following. * Family does not want to initiate PPN. * Care coordination. Hospice consult completed on 02/22, care coordination is trying to get a hold of son. * Care coordination sent referral to [facility]. Plan would be to discharge to [facility] with [facility]. (2) MIRNA (acute kidney injury): Code(s): N17.9 - Acute kidney failure, unspecified Status: Acute Assessment and Plan: * Creatinine 0.41, improved. * Encourage oral intake. * D5 1/2 NS @ 150 ml/hr. (3) High anion gap metabolic acidosis: Code(s): E87.29 - Other acidosis Status: Acute Assessment and Plan: * Current anion gap is 4. (4) Transaminitis: Code(s): R74.01 - Elevation of levels of liver transaminase levels Status: Acute Assessment and Plan: * AST 26, ALT 29. (5) Rhabdomyolysis: Qualifiers: Rhabdomyolysis type: non-traumatic Qualified Code(s): M62.82 - Rhabdomyolysis Code(s): M62.82 - Rhabdomyolysis Status: Acute Assessment and Plan: * Mild rhabdomyolysis * CPK is 157 * Continue IV fluid (6) Adult failure to thrive: Code(s): R62.7 - Adult failure to thrive Status: Acute Assessment and Plan: * [employer] consult. * Care coordination for a hospice consult. (7) Hypoalbuminemia due to protein-calorie malnutrition: Code(s): E88.09 - Other disorders of plasma-protein metabolism, not elsewhere classified; E46 - Unspecified protein-calorie malnutrition Status: Acute Assessment and Plan: * Albumin 1.8. * Albumin 25 gram IVPB given. * Monitor levels. (8) Dementia: Qualifiers: Dementia type: unspecified type Dementia severity: mild Dementia behavioral or psychological symptom: unspecified whether behavioral, psychotic, or mood disturbance or anxiety Qualified Code(s): F03.A0 - Unspecified dementia, mild, without behavioral disturbance, psychotic disturbance, mood disturbance, and anxiety Code(s): F03.90 - Unspecified dementia, unspecified severity, without behavioral disturbance, psychotic disturbance, mood disturbance, and anxiety Status: Acute (9) Chronic pain disorder: Code(s): G89.4 - Chronic pain syndrome Status: Acute Assessment and Plan: * Percocet 10-325 mg 1 tab PO q 6 PRN. (10) Hypomagnesemia: Code(s): E83.42 - Hypomagnesemia Status: Inactive Assessment and Plan: * Magnesium 1.6. * Magnesium sulfate 2 gram IVPB x1 given. * Trend magnesium levels. (11) Hypocalcemia: Code(s): E83.51 - Hypocalcemia Status: Acute Assessment and Plan: * Calcium 7.3, improving. * Monitor level. (12) GERD (gastroesophageal reflux disease): Code(s): K21.9 - Gastro-esophageal reflux disease without esophagitis Status: Acute Assessment and Plan: * Pantoprazole 40 mg PO daily. Plan 79-year-old female with a past medical history of depression, dementia, chronic pain and severe protein calorie malnutrition who presented to the ER from home via EMS after wellness check found the patient on the floor. The patient's was found to be profoundly hypoglycemic with a glucose of 22. Hypoglycemia, dehydration, starvation Patient presented with severe hypoglycemia likely due to severe protein calorie malnutrition ketosis with 2+ ketones in her urine, anion gap acidosis and marked dehydration. continue IV fluid hydration with D5 half-normal saline with 40 of potassium chloride. check Accu-Cheks q.4 hours x3 then transition to q.6 hours and eventually a.c. Severe malnutrition Patient has dementia, possible due to adequate intake and difficulty swallowing Patient passed speech therapy evaluation. Patient does have evidence of starvation Consult dietitian Depression Patient condition is not stable, patient seems aware to her condition. Patient requests to be discharged home, she wants leave AMA. Patient has obvious depression, and had history of suicide attempt Patient came home, had multiple falls recently. Patient cannot take care of herself. We gave her warning of risk of fall and even due to fall and severe malnutrition after leaving AMA, but she still wanted to leave AMA. We need crisis team to re-evaluate the patient when patient became medically stable Consult PT OT social insurance specialist for evaluation and assisting placement Subjective Date/time seen: 02/25/25 12:26 Interval history: Patient reports pain in her back that is an 8 , constant, and aching. Patient denies chest pain, palpitations, shortness of breath, headache, dizziness, nausea, or vomiting. Patient reports a little appetite. Review of Systems Review of Systems: All systems reviewed & are unremarkable except as noted in HPI and below Exam Const: General: no acute distress and uncomfortable Resp: Effort & Inspection: normal respiratory effort Auscultation: clear to auscultation bilaterally Cardio: Rate: regular rate Rhythm: regular rhythm GI: GI Palp: Yes Soft to palpation Auscultation: normal bowel sounds Neuro: Speech: normal speech Extrem: General: no pedal edema Psych: Affect: normal affect Other: Oriented to person and hospital Objective Data Vital Signs Vital Signs: Vital Signs - 24 hr 02/24/25 14:00 02/24/25 16:00 02/24/25 19:54 Temperature 98.2 F Pulse Rate 99 91 Respiratory Rate 16 Blood Pressure 100/64 Pulse Oximetry 100 Oxygen Delivery Room Air 02/24/25 20:03 02/24/25 22:00 02/25/25 00:02 Temperature 98.2 F Pulse Rate 100 87 78 Respiratory Rate 16 Blood Pressure 94/54 L Pulse Oximetry 100 Oxygen Delivery 02/25/25 04:03 02/25/25 05:47 02/25/25 08:00 Temperature 98.2 F Pulse Rate 78 80 97 Respiratory Rate 20 Blood Pressure 98/60 L Pulse Oximetry 98 Oxygen Delivery 02/25/25 08:00 Temperature Pulse Rate Respiratory Rate Blood Pressure Pulse Oximetry 98 Oxygen Delivery Room Air Intake/Output Intake/Output: Intake & Output 02/22/25 02/23/25 02/24/25 02/25/25 23:59 23:59 23:59 23:59 Intake Total 2490 2510 3413 1005 Output Total 2350 2350 2200 1400 Balance 147 609 5106 -395 Meds/Results Medications: Active Medications Generic Name Dose Route Start Last Admin Trade Name Freq PRN Reason Stop Dose Admin Acetaminophen 500 mg 02/18/25 01:02 02/20/25 08:46 Acetaminophen 500 Mg Tablet PO 500 mg Q6H PRN Administration Mild Pain (1-3) or Fever Bisacodyl 10 mg 02/23/25 12:38 Bisacodyl 10 Mg Suppository RECTAL QAM PRN Constipation Dextrose 12.5 gm 02/17/25 22:05 02/19/25 11:44 Dextrose 50% 25 Gm/50 Ml Syringe IV PUSH 12.5 gm PRN PRN Administration Hypoglycemia Protocol Docusate Sodium 100 mg 02/23/25 12:38 Docusate Sodium 100 Mg Capsule PO Q12H PRN Constipation Glucagon 1 mg 02/17/25 22:05 Glucagon For Inj 1 Mg Vial IM PRN PRN Hypoglycemia Protocol Glucose 15 gm 02/17/25 22:05 02/19/25 21:37 Glucose Oral Gel 15 Gm Of Glucse In 37.5 Gm Tube PO 15 gm PRN PRN Administration Hypoglycemia Protocol Dextrose/Sodium Chloride 1,000 mls @ 150 mls/hr 02/20/25 09:55 02/25/25 07:50 Dextrose 5% Sodium Chloride 0.45% IV CONT 75 mls/hr .Q6H40M KASHIF Administration Ondansetron HCl 4 mg 02/23/25 12:40 Ondansetron Inj 4 Mg/2 Ml Vial IV PUSH Q6H PRN Nausea And Vomiting Oxycodone/Acetaminophen 1 tab 02/18/25 01:02 02/25/25 12:21 Oxycodone/Acetaminophen (*Crx) 10-325 Mg Tablet PO 1 tab Q6H PRN Administration Pain Rated 7-10 Pantoprazole Sodium 40 mg 02/19/25 12:25 02/25/25 07:51 Pantoprazole 40 Mg Tablet PO 40 mg QAM KASHIF Administration Polyethylene Glycol 17 gm 02/23/25 12:38 02/25/25 07:53 Polyethylene Glycol 3350 17 Gm Powd.Pack PO 17 gm QAM PRN Administration Constipation Radiology Results: ITS Impressions Chest X-Ray 02/17/25 19:57 IMPRESSION: No acute cardiopulmonary process. Head CT 02/17/25 21:27 IMPRESSION: No acute intracranial process. Head/Cervical Spine/Facial Bones CT 02/17/25 21:48 IMPRESSION: No acute fracture or traumatic malalignment in the cervical spine. No acute facial bone fracture. Labs Labs: Laboratory Results - last 24 hr 02/24/25 02/24/25 02/24/25 16:28 20:21 23:50 WBC RBC Hgb Hct MCV MCH MCHC RDW Plt Count MPV Immature Gran % (Auto) Neut % (Auto) Lymph % (Auto) [place] % (Auto) Eos % (Auto) Baso % (Auto) Lymph # (Auto) [place] # (Auto) Eos # (Auto) Baso # (Auto) Abs Immat Gran (auto) Absolute Neuts (auto) Absolute Nucleated RBC Nucleated RBC % Sodium Potassium Chloride Carbon Dioxide Anion Gap BUN Creatinine Estim Creat Clear Calc Estimated GFR Glucose POC Capillary Glucose 79 88 84 Calcium Phosphorus Magnesium Total Bilirubin AST ALT Alkaline Phosphatase Total Protein Albumin 02/25/25 02/25/25 02/25/25 04:14 06:50 07:49 WBC 4.9 RBC 2.70 L Hgb 9.2 L Hct 27.1 L MCV 100.4 H MCH 34.1 H MCHC 33.9 RDW 14.6 H Plt Count 189 MPV 10.4 Immature Gran % (Auto) 0.4 Neut % (Auto) 64.8 Lymph % (Auto) 23.0 [place] % (Auto) 9.8 H Eos % (Auto) 1.4 Baso % (Auto) 0.6 Lymph # (Auto) 1.13 [place] # (Auto) 0.5 Eos # (Auto) 0.1 Baso # (Auto) 0.0 Abs Immat Gran (auto) 0.02 Absolute Neuts (auto) 3.2 Absolute Nucleated RBC 0.000 Nucleated RBC % 0.0 Sodium 133 L Potassium 4.1 Chloride 109 H Carbon Dioxide 20 L Anion Gap 4 BUN 4 L Creatinine 0.41 L Estim Creat Clear Calc 51 Estimated GFR > 60 Glucose 75 POC Capillary Glucose 71 79 Calcium 7.3 L Phosphorus 3.7 Magnesium 1.6 Total Bilirubin 0.6 AST 26 ALT 29 Alkaline Phosphatase 82 Total Protein 4.0 L Albumin 1.8 L 02/25/25 12:01 WBC RBC Hgb Hct MCV MCH MCHC RDW Plt Count MPV Immature Gran % (Auto) Neut % (Auto) Lymph % (Auto) [place] % (Auto) Eos % (Auto) Baso % (Auto) Lymph # (Auto) [place] # (Auto) Eos # (Auto) Baso # (Auto) Abs Immat Gran (auto) Absolute Neuts (auto) Absolute Nucleated RBC Nucleated RBC % Sodium Potassium Chloride Carbon Dioxide Anion Gap BUN Creatinine Estim Creat Clear Calc Estimated GFR Glucose POC Capillary Glucose 81 Calcium Phosphorus Magnesium Total Bilirubin AST ALT Alkaline Phosphatase Total Protein Albumin Quality VTE Prophylaxis VTE prophylaxis: mechanical ordered (SCDs)
[2025-02-25 14:00] VITALS: BP 87/44; PULSE 80; RESP 14; TEMP 35.7; O2SAT 100
[2025-02-25 16:32] LABS: Glucose Point of Care 78 mg/dl (65-105)
[2025-02-25 22:00] VITALS: BP 120/60; PULSE 81; RESP 18; TEMP 36.8; O2SAT 99
[2025-02-26 02:54] LABS: Glucose Point of Care 96 mg/dl (65-105)
[2025-02-26 03:02] LABS: Glucose Point of Care 95 mg/dl (65-105)
[2025-02-26] MEDS: DEXTROSE 5%/0.45% SOD CHL 1,000 ML 75 ML IV CONT (04:15)
[2025-02-26 06:58] LABS: Basophils Percent Auto 0.5 % (0.2-1.2); Eosinophils Absolute Auto 0.1 K/mm3 (0-0.3); Eosinophils Percent Auto 1.1 % (0-4.4); Hematocrit 27.9 % (37.0-47.0); Hemoglobin 9.5 g/dL (12.0-15.0); Immature Granulocyte Absolute 0.01 K/mm3 (0.00-0.031); Immature Granulocyte Percent A 0.2 % (0-0.5); Lymphocytes Absolute Auto 1.11 K/mm3 (0.9-3.2); Lymphocytes Percent Auto 20.3 % (18.3-44.2); Mean Corpuscular HGB Conc 34.1 g/dl (32-36); Mean Corpuscular Hemoglobin 33.5 pg (26-34); Mean Corpuscular Volume 98.2 fl (80-100); Mean Platelet Volume 10.6 fl (7.4-10.4); Monocytes Absolute Auto 0.4 K/mm3 (0.1-0.6); Monocytes Percent Auto 7.5 % (2.6-8.5); Neutrophils Absolute Auto 3.9 K/mm3 (1.3-6.7); Neutrophils Percent Auto 70.4 % (45.5-73.1); Platelet Count Result 215 k/mm3 (150-375); Red Blood Count 2.84 M/mm3 (4.2-5.4); Red Cell Distribution Width 14.3 % (11.5-14.5); White Blood Count 5.5 K/mm3 (4.5-10.0)
[2025-02-26 07:09] LABS: Alanine Aminotransferase 29 U/L (6-35); Albumin Level 2.4 g/dL (3.5-5.1); Alkaline Phosphatase 91 U/L (38-126); Anion Gap 6 mmol/L (4-12); Aspartate Amino Transferase 26 U/L (14-36); Blood Urea Nitrogen 4 mg/dL (7-17); Calcium 7.4 mg/dL (8.4-10.2); Carbon Dioxide 21 mmol/L (22-30); Chloride 107 mmol/L (98-107); Estimated CRCL calculation 49 ml/min; Estimated Glomerular Filt Rate > 60; Glucose 74 mg/dL (65-110); Magnesium 1.9 mg/dL (1.6-2.3); Phosphorus 3.8 mg/dL (2.5-4.5); Potassium 3.7 mmol/L (3.4-5.0); Sodium 134 mmol/L (137-145)
[2025-02-26 08:00] VITALS: O2SAT 99
[2025-02-26 08:08] LABS: Glucose Point of Care 89 mg/dl (65-105)
[2025-02-26] MEDS: PANTOPRAZOLE 40 MG TABLET PO (09:45)
[2025-02-26 11:28] LABS: Glucose Point of Care 97 mg/dl (65-105)
--- NOTE | 2025-02-26 13:25 | PC.NURSE ---
Message left for Elisha Harris, to return call regarding an update and discharge plan.
--- NOTE | 2025-02-26 13:39 | PC.NURSE ---
Return telephone call received from Elisha Harris. Update given. Explained plan was for the patient to be discharged today. Ary stated she will transport patient by private car upon discharge. Will notify Ary when discharge order has been entered.
--- NOTE | 2025-02-26 13:40 | PCPTNOTE ---
Attempted to see patient in A.M. and again this afternoon, however patient refused PT both times stating I just can't do it.
[2025-02-26 14:00] VITALS: BP 140/70; PULSE 78; RESP 16; TEMP 36.3; O2SAT 100
[2025-02-26] MEDS: INFLUENZA VACCINE HIGH DOSE (>64) 180 MCG/0.5 ML SYRINGE IM (14:07)
--- NOTE | 2025-02-26 15:27 | P.DS_ITS ---
DS: Admitting Diagnosis Discharge Date 02/26/2025 Admitting Diagnosis Rhabdomyolysis failure to thrive DS: Discharge Diagnosis Discharge Diagnosis (1) Severe protein-calorie malnutrition: Code(s): E43 - Unspecified severe protein-calorie malnutrition Status: Acute Assessment and Plan: * Protein 4.0. * Ensure Enlive TID with meals. * [employer] following. * Family does not want to initiate PPN. * Care coordination. Hospice consult completed on 02/22, care coordination is trying to get a hold of son. * Care coordination sent referral to [facility]. Plan would be to discharge to [facility] with [facility]. (2) MIRNA (acute kidney injury): Code(s): N17.9 - Acute kidney failure, unspecified Status: Acute Assessment and Plan: * Creatinine 0.41, improved. * Encourage oral intake. * D5 1/2 NS @ 150 ml/hr. (3) High anion gap metabolic acidosis: Code(s): E87.29 - Other acidosis Status: Acute Assessment and Plan: * Current anion gap is 4. (4) Transaminitis: Code(s): R74.01 - Elevation of levels of liver transaminase levels Status: Acute Assessment and Plan: * AST 26, ALT 29. (5) Rhabdomyolysis: Qualifiers: Rhabdomyolysis type: non-traumatic Qualified Code(s): M62.82 - Rhabdomyolysis Code(s): M62.82 - Rhabdomyolysis Status: Acute Assessment and Plan: * Mild rhabdomyolysis * CPK is 157 * Continue IV fluid (6) Adult failure to thrive: Code(s): R62.7 - Adult failure to thrive Status: Acute Assessment and Plan: * [employer] consult. * Care coordination for a hospice consult. (7) Hypoalbuminemia due to protein-calorie malnutrition: Code(s): E88.09 - Other disorders of plasma-protein metabolism, not elsewhere classified; E46 - Unspecified protein-calorie malnutrition Status: Acute Assessment and Plan: * Albumin 1.8. * Albumin 25 gram IVPB given. * Monitor levels. (8) Dementia: Qualifiers: Dementia type: unspecified type Dementia severity: mild Dementia behavioral or psychological symptom: unspecified whether behavioral, psychotic, or mood disturbance or anxiety Qualified Code(s): F03.A0 - Unspecified dementia, mild, without behavioral disturbance, psychotic disturbance, mood disturbance, and anxiety Code(s): F03.90 - Unspecified dementia, unspecified severity, without behavioral disturba nce, psychotic disturbance, mood disturbance, and anxiety Status: Acute (9) Chronic pain disorder: Code(s): G89.4 - Chronic pain syndrome Status: Acute Assessment and Plan: * Percocet 10-325 mg 1 tab PO q 6 PRN. (10) Hypomagnesemia: Code(s): E83.42 - Hypomagnesemia Status: Inactive Assessment and Plan: * Magnesium 1.6. * Magnesium sulfate 2 gram IVPB x1 given. * Trend magnesium levels. (11) Hypocalcemia: Code(s): E83.51 - Hypocalcemia Status: Acute Assessment and Plan: * Calcium 7.3, improving. * Monitor level. (12) GERD (gastroesophageal reflux disease): Code(s): K21.9 - Gastro-esophageal reflux disease without esophagitis Status: Acute Assessment and Plan: * Pantoprazole 40 mg PO daily. Plan 79-year-old female with a past medical history of depression, dementia, chronic pain and severe protein calorie malnutrition who presented to the ER from home via EMS after wellness check found the patient on the floor. The patient's was found to be profoundly hypoglycemic with a glucose of 22. Hypoglycemia, dehydration, starvation Patient presented with severe hypoglycemia likely due to severe protein calorie malnutrition ketosis with 2+ ketones in her urine, anion gap acidosis and marked dehydration. continue IV fluid hydration with D5 half-normal saline with 40 of potassium chloride. check Accu-Cheks q.4 hours x3 then transition to q.6 hours and eventually a.c. Severe malnutrition Patient has dementia, possible due to adequate intake and difficulty swallowing Patient passed speech therapy evaluation. Patient does have evidence of starvation Consult dietitian Depression Patient condition is not stable, patient seems aware to her condition. Patient requests to be discharged home, she wants leave AMA. Patient has obvious depression, and had history of suicide attempt Patient came home, had multiple falls recently. Patient cannot take care of herself. We gave her warning of risk of fall and even due to fall and severe malnutrition after leaving AMA, but she still wanted to leave AMA. We need crisis team to re-evaluate the patient when patient became medically stable Consult PT OT psych social worker for evaluation and assisting placement DS: Summary Hospital Course Hospital Course: Patient is 79-year-old female with past medical history of depression, dementia, chronic pain, protein calorie malnutrition who presented the ED after she was noted in a wellness check at home and was found on the floor. Upon arrival to the ED patient was noted to be hypoglycemic with glucose of 22. Urine also. Positive for ketones and ketosis. Patient was noted to have rhabdomyolysis with the mildly elevated CPK 157. Creatinine was little elevated on arrival is currently better and back to baseline. Patient is doing little bit better however patient will be going back to anything home for hospice. Patient is agreeable to plan of care at this time. Pain medications have been added.. Labs and vital signs appear to be stable at this time. Patient is stable for discharge. Status at Discharge Functional status at discharge: bed bound Overall status at discharge: patient is progressing back to baseline Time Spent with Patient Time attestation: Total time spent providing and/or coordinating discharge services: 48 minutes Time spent: Greater than 30 minutes Specific discharge activities: Diagnostic testing, chart review, developing a treatment plan, education, care coordination documentation, physical exam, result review Exam Narrative: General: mal-nourished, ill-appearing 79-year-old female, sitting up in bed, comfortable, NARD Neuro: awake, alert and oriented x4, speech clear, no focal neuro deficits noted HEENMT: normocephalic, atraumatic, EOMI, sclerae anicteric, moist oral mucosa Respiratory: Clear to auscultation bilaterally without crackles, rhonchi or wheezes, nonlabored breathing Cardio: regular rate, regular rhythm with S1-S2 Abdomen: nondistended, normoactive bowel sounds, soft, nontender to palpation Extremities: no edema, erythema, or tenderness to palpation, DP pulses 2+ bilaterally Skin: no rashes or lesions, warm and dry Psych: appropriate mood and affect, judgment and insight intact DS: Data Data Completed and Pending Labs on day of discharge: Labs from last 24 hours 02/26/25 02/26/25 02/26/25 11:22 08:02 06:24 WBC 5.5 RBC 2.84 L Hgb 9.5 L Hct 27.9 L MCV 98.2 MCH 33.5 MCHC 34.1 RDW 14.3 Plt Count 215 MPV 10.6 H Immature Gran % (Auto) 0.2 Neut % (Auto) 70.4 Lymph % (Auto) 20.3 [place] % (Auto) 7.5 Eos % (Auto) 1.1 Baso % (Auto) 0.5 Lymph # (Auto) 1.11 [place] # (Auto) 0.4 Eos # (Auto) 0.1 Baso # (Auto) 0.0 Abs Immat Gran (auto) 0.01 Absolute Neuts (auto) 3.9 Absolute Nucleated RBC 0.000 Nucleated RBC % 0.0 Sodium 134 L Potassium 3.7 Chloride 107 Carbon Dioxide 21 L Anion Gap 6 BUN 4 L Creatinine 0.43 L Estim Creat Clear Calc 49 Estimated GFR > 60 Glucose 74 POC Capillary Glucose 97 89 Calcium 7.4 L Phosphorus 3.8 Magnesium 1.9 Total Bilirubin 1.0 AST 26 ALT 29 Alkaline Phosphatase 91 Total Protein 5.0 L Albumin 2.4 L 02/26/25 02/25/25 02/25/25 01:43 19:48 16:04 WBC RBC Hgb Hct MCV MCH MCHC RDW Plt Count MPV Immature Gran % (Auto) Neut % (Auto) Lymph % (Auto) [place] % (Auto) Eos % (Auto) Baso % (Auto) Lymph # (Auto) [place] # (Auto) Eos # (Auto) Baso # (Auto) Abs Immat Gran (auto) Absolute Neuts (auto) Absolute Nucleated RBC Nucleated RBC % Sodium Potassium Chloride Carbon Dioxide Anion Gap BUN Creatinine Estim Creat Clear Calc Estimated GFR Glucose POC Capillary Glucose 96 95 78 Calcium Phosphorus Magnesium Total Bilirubin AST ALT Alkaline Phosphatase Total Protein Albumin Discharge Plan Discharge Attending physician on discharge: JeremyOnsarmad Discharging Clinician: Manuel Corona Patient Disposition: [facility] Activity: may shower, unlimited and as tolerated Diet: regular Discharge Instructions: * Take all medications as prescribed even if feeling better * Eat well balanced meals and stay hydrated * Keep active to remain strong * Avoid use of diapers or pads * Good gopi Care every 2 hours * Trend urine output * If you should experience any chest pain, shortness of breath, temps >100.4 or any other worrisome symptoms please follow up with your PCP come back to the hospital * Follow up with your primary in 1 weeks * It has been a pleasure taking care of you thank you for using our services * Follow up with hospice when arrival to the skilled nursing Patient Instructions: Antibiotic Form Patient Language: Czech Stand Alone Forms: General Discharge Information Follow-up/Referrals: UNKNOWN,DOCTOR [Primary Care Provider] - 1 Week Discharge Medications: Changed oxycodone-acetaminophen 10-325 mg tablet 1 tablet PO Q6H PRN (Reason: pain) Qty: 12 0RF Patient Comments: Niece states that Pt. picks up 180 tablets approx. every month Date of admission: 02/19/25 16:14 Primary Care Provider: UNKNOWN,DOCTOR Admitting Provider: Yuki Lacey Attending physician on admission: Yuki Lacey Condition: Serious Quality VTE Prophylaxis VTE prophylaxis: mechanical ordered
--- NOTE | 2025-02-26 15:54 | PC.NURSE ---
Elisha Harris, notified per telephone that patient's discharge order is in.
[2025-02-26] MEDS: oxyCODONE/ACETAMINOPHEN (*CRX) 10-325 MG TABLET 1 TAB PO (17:17)
== END 2025-02-26 17:39 | DRG 557 ==
LOC: ANHED 22:04 → ANH3MEDSUR 23:40
PROVIDERS: Nurse Practitioner Family; Admitting Provider Internal Medicine; Emergency Provider Emergency Medicine; Visit Provider Nurse Practitioner
DX: M62.82 Rhabdomyolysis (principal); E43 Unspecified severe protein-calorie malnutrition; N17.9 Acute kidney failure, unspecified; E87.29 Other acidosis; Z68.1 Body mass index [BMI] 19.9 or less, adult; J43.9 Emphysema, unspecified; E87.6 Hypokalemia; E83.42 Hypomagnesemia; E83.51 Hypocalcemia; E87.5 Hyperkalemia; E88.09 Other disorders of plasma-protein metabolism, not elsewhere classified; E16.2 Hypoglycemia, unspecified; K21.9 Gastro-esophageal reflux disease without esophagitis; R33.9 Retention of urine, unspecified; R62.7 Adult failure to thrive; M81.0 Age-related osteoporosis without current pathological fracture; G89.29 Other chronic pain; F03.90 Unspecified dementia, unspecified severity, without behavioral disturbance, psychotic disturbance, mood disturbance, and anxiety; F32.A Depression, unspecified; Z20.822 Contact with and (suspected) exposure to COVID-19; Z23 Encounter for immunization
CPT/HCPCS: 36415; 70450; 70486; 71045; 72125; 80048; 80053; 81001; 82550; 82948; 83735; 84100; 84443; 85025; 85027; 87637; 90471; 90662; 92610; 93005; 96365; 96366; 96367; 97110; 97162; 97166; 97530; 97535; 99285; A9270; G0008; G0378; J0612; J3411; J3475; J3480; J7030; J7040; J7120; P9047

== ENCOUNTER 2025-03-11 05:58 | Emergency (ER) | payer MEDICARE, SELFPAY ==
[2025-03-11 05:58] VITALS: BP 126/83; PULSE 66; RESP 18; TEMP 36.6; O2SAT 95
--- NOTE | 2025-03-11 06:40 | PC.NURSE ---
Pt lisa (her POA), called RN and states pt is comfort measures only. Pt was recently placed with [facility] hospice care. Danielle will be here at 08:00 this morning.
--- NOTE | 2025-03-11 06:46 | PC.NURSE ---
Haydee from [facility] to update her on pt and speak with her what all they would like us to do for pt care. She states she wants the CT scans done that Dr. Perez has ordered thus far. She further states she will get back to me on further information after she speak with pt caregiver.
--- NOTE | 2025-03-11 07:03 | PC.NURSE ---
Haydee from [facility] callled this RN back and states that she spoke with her manager talent and they verbally state if pt is talking and seems like she is at her baseline then we can cancel CT scans and just fix up her lacerations and send her back to facility and they will follow up with her at [facility] once she gets back.
--- OUTSIDE RECORDS SUMMARY | 2025-03-11 07:19 | XMS_ITS | Encounter Summary ---
Author Organization [facility] Healthcare Address [address] [place] [address] Care Team Providers Care Study Manager Name Role Phone Sal Pearson MD Primary Care Provider [phone] Anastacio Lopez NP Primary Care Provider [phone] No, Physician Primary Care Provider [phone] Encounter Details Date Type Department Care Team (Late st Contact Info) Description 07/05/2021 Telephone [facility] [address] [place] [id number] [place], [place] Social History Tobacco Use Types Packs/Day Years Used Date Smoking Tobacco: Never Smokeless Tobacco: Never Alcohol Use Standard Drinks/Week Comments No 0 (1 standard drink = 0.6 oz pur e alcohol) Comments No Sex and Gender Information Value Date Recorded Sex Assigned at Not on file 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
--- OUTSIDE RECORDS SUMMARY | 2025-03-11 07:19 | XMS_ITS | Encounter Summary ---
Author Organization [facility] Address [address] [place] [address] Care Team Providers Care Ship Fastener Name Role Phone Leann Kennedy MD Primary Care Provider [phone] Encounter Details Date Type Department Care Team (Late st Contact Info) Description 07/17/2002 Outpatient Historical [facility] [address] 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
--- OUTSIDE RECORDS SUMMARY | 2025-03-11 07:19 | XMS_ITS | Encounter Summary ---
Author Organization [employer] Address 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
--- OUTSIDE RECORDS SUMMARY | 2025-03-11 07:19 | XMS_ITS | Encounter Summary ---
Author Organization [employer] Address [address] [place] [address] Care Team Providers Care Financial Dealers Name Role Phone Leann Kennedy MD Primary Care Provider [phone] Encounter Details Date Type Department Care Team (Latest Contact Info) Description 07/17/2002 Outpatient Historical HIS [facility] TETE Madrigal, Fidel Rosa MD NO ADDRESS ON FILE CALCULUS OF KIDNEY (Primary Dx) Social History Tobacco Use Types Packs/Day Years Used Date Smoking Tobacco: Never Assessed Comments Unknown Sex and Gender Information Value Date Recorded Sex Assigned at Not on file Legal Sex Female 5:24 AM CARD HAND Gender Identity Not on file Sexual Orientation Not on file documented as of this encounter Plan of Treatment Not on file documented as of this encounter Visit Diagnoses Diagnosis Calculus of kidney- Primary documented in this encounter Care Teams Financial Dealers Relationship Specialty [place] [address] [facility] [address] [place] [phone] PCP - General Family Practice 10/03/18 10/05/20 documented as of this encounter
--- OUTSIDE RECORDS SUMMARY | 2025-03-11 07:19 | XMS_ITS | Clinical Summary ---
Author Organization [facility] Address [address] [place] [address] Phone Care Team Providers Care Game Developer Name Role Phone Unavailable Primary Care Provider [...] on file Legal Sex Female 5:24 AM SLITTER OPERATOR Gender Identity Not on file Sexual Orientation Not on file Occupation Industry Job Start Date Job End Date Not on file Not on file Not on file Not on file Not on file Not on file Not on file Not on file Last Filed Vital Signs Vital Sign Reading Time Taken Comments Blood Pressure 134/58 10/03/2018 8:38 AM SLITTER OPERATOR Pulse 68 10/03/2018 8:38 AM SLITTER OPERATOR Temperature - - Respiratory Rate - - Oxygen Saturation 95% 10/03/2018 8:38 AM SLITTER OPERATOR Inhaled Oxygen Concentration - - Weight 53.1 kg (117 lb) 10/03/2018 8:38 AM SLITTER OPERATOR Height 157.5 cm (5' 2 ) 10/03/2018 8:38 AM SLITTER OPERATOR Body Mass Index 21.4 10/03/2018 8:38 AM SLITTER OPERATOR Plan of Treatment Health Maintenance Due [...] Discontinued Insurance MEDICARE PART [place] [id number]
--- OUTSIDE RECORDS SUMMARY | 2025-03-11 07:19 | XMS_ITS | Encounter Summary ---
Author Organization [employer] Address [address] [place] [address] Care Team Providers Care Tray Line Worker Name Role Phone Leann Kennedy MD Primary Care Provider [phone] Encounter Details Date Type Department Care Team (Latest Contact Info) Description 12/09/2002 Outpatient Historical HIS [facility] TETE Madrigal, Fidel Rosa MD NO ADDRESS ON FILE CALCULUS OF KIDNEY (Primary Dx) Social History Tobacco Use Types Packs/Day Years Used Date Smoking Tobacco: Never Assessed Comments Unknown Sex and Gender Information Value Date Recorded Sex Assigned at Not on file Legal Sex Female 5:24 AM STONE SPLITTER Gender Identity Not on file Sexual Orientation Not on file documented as of this encounter Plan of Treatment Not on file documented as of this encounter Visit Diagnoses Diagnosis Calculus of kidney- Primary documented in this encounter Care Teams Tray Line Worker Relationship Specialty [place] [address] [facility] [address] [place] [phone] PCP - General Family Practice 10/03/18 10/05/20 documented as of this encounter
--- OUTSIDE RECORDS SUMMARY | 2025-03-11 07:19 | XMS_ITS | Encounter Summary ---
Author Organization [employer] Address 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
--- OUTSIDE RECORDS SUMMARY | 2025-03-11 07:19 | XMS_ITS | Encounter Summary ---
Author Organization [employer] Address 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
--- OUTSIDE RECORDS SUMMARY | 2025-03-11 07:19 | XMS_ITS | Encounter Summary ---
Author Organization [employer] Address [address] [place] [address] Care Team Providers Care Aircraft Log Clerk Name Role Phone Leann Kennedy MD Primary Care Provider [phone] Encounter Details Date Type Department Care Team (Late st Contact Info) Description 05/15/2002 [facility] FILE CALCULUS OF KIDNEY (Primary Dx) Social History Tobacco Use Types Packs/Day Years Used Date Smoking Tobacco: Never Assessed Comments Unknown Sex and Gender Information Value Date Recorded Sex Assigned at Not on file Legal Sex Female 5:24 AM GEARCASE ASSEMBLER Gender Identity Not on file Sexual Orientation Not on file documented as of this encounter Plan of Treatment Not on file documented as of this encounter Visit Diagnoses Diagnosis Calculus of kidney- Primary documented in this encounter Care Teams Aircraft Log Clerk Relationship Specialty [place] [address] [facility] [address] [place] [phone] PCP - General Family Practice 10/03/18 10/05/20 documented as of this encounter
--- OUTSIDE RECORDS SUMMARY | 2025-03-11 07:19 | XMS_ITS | Encounter Summary ---
Author Organization [employer] Address [address] [place] [address] Care Team Providers Care Outfitter Cabin Name Role Phone Leann Kennedy MD Primary Care Provider [phone] Encounter Details Date Type Department Care Team (Latest Contact Info) Description 07/24/2002 Outpatient Historical HIS [facility] TETE Madrigal, Fidel Rosa MD NO ADDRESS ON FILE CALCULUS OF URETER (Primary Dx) Social History Tobacco Use Types Packs/Day Years Used Date Smoking Tobacco: Never Assessed Comments Unknown Sex and Gender Information Value Date Recorded Sex Assigned at Not on file Legal Sex Female 5:24 AM HOGSHEAD MAT ASSEMBLER Gender Identity Not on file Sexual Orientation Not on file documented as of this encounter Plan of Treatment Not on file documented as of this encounter Visit Diagnoses Diagnosis Calculus of ureter- Primary documented in this encounter Care Teams Outfitter Cabin Relationship Specialty [place] [address] [facility] [address] [place] [phone] PCP - General Family Practice 10/03/18 10/05/20 documented as of this encounter
--- OUTSIDE RECORDS SUMMARY | 2025-03-11 07:19 | XMS_ITS | Clinical Summary ---
Author Organization [facility] Address [address] [place] [address] Care Team Providers Care Card Mounter Name Role Phone Unavailable Primary Care Provider Unavailabl e Immunizations Immunization Administration Dates Next Due Fluzone High Dose [...] 1993 Dexa Scan (General) 2008 Pneumococcal Vaccine: 50+ Ye ars (1 of 1 - PCV) 2008 RSV Immunization or 60+ Years (1 - 1-dose 75+ series) 2018 COVID-19 Vaccine (2 - 2023-2 5 season) 2024 12/29/2020 Meningococcal B Vaccine Aged Out No l onger eligible based on patient's age to complete this topic Meningococcal Vaccine Aged Out No danuta will eligible based on patient's age to complete this topic RSV Immunizations Under 20 Months Aged Out No longer eligible based on patient's age to complete this topic
--- OUTSIDE RECORDS SUMMARY | 2025-03-11 07:19 | XMS_ITS | Encounter Summary ---
Author Organization [employer] Address [address] [place] [address] Care Team Providers Care Information Technology Security Analyst Name Role Phone Leann Kennedy MD Primary Care Provider [phone] Encounter Details Date Type Department Care Team (Late st Contact Info) Description 05/10/2002 [facility] FILE CALCULUS OF KIDNEY (Primary Dx) Social History Tobacco Use Types Packs/Day Years Used Date Smoking Tobacco: Never Assessed Comments Unknown Sex and Gender Information Value Date Recorded Sex Assigned at Not on file Legal Sex Female 5:24 AM TACO MAKER Gender Identity Not on file Sexual Orientation Not on file documented as of this encounter Plan of Treatment Not on file documented as of this encounter Visit Diagnoses Diagnosis Calculus of kidney- Primary documented in this encounter Care Teams Information Technology Security Analyst Relationship Specialty [place] [address] [facility] [address] [place] [phone] PCP - General Family Practice 10/03/18 10/05/20 documented as of this encounter
--- OUTSIDE RECORDS SUMMARY | 2025-03-11 07:19 | XMS_ITS | Encounter Summary ---
Author Organization [employer] Address 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
--- OUTSIDE RECORDS SUMMARY | 2025-03-11 07:19 | XMS_ITS | Encounter Summary ---
Author Organization [facility] Address [address] [place] [address] Care Team Providers Care Deputy Administrator Name Role Phone Sal Pearson MD Primary Care Provider Anastacio Lopez NP Primary Care Provider [phone] No, Physician Primary Care Provider [phone] Encounter Details Date Type Department Care Team (Late st Contact Info) Description 10/28/2021 Telephone [facility] [address] [place] [id number] Paulino Barbosa, RT Social History Tobacco Use Types Packs/Day Years Used Date Smoking Tobacco: Never Smokeless Tobacco: Never Alcohol Use Standard Drinks/Week Comments No 0 (1 standard drink = 0.6 oz pur e alcohol) Comments No Sex and Gender Information Value Date Recorded Sex Assigned at Not on file Legal Sex Female 1:17 PM RESIDENTIAL PROGRAM DIRECTOR Gender Identity Not on file Sexual Orientation Not on file documented as of this encounter Plan of Treatment Not on file documented as of this encounter Visit Diagnoses Not on filedocumented in this encounter Care Teams Deputy Administrator Relationship Specialty Start Date End Date Sal Pearson MD [address] [address] PCP - General 06/25/20 12/21/21 [place] [address] [place] [address] PCP - General Internal Medicine 12/22/21 09/11/24 No, Physician PCP - General 09/12/24 documented as of this encounter
--- OUTSIDE RECORDS SUMMARY | 2025-03-11 07:19 | XMS_ITS | Encounter Summary ---
Author Organization [employer] Address 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
--- OUTSIDE RECORDS SUMMARY | 2025-03-11 07:19 | XMS_ITS | Encounter Summary ---
Author Organization [facility] Address [address] [place] [address] Phone Care Team Providers Care Hand Cigar Making Supervisor Name Role Phone Anastacio Lopez NP Primary Care Provider [phone] No, Physician Primary Care Provider [phone] Encounter Details Date Type Department Care Team (Late st Contact Info) Description 10/18/2022 Treatment [facility] [address] [facility] [address] [place] [address] Jaylin Mojica DNP [address] [facility] [address] [place] [address] Age-related osteoporosis without current pathological fracture (Primary Dx) Social History Tobacco Use Types Packs/Day Years Used Date Smoking Tobacco: Never Smokeless Tobacco: Never Alcohol Use Standard Drinks/Week Comments No 0 (1 standard drink = 0.6 oz pur e alcohol) Comments No Sex and Gender Information Value Date Recorded Sex Assigned at Not on file Legal Sex Female 1:17 PM FORM DESIGNER Gender Identity Not on file Sexual Orientation Not on file documented as of this encounter Plan of Treatment Not on file documented as of this encounter Visit Diagnoses Diagnosis Age-related osteoporosis without current pathological fracture- Primary documented in this encounter Care Teams Hand Cigar Making Supervisor Relationship Specialty Start Date End Date Anastacio Lopez NP PCP - General Internal Medicine 12/22/21 09/11/24 No, Physician PCP - General 09/12/24 documented as of this encounter
--- OUTSIDE RECORDS SUMMARY | 2025-03-11 07:19 | XMS_ITS | Clinical Summary ---
Author Organization [facility] Address [address] [place] [address] Care Team Providers Care Vocational Childcare Teacher Name Role Phone Alicja Waldrop MD Unavailable [phone] Saul Castrejon MD Unavailable [phone] Source Comments [facility],non-owned Affiliates and Associated Physician Practices is amultiple site organization consisting of ambulatory clinics and hospital sitesin [place], [place], [place] and [place]. This disclosure is being madepursuant to the Care Everywhere program and may not contain all information available regarding this patient. Last updated 18.[facility] Allergies No known active allergies Medications * Be aware that medications may not be up to date on this document. Alwaysverify current medications with the patient. oxyCODONE-acet aminophen (PERCOCET) 7.5-325 MG tablet Take 1 Tab by mouth every 6 hours as needed 0 6 Active Multiple Vitamins-Director Of Content And Programming als (CENTRUM SILVER ADULT 50+ PO) Take 1 Tab by mouth once daily Active Calcium-Phosph orus-Vitamin D (CITRACAL +D3 PO) Take 1 Each [...] Date Resolved Date Trauma 08/30/2017 08/30/2017 Immunizations Immunization Administration Dates Next Due INFLUENZA VACCINE 08/27/2017,08/27/2016 [...] = 0.6 oz pur e alcohol) Comments Unknown Sex and Gender Information Value Date Recorded Sex Assigned at Not on file Legal Sex Female 8:14 AM CREDIT DEPARTMENT MANAGER Gender Identity Not on file Sexual [...] yrs (1 - 1-dose 75+ series) 2018 COVID-19 VACCINE ( - 2023-2 5 season) 2024 DEPRESSION SCREENING 11/27/2024 INFLUENZA VACCINE (Season Ended) 2025 08/27/2017, 08/27/2016 HEPATITIS B VACCINE Aged Out No longe [...] patient's age to complete this topic Insurance MEDICARE [facility] MEDICARE [facility] Care Teams Vocational Childcare Teacher Relationship Specialty Start Date End Date Alicja Waldrop MD [address] [place] [address] Internal Medicine 03/07/16 Saul Castrejon MD [address] [place] [address] Internal Medicine 03/07/16
--- OUTSIDE RECORDS SUMMARY | 2025-03-11 07:19 | XMS_ITS | Referral Summary ---
Author Organization [facility] Address [address] [place] [address] Care Team Providers Care Biological Science Technician Name Role Phone No, Physician Primary Care Provider [phone] Allergies No known active allergies Medications lidocaine (LIDODERM) 5 % Place 1 patch on the skin daily Remove & discard patch within 12 hours or as directed by MD. 30 patch 12/07/2022 Active QUEtiapine (SEROquel) 25 mg tablet Take 1 tablet (25 mg total) by mouth nightly 30 tablet 12/06/2022 Active susana [id number] op-man-bor 250-40-125 mg-mg-unit tablet Take 1 tablet [...] (06/15/2020): Added automatically from request for surgery [id number] Primary osteoarthritis of knees, bilateral 05/06 Combined forms of age-related cataract of right eye 01/30/2019 Overview (01/30/2019): Added automatically from request for surgery [id number] Osteoporosis 09/21/2018 Social History Tobacco Use Types [...] on file Legal Sex Female 1:17 PM RESEARCH INSTRUCTOR Gender Identity Not on file Sexual Orientation Not on file Last Filed Vital Signs Vital Sign Reading Time Taken Comments Blood Pressure 133/78 01/02/2023 1:25 PM RESEARCH INSTRUCTOR Pulse 82 01/02/2023 1:25 PM RESEARCH INSTRUCTOR Temperature 36.7 C (98 F) 01/02/2023 1:25 PM RESEARCH INSTRUCTOR Respiratory Rate 18 01/02/2023 1:25 PM RESEARCH INSTRUCTOR Oxygen Saturation 97% 01/02/2023 1:25 PM RESEARCH INSTRUCTOR Inhaled Oxygen Concentration - - Weight 46.3 kg (102 lb) 09/18/2024 8:36 AM CDT Height 152.4 cm (5') 09/18/2024 8:36 AM CDT Body Mass Index 19.92 09/18/2024 8:36 AM CDT Plan of Treatment Not on file Medical Devices Implanted Type Area Brush Clearer Surveying Device Identifier Shelf Expiration Date Model / Serial / Lot [employer] Sn60wf.225 Acrysof Iq Natural Stableforce Acrysert 6mm 13mm 1 Piece Foldable - [id number] - [id number] Implanted:Qty: 1 on 02/14/2019 by Luis Hernandez MD at [facility] Lens Right: Eye [employer] [id number] 08/26/2023 SN60WF.22 5 / [id number] / 0 Description:Intraocular lens [employer] Sn60wf.220 Acrysof Iq Natural Stableforce Acrysert 6mm 13mm 1 Piece Foldable - [id number] - [id number] Implanted:Qty: 1 on 06/25/2020 by Luis Hernandez MD at [facility] Lens Left: Eye [employer] [id number] 10/26/2024 SN60WF.22 0 / [id number] / 0 Procedures Procedure Name Priority Date/Time Associated Diagnosis Comments DEXA AXIAL SKELETON BONE DENSITY 1 OR MORE SITES Schedule Routine, Read Routine (OP Routine) 10/18/2021 8:09 AM RESEARCH INSTRUCTOR Age-related osteoporosis without current pathological fracture from Last 3 Months or Most Recently Relevant to Health Maintenance Results * Dexa Axial Skeleton Bone Density 1 or 2 Site (10/18/2021 8:09 AM RESEARCH INSTRUCTOR) Anatomical Region Laterality Modality Body N/A Radiographic Juliet ging Narrative 10/26/2021 8:44 AM RESEARCH INSTRUCTOR Patient Name: Elena Goncalves Date of : 1945 Date of scan: 10/18/2021 Bone mineral density was performed on a HoloSkip Hop Discovery Densitometer. Based on machine cross-calibration and [...] by the International Society of Clinical Densitometry. [id number] Alicja Waldrop MD IMG DXA PROCEDURES Final Re sult from Last 3 Months or Most Recently Relevant to Health Maintenance [facility] UHC MEDICARE ADVANTAGE [place] [id number] UHC MEDICARE ADVANTAGE [facility] MEDICARE ADVANTAGE Advance Directives For more information, please contact: [phone] * LIMITED - No CPR (Latest Code [...] 11:48 AM 02/14/2019 5:13 PM Care Teams Biological Science Technician Relationship Specialty Start Date End Date No, Physician PCP - General 09/12/24
--- OUTSIDE RECORDS SUMMARY | 2025-03-11 07:19 | XMS_ITS | Encounter Summary ---
Author Organization [employer] Address [address] [place] [address] Care Team Providers Care Competitive Intelligence Manager Name Role Phone Leann Kennedy MD Primary Care Provider [phone] Encounter Details Date Type Department Care Team (Late st Contact Info) Description 06/14/2002 Outpatient Historical [facility] [address] [place] [address] Larry De La O MD NO ADDRESS ON FILE Social History Tobacco Use Types Packs/Day Years Used Date Smoking Tobacco: Never Assessed Comments Unknown Sex and Gender Information Value Date Recorded Sex Assigned at Not on file Legal Sex Female 5:24 AM CONTOUR SANDER Gender Identity Not on file Sexual Orientation Not on file documented as of this encounter Plan of Treatment Not on file documented as of this encounter Visit Diagnoses Not on filedocumented in this encounter Care Teams Competitive Intelligence Manager Relationship Specialty [place] [address] [address] PCP - General Family Practice 10/03/18 10/05/20 documented as of this encounter
--- OUTSIDE RECORDS SUMMARY | 2025-03-11 07:19 | XMS_ITS | Encounter Summary ---
Author Organization [employer] Address [address] [place] [address] Care Team Providers Care Corporate Travel Counselor Name Role Phone Leann Kennedy MD Primary Care Provider [phone] Encounter Details Date Type Department Care Team [...] on file Legal Sex Female 5:24 AM MAGAZINE FILLER Gender Identity Not on file Sexual Orientation Not on file documented as of this encounter Plan of Treatment Not on file documented as of this encounter Visit Diagnoses Diagnosis Calculus of kidney- Primary documented in this encounter Care Teams Corporate Travel Counselor Relationship Specialty [place] [address] [facility] [address] [place] [phone] PCP - General Family Practice 10/03/18 10/05/20 documented as of this encounter
--- OUTSIDE RECORDS SUMMARY | 2025-03-11 07:19 | XMS_ITS | Clinical Summary ---
Author Organization [facility] Address [address] [place] [address] Care Team Providers Care Manager Gas Name Role Phone No, Physician Primary Care Provider [phone] Allergies No known active allergies Medications lidocaine (LIDODERM) 5 % Place 1 patch on the skin daily Remove & discard patch within 12 hours or as directed by MD. 30 patch 12/07/2022 Active QUEtiapine (SEROquel) 25 mg tablet Take 1 tablet (25 mg total) by mouth nightly 30 tablet 12/06/2022 Active susana mof-smn-N4-Zn-c op-man-bor 250-40-125 mg-mg-unit tablet Take 1 tablet [...] (06/15/2020): Added automatically from request for surgery [id number] Primary osteoarthritis of knees, bilateral 05/06 Combined forms of age-related cataract of right eye 01/30/2019 Overview (01/30/2019): Added automatically from request for surgery [id number] Osteoporosis 09/21/2018 Surgical History Surgery Date Site/Laterality [...] on file Legal Sex Female 1:17 PM FOOD RUNNER Gender Identity Not on file Sexual Orientation Not on file Obstetrics History Last Filed Vital Signs Vital Sign Reading Time Taken Comments Blood Pressure 133/78 01/02/2023 1:25 PM FOOD RUNNER Pulse 82 01/02/2023 1:25 PM FOOD RUNNER Temperature 36.7 C (98 F) 01/02/2023 1:25 PM FOOD RUNNER Respiratory Rate 18 01/02/2023 1:25 PM FOOD RUNNER Oxygen Saturation 97% 01/02/2023 1:25 PM FOOD RUNNER Inhaled Oxygen Concentration - - Weight 46.3 [...] history exists Medical Devices Implanted Type Area Acid Plant Helper Device Identifier Shelf Expiration Date Model / Serial / Lot [employer] Sn60wf.225 Acrysof Iq Natural Stableforce Acrysert 6mm 13mm 1 Piece Foldable - [id number] - [id number] Implanted:Qty: 1 on 02/14/2019 by Luis Hernandez MD at [facility] Lens Right: Eye [employer] [id number] 08/26/2023 SN60WF.22 5 / [id number] / 0 Description:Intraocular lens [employer] Sn60wf.220 Acrysof Iq Natural Stableforce Acrysert 6mm 13mm 1 Piece Foldable - [id number] - [id number] Implanted:Qty: 1 on 06/25/2020 by Luis Hernandez MD at [facility] Lens Left: Eye [employer] [id number] 10/26/2024 SN60WF.22 0 / [id number] / 0 Procedures Procedure Name Priority Date/Time Associated Diagnosis Comments DEXA AXIAL SKELETON BONE DENSITY 1 OR MORE SITES Schedule Routine, Read Routine (OP Routine) 10/18/2021 8:09 AM FOOD RUNNER Age-related osteoporosis without current pathological fracture from Last 3 Months or Most Recently Relevant to Health Maintenance Results * Dexa Axial Skeleton Bone Density 1 or 2 Site (10/18/2021 8:09 AM FOOD RUNNER) Anatomical Region Laterality Modality Body N/A Radiographic Juliet ging Narrative 10/26/2021 8:44 AM FOOD RUNNER Patient Name: Elena Goncalves Date of : 1945 Date of scan: 10/18/2021 Bone mineral density was performed on a HoloPeople[employer] Discovery Densitometer. Based on machine cross-calibration and [...] by the International Society of Clinical Densitometry. [id number] Alicja Waldrop MD IMG DXA PROCEDURES Final Re sult from Last 3 Months or Most Recently Relevant to Health Maintenance [facility] UHC MEDICARE ADVANTAGE UHC MEDICARE ADVANTAGE [facility] , [address] MEDICARE ADVANTAGE Advance Directives For more information, please contact: [phone] * LIMITED - No CPR (Latest Code [...] 11:48 AM 02/14/2019 5:13 PM Care Teams Manager Gas Relationship Specialty Start Date End Date No, Physician PCP - General 09/12/24
--- OUTSIDE RECORDS SUMMARY | 2025-03-11 07:19 | XMS_ITS | Encounter Summary ---
Author Organization [employer] Address [address] [place] [address] Care Team Providers Care Railroad Commissioner Name Role Phone Leann Kennedy MD Primary Care Provider [phone] Encounter Details Date Type Department Care Team [...] on file Legal Sex Female 5:24 AM DELIVERY AGENT Gender Identity Not on file Sexual Orientation Not on file documented as of this encounter Plan of Treatment Not on file documented as of this encounter Visit Diagnoses Diagnosis Calculus of kidney- Primary documented in this encounter Care Teams Railroad Commissioner Relationship Specialty [place] [address] [facility] [address] [place] [phone] PCP - General Family Practice 10/03/18 10/05/20 documented as of this encounter
--- OUTSIDE RECORDS SUMMARY | 2025-03-11 07:19 | XMS_ITS | Encounter Summary ---
Author Organization [employer] Address [address] [place] [address] Care Team Providers Care Line Repairer Name Role Phone Leann Kennedy MD Primary Care Provider [phone] Encounter Details Date Type Department Care Team (Latest Contact Info) Description 05/28/2002 Outpatient Historical [facility] Fidel Madrigal MD NO ADDRESS ON FILE HEMATURIA (Primary Dx) Social History Tobacco Use Types Packs/Day Years Used Date Smoking Tobacco: Never Assessed Comments Unknown Sex and Gender Information Value Date Recorded Sex Assigned at Not on file Legal Sex Female 5:24 AM BUSINESS DEVELOPMENT ASSISTANT Gender Identity Not on file Sexual Orientation Not on file documented as of this encounter Plan of Treatment Not on file documented as of this encounter Visit Diagnoses Diagnosis Hematuria- Primary documented in this encounter Care Teams Line Repairer Relationship Specialty [place] [address] [facility] [address] [place] [phone] PCP - General Family Practice 10/03/18 10/05/20 documented as of this encounter
--- OUTSIDE RECORDS SUMMARY | 2025-03-11 07:19 | XMS_ITS | Encounter Summary ---
Author Organization [employer] Address 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
--- OUTSIDE RECORDS SUMMARY | 2025-03-11 07:19 | XMS_ITS | Encounter Summary ---
Author Organization [employer] Address [address] [place] [address] Care Team Providers Care Gravity Prospecting Operator Helper Name Role Phone Leann Kennedy MD Primary Care Provider [phone] Encounter Details Date Type Department Care Team (Latest Contact Info) Description 08/07/2002 Outpatient Historical [facility] Madrigal, Fidel Rosa MD NO ADDRESS ON FILE CALCULUS OF URETER (Primary Dx) Social History Tobacco Use Types Packs/Day Years Used Date Smoking Tobacco: Never Assessed Comments Unknown Sex and Gender Information Value Date Recorded Sex Assigned at Not on file Legal Sex Female 5:24 AM HYDRAULIC JACK OPERATOR Gender Identity Not on file Sexual Orientation Not on file documented as of this encounter Plan of Treatment Not on file documented as of this encounter Visit Diagnoses Diagnosis Calculus of ureter- Primary documented in this encounter Care Teams Gravity Prospecting Operator Helper Relationship Specialty [place] [address] [facility] [address] [place] [phone] PCP - General Family Practice 10/03/18 10/05/20 documented as of this encounter
--- OUTSIDE RECORDS SUMMARY | 2025-03-11 07:19 | XMS_ITS | Encounter Summary ---
Author Organization [facility] Address [address] [place] [address] Care Team Providers Care Diathermy Equipment Repairer Name Role Phone Sal Pearson MD Primary Care Provider Anastacio Lopez CRUSHER LOADER OPERATOR Primary Care Provider [phone] No, Physician Primary Care Provider [phone] Encounter Details Date Type Department Care Team (Late st Contact Info) Description 03/26/2021 Telephone [facility] [address] [place] [phone] Nicola Acosta, RT Social History Tobacco Use Types Packs/Day Years Used Date Smoking Tobacco: Never Smokeless Tobacco: Never Alcohol Use Standard Drinks/Week Comments No 0 (1 standard drink = 0.6 oz pur e alcohol) Comments No Sex and Gender Information Value Date Recorded Sex Assigned at Not on file Legal Sex Female 1:17 PM REGIONAL DIRECTOR OF FINANCE Gender Identity Not on file Sexual Orientation Not on file documented as of this encounter Plan of Treatment Not on file documented as of this encounter Visit Diagnoses Not on filedocumented in this encounter Care Teams Diathermy Equipment Repairer Relationship Specialty Start Date End Date Sal Pearson MD [address] [facility] [address] [place] [address] PCP - General 06/25/20 12/21/21 Anastacio Lopez NP [address] [address] PCP - General Internal Medicine 12/22/21 09/11/24 No, Physician PCP - General 09/12/24 documented as of this encounter
--- NOTE | 2025-03-11 07:33 | ED_ITS ---
HPI - General Adult General Chief complaint: Fall Stated complaint: GLF, NECK/BACK PAIN Time Seen by Provider: 03/11/25 07:03 History of Present Illness HPI narrative: Patient is a 79-year-old female who presents emergency department with chief complaint of fall the patient is a hospice patient a in and had a ground level fall around 520 this morning patient is complaining of a laceration to the back of the scalp the patient is under hospice care and in discussion with hospice at this time since the patient is comfort measures and hospice that CT scan were not indicated Related Data Allergies Allergy/AdvReac Type Severity Reaction Status Date / Time No Known Allergies Allergy Verified 02/17/25 18:24 Review of Systems Review of Systems: A 10 system review of systems was completed on the patient and is negative except for what is stated in the HPI. Nursing and ancillary documentation was reviewed. PMFSH Past Medical History Medical History Osteoporosis Chronic pain disorder Emphysema of lung Noted on imaging Severe protein-calorie malnutrition Dementia Surgical History Surgical History History of thyroid surgery Family History Family History Other Unknown family medical history Social History Social History Social History: Code status: Full code (the patient does not have advanced directives in place) Patient has a son and a niece. Nursing staff to talk to the patient's son and to the patient's niece. Smoking status: Never smoker Alcohol intake: never Substance use: current Substance use type: prescription drug Other substance usage details: Oxycodone 180 tablets per month Spiritual care concerns: No Exam Narrative: GENERAL: Well-appearing, well-nourished, and in no acute distress. HEAD: Normocephalic, atraumatic. EYES: PERRLA and EOMI. ENT: Nares clear, no rhinorrhea or epistaxis. Mucous membranes moist. NECK: Supple. CHEST: Clear to auscultation. No respiratory distress. HEART: Regular rate and rhythm. No murmur heard. Normal peripheral pulses. ABDOMEN: Soft, nontender, nondistended, normal active bowel sounds. EXTREMITIES: Normal range of motion. No edema. SKIN: Warm, dry, no rash. NEURO: No focal deficits. Alert and oriented x2-3 confused at times. PSYCH: Normal mood and affect. Course Vital Signs Vital signs: Vital Signs Temperature 36.6 C 03/11/25 05:58 Pulse Rate 66 03/11/25 05:58 Respiratory Rate 18 03/11/25 05:58 Blood Pressure 126/83 03/11/25 05:58 Pulse Oximetry 95 03/11/25 05:58 Oxygen Delivery Room Air 03/11/25 05:58 Temperature 36.6 C 03/11/25 05:58 Pulse Rate 70 03/11/25 07:39 Respiratory Rate 15 03/11/25 07:39 Blood Pressure 135/73 03/11/25 07:39 Pulse Oximetry 98 03/11/25 07:39 Oxygen Delivery Room Air 03/11/25 05:58 Procedures Laceration Laceration 1: Date: 03/11/25 Time: 08:12 Site: scalp Side (If applicable): left Size (cm): 4 Description: linear Depth: simple, single layer Local Anesthetic: none Pre-repair: wound explored ====== Skin Level ====== Skin layer closed with: vanna Number of sutures: 6 ====== Subcutaneous Layer ====== ====== Muscle Layer ====== ====== Tendon Layer ====== Laceration 2: Date: 03/11/25 Time: 08:13 Site: scalp Side (If applicable): right Size (cm): 3 Description: linear Depth: simple, single layer Local Anesthetic: none ====== Skin Level ====== Skin layer closed with: vnana Number of sutures: 5 ====== Subcutaneous Layer ====== ====== Muscle Layer ====== ====== Tendon Layer ====== Medical Decision Making Vital Signs Vital Signs: Vital Signs Temperature 36.6 C 03/11/25 05:58 Pulse Rate 66 03/11/25 05:58 Respiratory Rate 18 03/11/25 05:58 Blood Pressure 126/83 03/11/25 05:58 Pulse Oximetry 95 03/11/25 05:58 Oxygen Delivery Room Air 03/11/25 05:58 Temperature 36.6 C 03/11/25 05:58 Pulse Rate 70 03/11/25 07:39 Respiratory Rate 15 03/11/25 07:39 Blood Pressure 135/73 03/11/25 07:39 Pulse Oximetry 98 03/11/25 07:39 Oxygen Delivery Room Air 03/11/25 05:58 Discharge Plan Discharge Clinical Impression: Fall from ground level, Laceration of scalp, Hospice care patient Patient Disposition: NH Care Home/Asst Living Condition: Stable Instructions: Antibiotic Form, Laceration (ED) Additional Instructions: Please continue your hospice care Patient Language: Japanese Prescriptions: No Action oxycodone-acetaminophen 10-325 mg tablet 1 tablet PO Q6H PRN (Reason: pain) Qty: 12 0RF Patient Comments: Elisha states that Pt. picks up 180 tablets approx. every month Follow-up/Referrals: UNKNOWN,DOCTOR [Primary Care Provider] - Time of Disposition: 08:42
[2025-03-11 07:39] VITALS: BP 135/73; PULSE 70; RESP 15; O2SAT 98
--- NOTE | 2025-03-11 07:55 | PC.NURSE ---
EDP removed pt C-collar
--- NOTE | 2025-03-11 08:57 | PC.NURSE ---
Report called to [facility] this RN spoke with Vidya MONTILLA and answered all questions This RN also called verito Mcallister and JUNG, all questions answered
== END 2025-03-11 08:42 | disposition hospice, home (50) ==
PROVIDERS: Emergency Provider Emergency Medicine
DX: S01.01XA Laceration without foreign body of scalp, initial encounter (principal); F03.90 Unspecified dementia, unspecified severity, without behavioral disturbance, psychotic disturbance, mood disturbance, and anxiety; J43.9 Emphysema, unspecified; M81.0 Age-related osteoporosis without current pathological fracture; W18.30XA Fall on same level, unspecified, initial encounter
CPT/HCPCS: 12002; 99283